=== PATIENT | male | born 1965 | race Hispanic/Latino ===

== ENCOUNTER 2021-02-16 20:38 | Emergency (ER) | payer OTHER ==
--- NOTE | 2021-02-17 01:30 | ER ---
Nurse's Notes [facility] Name: Liu Almonte Age: 55 yrs Sex: Male : 1965 Arrival Date: 02/16/2021 Time: 20:44 Bed Treatment Private MD: Diagnosis: SARS-associated coronavirus as the cause of diseases classified elsewhere Presentation: 02/16 22:07 Chief complaint: Patient states: tingling head, back and chest slight pain under his kg ribs. Pt stated "It feels like panic attack". Pt went to [facility] 02/08 and was tested for COVID it was negative. Had chest x-ray and was told he had Pneumonia went back to [facility] on 02/10 and retested for COVID because he still didn't feel well and it was negative. Pt stated he still doesn't feel good and very fatigued. Coronavirus screen: Client denies travel out of the [place] in the last 14 days. At this time, unable to obtain information related to travel outside the [place] Client presents with at least one sign or symptom that may indicate coronavirus-19. Standard/surgical mask placed on the client. Provider contacted for isolation considerations. At this time, the client does not indicate any symptoms associated with coronavirus-19. The client reports previous COVID testing was negative. Date of collection: February 10, 2021. Ebola Screen: Patient negative for fever greater than or equal to 101.5 degrees Fahrenheit, and additional compatible Ebola Virus Disease symptoms Patient denies exposure to infectious person. Patient denies travel to an Ebola-affected area in the 21 days before illness onset. Initial Sepsis Screen: Does the patient meet any 2 criteria? No. Patient's initial sepsis screen is negative. Does the patient have a suspected source of infection? No. Patient's initial sepsis screen is negative. Risk Assessment: Do you want to hurt yourself or someone else? Patient reports no desire to harm self or others. Onset of symptoms was February 06, 2021. 22:07 Method Of Arrival: Ambulatory kg 22:07 Acuity: [place] 4 kg Triage Assessment: 02/17 01:33 Headache History: Denies prior headaches. General: Appears in no apparent distress. sh9 Behavior is calm, cooperative. Pain: Complains of pain in generalized Pain currently is 4 out of 10 on a pain scale. Pain began one week ago Also complains of no other associated symptoms. Neuro: No deficits noted. Historical: - Allergies: 02/16 22:12 Iodine; kg - Home Meds: 22:12 amlodipine 2.5 mg tab 1 tab once daily [Active]; benzonatate 200 mg oral cap 1 cap kg [Active]; Januvia 100 mg oral tab 1 tab once daily [Active]; hydroxyzine HCl 100 mg Oral tab 100 mg daily [Active]; glimepiride 4 mg Oral tab 1 tab once daily [Active]; carvedilol 3.125 mg oral tab 1 tab 2 times per day [Active]; Cefuroxime Oral 500 mg daily [Active]; losartan 100 mg oral tab 1 tab once daily [Active]; fluoxetine 20 mg Oral cap 1 cap once daily [Active]; metformin 500 mg Oral tr24 1 tab [Active]; atorvastatin 40 mg oral tab 1 tab once daily [Active]; Lantus U-100 Insulin 100 unit/mL Sub-Q crtg [Active]; - PMHx: 22:12 Hypercholesterolemia; Hypertensive disorder; Anxiety; DM; Tib/Fib SX Left; Left Ankle; kg - Immunization history:: Adult Immunizations not immunized, Client reports having NOT received the Covid vaccine. - Social history:: Smoking status: Patient reports the use of cigarette tobacco products, Patient/guardian denies using tobacco, Stopped _ months ago 1. Screenin/26 01:35 Abuse screen: Denies threats or abuse. Denies injuries from another. Nutritional sh9 screening: No deficits noted. Tuberculosis screening: No symptoms or risk factors identified. Fall Risk None identified. Assessment: 01:34 General: Appears in no apparent distress. Behavior is calm, cooperative. Pain: sh9 Complains of pain in generalized. Neuro: No deficits noted. Cardiovascular: No deficits noted. Respiratory: No deficits noted. GI: No deficits noted. : No deficits noted. EENT: No deficits noted. Derm: No deficits noted. No signs and/or symptoms reported regarding the dermatologic system. Musculoskeletal: No deficits noted. Vital Signs: 02/16 22:07 BP 153 / 90; Pulse 94; Resp 20; Temp 98.2(O); Pulse Ox 100% on R/A; Weight 99.79 kg kg (M); Height 5 ft. 4 in. (162.56 cm) (R); Pain 5/10; 02/17 01:34 BP 155 / 88; Pulse 93; Resp 18; Pulse Ox 100% ; sh9 02/16 22:07 Body Mass Index 37.76 (99.79 kg, 162.56 cm) kg ED Course: 02/16 20:44 Patient arrived in ED. bp1 22:12 Triage completed. kg 22:12 Arm band placed on right wrist. kg 22:43 XRAY Chest Pa And Lat (2 Views) In Process Unspecified. EDMS 02/17 00:53 Shira Ramos, RN is Primary Nurse. sh9 01:03 Juan Jose Jones PA is PHCP. cp 01:03 Misbah Garcia MD is Attending Physician. cp 01:35 Patient has correct armband on for positive identification. Bed in low position. Call 9 light in reach. 01:45 No provider procedures requiring assistance completed. Patient did not have IV access sh9 during this emergency room visit. Administered Medications: No medications were administered Outcome: 01:29 Discharge ordered by MD. cp 01:45 Discharged to home ambulatory. sh9 01:45 Condition: stable 01:45 Discharge instructions given to patient. 01:46 Patient left the ED. sh9 Signatures: Dispatcher [employer] EDNV Juan Jose Jones PA PA cp Paniauga, Brittany bp1 Katherine Messer, PAULINA RN kg Shira Ramos, PAULINA RN sh9
--- NOTE | 2021-02-17 01:30 | EDPHYS ---
Physician Documentation [facility] Name: Liu Almonte Age: 55 yrs Sex: Male : 1965 Arrival Date: 02/16/2021 Time: 20:44 Bed Treatment Private MD: ED Physician Misbah Garcia HPI: 02/17 01:17 This 55 yrs old Male presents to ER via Ambulatory with complaints of cp Headache, Chest Tightness, Joint Pain, -Diagnosed with bacteria pneumonia 02/08/21. 01:17 The patient complains of pain to the top of head. The patient describes the headache as cp aching. 01:17 Associated signs and symptoms: Pertinent positives: malaise, joint pain. Severity of cp symptoms: in the emergency department the pain has improved, mildly. Historical: - Allergies: 02/16 22:12 Iodine; kg - Home Meds: 22:12 amlodipine 2.5 mg tab 1 tab once daily [Active]; benzonatate 200 mg oral cap 1 cap kg [Active]; Januvia 100 mg oral tab 1 tab once daily [Active]; hydroxyzine HCl 100 mg Oral tab 100 mg daily [Active]; glimepiride 4 mg Oral tab 1 tab once daily [Active]; carvedilol 3.125 mg oral tab 1 tab 2 times per day [Active]; Cefuroxime Oral 500 mg daily [Active]; losartan 100 mg oral tab 1 tab once daily [Active]; fluoxetine 20 mg Oral cap 1 cap once daily [Active]; metformin 500 mg Oral tr24 1 tab [Active]; atorvastatin 40 mg oral tab 1 tab once daily [Active]; Lantus U-100 Insulin 100 unit/mL Sub-Q crtg [Active]; - PMHx: 22:12 Hypercholesterolemia; Hypertensive disorder; Anxiety; DM; Tib/Fib SX Left; Left Ankle; kg - Immunization history:: Adult Immunizations not immunized, Client reports having NOT received the Covid vaccine. - Social history:: Smoking status: Patient reports the use of cigarette tobacco products, Patient/guardian denies using tobacco, Stopped _ months ago 1. ROS: 02/17 01:18 Constitutional: Positive for body aches, Negative for chills, fever, poor PO intake. cp 01:18 Cardiovascular: Negative for chest pain, edema, palpitations. cp 01:18 Respiratory: Positive for shortness of breath, Negative for wheezing. 01:18 Neck: Negative for pain with movement, pain at rest, stiffness. cp 01:18 Abdomen/GI: Negative for abdominal pain, nausea, vomiting, and diarrhea. 01:18 Skin: Negative for rash. 01:18 Neuro: Positive for headache, Negative for altered mental status, weakness. 01:18 All other systems are negative. Exam: 01:24 Head/Face: Normocephalic, atraumatic. cp 01:24 Constitutional: The patient appears in no acute distress, alert, awake, non-diaphoretic, non-toxic, well developed, well nourished, obese. 01:24 Eyes: Periorbital structures: appear normal, Conjunctiva: normal, no exudate, no injection, Sclera: no appreciated abnormality, Lids and lashes: appear normal, bilaterally. 01:24 ENT: External ear(s): are unremarkable, Nose: is normal, Mouth: Lips: moist, Oral mucosa: pink and intact, moist, Posterior pharynx: Airway: no evidence of obstruction, patent. 01:24 Neck: ROM/movement: is normal, is supple, without pain, no range of motions limitations, no meningismus. 01:24 Chest/axilla: Inspection: normal, Palpation: is normal, no crepitus, no tenderness. 01:24 Cardiovascular: Rate: normal, Rhythm: regular. 01:24 Respiratory: the patient does not display signs of respiratory distress, Respirations: normal, no use of accessory muscles, no retractions, labored breathing, is not present, Breath sounds: are clear throughout, no decreased breath sounds, no stridor, no wheezing. 01:24 Abdomen/GI: Inspection: abdomen appears normal, Palpation: abdomen is soft and non-tender, in all quadrants. 01:24 Neuro: Orientation: to person, place \T\ time. Mentation: is normal, Motor: moves all fours, strength is normal. Vital Signs: 02/16 22:07 BP 153 / 90; Pulse 94; Resp 20; Temp 98.2(O); Pulse Ox 100% on R/A; Weight 99.79 kg kg (M); Height 5 ft. 4 in. (162.56 cm) (R); Pain 5/10; 02/17 01:34 BP 155 / 88; Pulse 93; Resp 18; Pulse Ox 100% ; sh9 02/16 22:07 Body Mass Index 37.76 (99.79 kg, 162.56 cm) kg MDM: 01:00 Differential diagnosis: migraine, sinusitis, tension headache, influenza, COVID-19. cp 01:15 Patient medically screened. cp 01:27 Data reviewed: vital signs, nurses notes, lab test result(s), and as a result, I will cp discharge patient. Test interpretation: by ED physician or midlevel provider: chest xray negative for focal pneumonia. Counseling: I had a detailed discussion with the patient and/or guardian regarding: the historical points, exam findings, and any diagnostic results supporting the discharge/admit diagnosis, lab results, radiology results. 02/16 23:55 Order name: SARS-COV-2 RT PCR; Complete Time: 01:03 EDMS 02/16 22:23 Order name: XRAY Chest Pa And Lat (2 Views) kg Administered Medications: No medications were administered Disposition: 01:40 Chart complete. cp 03:28 Co-signature as Attending Physician, Misbah Garcia MD. pkl Disposition Summary: 02/17/21 01:29 Discharge Ordered Location: Home cp Problem: new cp Symptoms: are unchanged cp Condition: Stable cp Diagnosis - SARS-associated coronavirus as the cause of diseases classified elsewhere cp Followup: cp - With: Private Physician - When: 2 - 3 days - Reason: Worsening of condition Discharge Instructions: - Discharge Summary Sheet cp - COVID-19 cp - Things to Know about the COVID-19 Pandemic - [facility] cp - 10 Things You Can Do to Manage Your COVID-19 Symptoms at Home - [facility] cp - COVID-19: Quarantine vs. Isolation - [facility] cp - Prevent the Spread of COVID-19 if You Are Sick - [facility] cp Forms: - Medication Reconciliation Form cp - Thank You Letter cp - Antibiotic Education cp - Prescription Opioid Use cp Prescriptions: - ivermectin 3 mg Oral tablet - take 6 tablet by ORAL route every other day; 12 tablet; Refills: 0, Product cp Selection Permitted - Zithromax Z-Donis 250 mg Oral Tablet - take 1 tablet by ORAL route as directed for 5 days Day 1 - take two (2) tablets cp one time. Day 2, 3, 4 , 5 take one (1) tablet once daily.; 6 tablet; Refills: 0, Product Selection Permitted Signatures: Dispatcher [employer] EDMS Misbah Garcia MD MD pkl Juan Jose Jones PA PA cp Graham, Kristen, RN RN kg Corrections: (The following items were deleted from the chart) 02/16 22:57 22:23 CORONAVIRUS+ ordered. EDMS EDMS
[2021-02-17 01:52] VITALS: TEMP 98.2; O2SAT 100
[2021-02-17 01:53] VITALS: BP 155/88
--- NOTE | 2021-02-17 08:48 | RAD REPORT ---
EXAM DESCRIPTION: RAD - Chest Pa And Lat (2 Views) - 02/16/2021 10:43 pm CLINICAL HISTORY: PAIN Chest pain. COMPARISON: No comparisons FINDINGS: The lungs are grossly clear. The heart is normal in size. No displaced fractures. Small hi atal hernia.
== END 2021-02-17 01:46 | disposition home or self-care (01) ==
LOC: ER 20:38
DX: U07.1 COVID-19 (principal); I10 Essential (primary) hypertension; E11.9 Type 2 diabetes mellitus without complications; E78.00 Pure hypercholesterolemia, unspecified; Z79.4 Long term (current) use of insulin
CPT/HCPCS: 71046; 99283; U0003

== ENCOUNTER 2021-07-01 10:05 | Emergency (ER) | payer OTHER ==
[2021-07-01] MEDS ORDERED: KETOROLAC 30 MG/ML INJ ONE (11:34)
--- NOTE | 2021-07-01 11:38 | RAD REPORT ---
EXAM DESCRIPTION: CT - Head Brain Wo Cont - 07/01/2021 11:21 am CLINICAL HISTORY: HEADACHE, nausea, dizziness, recent COVID exposure COMPARISON: No comparisons TECHNIQUE: Axial 5 mm thick images of the head were obtained without IV contrast. All CT scans are performed using dose optimization technique as appropriate and may include automated exposure control or mA/KV adjustment according to patient size. FINDINGS: No intracranial hemorrhage, mass, edema or shift of mid-line structures. No acute cortical based infarction, cortical edema or sulcal effacement. No abnormal extra-axial fluid collections. Ve ntricles are normal. No measurable atrophy. There are few punctate areas of diminished attenuation sc attered in the cerebral white matter. Patient is relatively on; however, this is typical for mild chr onic ischemic change. Vasculitis, migraine headache or demyelinization etiologies are possible but wo uld need supporting clinical findings. Mastoid air cells and visualized portions of the paranasal sinuses are clear. No acute bony findings. IMPRESSION: No hemorrhage, mass or acute intracranial finding. Scattered small attenuation abnormalities of the cerebral white matter are typically chronic ischemic change though the patient is relatively young. Vasculitis, demyelinization and migraine headache et iologies are considerations if there are supporting clinical findings. No emergent CT finding noted. Follow-up outpatient MRI imaging may be helpful for better characteriza tion of the cerebral white matter findings.
[2021-07-01 12:06] LABS: Absolute Lymphocytes (CBC) 1.6 K/uL (0.7-4.9); Hematocrit 46.7 % (39.6-49.0); Lymphocytes % 17.1 % (15.3-44.8); MPV 8.3 fL (7.6-11.3)
[2021-07-01 12:24] LABS: ALT/SGPT 48 U/L (12-78); AST/SGOT 20 U/L (15-37); Albumin 3.4 g/dL (3.4-5.0); Alkaline Phosphatase 82 U/L (45-117); BUN Blood Urea Nitrogen 16 mg/dL (7-18); Bicarbonate 22 mmol/L (21-32); Bilirubin Direct < 0.1 mg/dL (0-0.2); Bilirubin Total 0.4 mg/dL (0.2-1.0); Creatine Phosphokinase 141 U/L (39-308); Potassium 4.4 mmol/L (3.5-5.1); Protein, Total 7.3 g/dL (6.4-8.2); Sodium Level 135 mmol/L (136-145)
[2021-07-01 12:27] LABS: Glucose Level 447 mg/dL (74-106)
[2021-07-01 13:03] LABS: SARS-COV-2 RT PCR POSITIVE (NEGATIVE)
--- NOTE | 2021-07-01 13:09 | ER ---
Nurse's Notes [facility] Name: Liu Almonte Age: 56 yrs Sex: Male : 1965 Arrival Date: 07/01/2021 Time: 10:07 Bed 19 Private MD: Diagnosis: SARS-associated coronavirus as the cause of diseases classified elsewhere;Hyperglycemia, unspecified Presentation: 07/01 10:37 Chief complaint: Patient states: i have had a headache for 4 or 5 days. it goes away tw2 when i take ibuprofen. i also have had neck and LEFT shoulder pain that started a week ago. i went to see my mom over [place] and she was COVID positive. i do have some congestion. i do want to be tested. 10:43 Coronavirus screen: cough unrelated to allergies, headache. Ebola Screen: Patient tw2 denies travel to an Ebola-affected area in the 21 days before illness onset. Initial Sepsis Screen: Does the patient meet any 2 criteria? HR > 90 bpm. No. Patient's initial sepsis screen is negative. Does the patient have a suspected source of infection? No. Patient's initial sepsis screen is negative. Risk Assessment: Do you want to hurt yourself or someone else? Patient reports no desire to harm self or others. Onset of symptoms was July 01, 2021. 10:43 Method Of Arrival: Ambulatory tw2 10:43 Acuity: [place] 3 tw2 Triage Assessment: 10:42 Headache History: The patient has had previous headaches and this one is different than tw2 previous episodes, and this one is more severe than previous episodes. General: Appears in no apparent distress. obese, well groomed, Behavior is calm, cooperative, appropriate for age. Pain: Pain radiates to neck Pain currently is 6 out of 10 on a pain scale. Pain began 4-5 days Also complains of no other associated symptoms. Historical: - Allergies: 10:40 Iodine; tw2 - Home Meds: 10:40 carvedilol 3.125 mg Oral tab 1 tab 2 times per day [Active]; amlodipine 2.5 mg tab 1 tw2 tab once daily [Active]; atorvastatin 40 mg Oral tab 1 tab once daily [Active]; benzonatate 200 mg Oral cap 1 cap [Active]; Cefuroxime Oral 500 mg daily [Active]; fluoxetine 20 mg Oral cap 1 cap once daily [Active]; glimepiride 4 mg Oral tab 1 tab once daily [Active]; hydroxyzine HCl 100 mg Oral tab 100 mg daily [Active]; Januvia 100 mg Oral tab 1 tab once daily [Active]; Lantus U-100 Insulin 100 unit/mL Sub-Q crtg [Active]; losartan 100 mg Oral tab 1 tab once daily [Active]; metformin 500 mg Oral tr24 1 tab [Active]; - PMHx: 10:40 Anxiety; DM; Hypertensive disorder; Hypercholesterolemia; Left Ankle; Tib/Fib SX Left; tw2 - Immunization history:: Client reports having NOT received the Covid vaccine. Flu vaccine is not up to date. - Social history:: Smoking status: Patient reports the use of cigarette tobacco products, denies chronic smoking, but will smoke occasionally, Patient uses street drugs, marijuana, daily, usually about every day. Screenin:48 Abuse screen: Denies threats or abuse. Denies injuries from another. Nutritional bp screening: No deficits noted. Tuberculosis screening: No symptoms or risk factors identified. Fall Risk None identified. Assessment: 10:41 Reassessment: pt swabbed in triage by Justine Hatfield. Pain: Complains of pain in face - tw2 all over. Neuro: Reports headache. 10:48 Reassessment: PT AMBULATORY FROM TRIAGE. bp 13:14 Reassessment: PT D/C HOME AMBULATORY, DX WITH SARS-COVID. bp Vital Signs: 10:41 BP 162 / 94; Pulse 125; Resp 18; Temp 97.8(TE); Pulse Ox 96% on R/A; Weight 108.86 kg tw2 (R); Height 5 ft. 4 in. (162.56 cm); Pain 6/10; 13:13 BP 127 / 80; Pulse 95; Resp 17; Pulse Ox 99% ; bp 10:41 Body Mass Index 41.20 (108.86 kg, 162.56 cm) tw2 ED Course: 10:07 Patient arrived in ED. as 10:41 Arm band placed on. tw2 10:43 Triage completed. tw2 10:47 González Galdamez, PAULINA is Primary Nurse. bp 10:48 Patient has correct armband on for positive identification. Bed in low position. Call bp light in reach. Side rails up X2. 10:50 Navarro Bocanegra MD is Attending Physician. sp3 11:20 CT Head Brain wo Cont In Process Unspecified. EDMS 11:43 Inserted saline lock: 20 gauge in left forearm, using aseptic technique. Blood bp collected. 13:14 No provider procedures requiring assistance completed. IV discontinued, intact, bp bleeding controlled, No redness/swelling at site. Pressure dressing applied. Administered Medications: 11:40 Drug: Ketorolac 30 mg Route: IVP; Site: left forearm; bp 13:15 Follow up: Response: Pain is decreased bp Outcome: 13:09 Discharge ordered by . sp3 13:14 Discharged to home ambulatory. bp 13:14 Condition: stable 13:14 Discharge instructions given to patient, Instructed on discharge instructions, follow up and referral plans. Demonstrated understanding of instructions, follow-up care. 13:20 Patient left the ED. bp Signatures: Dispatcher [employer] EDMS Naty Muñoz Tara, RN RN tw2 González Galdamez, RN RN bp Navarro Bocanegra MD MD sp3
--- NOTE | 2021-07-01 13:09 | EDPHYS ---
Physician Documentation [facility] Name: Liu Almonte Age: 56 yrs Sex: Male : 1965 Arrival Date: 07/01/2021 Time: 10:07 Bed 19 Private MD: ED Physician Navarro Bocanegra HPI: 07/01 11:09 This 56 yrs old Male presents to ER via Ambulatory with complaints of sp3 Headache, Shoulder Pain, Neck Pain, >24Hrs Old. 11:11 This 56 yrs old Male presents to ER via Ambulatory with complaints of sp3 Headache, Shoulder Pain, Neck Pain, >24Hrs Old. 11:11 56-year-old male with history of hypertension, diabetes, hyperlipidemia, and "kidney sp3 problems" (patient has an appointment with a environmental services project manager in a few weeks as all of his physicians including PCP PAULINA Nieto) presents to the ED today for chief complaint headache, bilateral upper back and neck pain for 4 to 5 days. Patient states that the muscle pain is worse than the headache and started when he was visiting his mother who was diagnosed with COVID. He also states that the bed he was sleeping on "had a hole in it and was very uncomfortable" but now that he is back in his bed the cramping and pain is still going on. He comes in today for evaluation of the symptoms as well as a COVID 19 test. Patient states that his pain usually subsides with ibuprofen he has been taking it off and on for the last several days which has helped. On review of systems, he denies chest pain, shortness of breath, cough, fever, loss of taste or smell, abdominal pain, nausea, vomiting, diarrhea, rash, neuro symptoms, any other symptoms at this time.. Historical: - Allergies: 10:40 Iodine; tw2 - Home Meds: 10:40 carvedilol 3.125 mg Oral tab 1 tab 2 times per day [Active]; amlodipine 2.5 mg tab 1 tw2 tab once daily [Active]; atorvastatin 40 mg Oral tab 1 tab once daily [Active]; benzonatate 200 mg Oral cap 1 cap [Active]; Cefuroxime Oral 500 mg daily [Active]; fluoxetine 20 mg Oral cap 1 cap once daily [Active]; glimepiride 4 mg Oral tab 1 tab once daily [Active]; hydroxyzine HCl 100 mg Oral tab 100 mg daily [Active]; Januvia 100 mg Oral tab 1 tab once daily [Active]; Lantus U-100 Insulin 100 unit/mL Sub-Q crtg [Active]; losartan 100 mg Oral tab 1 tab once daily [Active]; metformin 500 mg Oral tr24 1 tab [Active]; - PMHx: 10:40 Anxiety; DM; Hypertensive disorder; Hypercholesterolemia; Left Ankle; Tib/Fib SX Left; tw2 - Immunization history:: Client reports having NOT received the Covid vaccine. Flu vaccine is not up to date. - Social history:: Smoking status: Patient reports the use of cigarette tobacco products, denies chronic smoking, but will smoke occasionally, Patient uses street drugs, marijuana, daily, usually about every day. ROS: 11:14 Constitutional: Negative for fever, chills, and weight loss, Eyes: Negative for injury, sp3 pain, redness, and discharge, ENT: Negative for injury, pain, and discharge, Neck: Negative for injury, pain, and swelling, Cardiovascular: Negative for chest pain, palpitations, and edema, Respiratory: Negative for shortness of breath, cough, wheezing, and pleuritic chest pain, Abdomen/GI: Negative for abdominal pain, nausea, vomiting, diarrhea, and constipation, Back: Negative for injury and pain, MS/Extremity: Negative for injury and deformity, Skin: Negative for injury, rash, and discoloration, Psych: Negative for depression, anxiety, suicide ideation, homicidal ideation, and hallucinations, Allergy/Immunology: Negative for hives, rash, and allergies, Endocrine: Negative for neck swelling, polydipsia, polyuria, polyphagia, and marked weight changes, Hematologic/Lymphatic: Negative for swollen nodes, abnormal bleeding, and unusual bruising. 11:14 All other systems are negative. Exam: 11:14 Constitutional: This is a well developed, well nourished patient who is awake, alert, sp3 and in no acute distress. Head/Face: Normocephalic, atraumatic. Eyes: Pupils equal round and reactive to light, extra-ocular motions intact. Lids and lashes normal. Conjunctiva and sclera are non-icteric and not injected. Cornea within normal limits. Periorbital areas with no swelling, redness, or edema. ENT: Nares patent. No nasal discharge, no septal abnormalities noted. External auditory canals are clear. Oropharynx with no redness, swelling, or masses, exudates, or evidence of obstruction, uvula midline. Mucous membranes moist. Chest/axilla: Normal chest wall appearance and motion. Nontender with no deformity. No lesions are appreciated. Cardiovascular: Regular rate and rhythm with a normal S1 and S2. No gallops, murmurs, or rubs. Normal PMI, no JVD. No pulse deficits. Respiratory: Lungs have equal breath sounds bilaterally, clear to auscultation and percussion. No rales, rhonchi or wheezes noted. No increased work of breathing, no retractions or nasal flaring. Abdomen/GI: Soft, non-tender, with normal bowel sounds. No distension or tympany. No guarding or rebound. No evidence of tenderness throughout. Back: No spinal tenderness. No costovertebral tenderness. Full range of motion. Skin: Warm, dry with normal turgor. Normal color with no rashes, no lesions, and no evidence of cellulitis. MS/ Extremity: Pulses equal, no cyanosis. Neurovascular intact. Full, normal range of motion. Neuro: Awake and alert, GCS 15, oriented to person, place, time, and situation. Cranial nerves II-XII grossly intact. Motor strength 5/5 in all extremities. Sensory grossly intact. Cerebellar exam normal. Normal gait. Psych: Awake, alert, with orientation to person, place and time. Behavior, mood, and affect are within normal limits. 11:14 Neck: 56-year-old male with chief complaint muscle aches and mild headache. Will obtain COVID-19 test, head CT, routine labs including CK level. Event highly suspicious for ICH, meningitis, cord compression, or any other neurological emergency at this time. If work-up is negative will discharge patient to PCP follow-up and continued outpatient management.. Vital Signs: 10:41 BP 162 / 94; Pulse 125; Resp 18; Temp 97.8(TE); Pulse Ox 96% on R/A; Weight 108.86 kg tw2 (R); Height 5 ft. 4 in. (162.56 cm); Pain 6/10; 13:13 BP 127 / 80; Pulse 95; Resp 17; Pulse Ox 99% ; bp 10:41 Body Mass Index 41.20 (108.86 kg, 162.56 cm) tw2 MDM: 11:01 Patient medically screened. sp3 13:07 Data reviewed: vital signs, nurses notes. sp3 13:08 ED course: As COVID-19 as suspected given his high risk contact. CT head is negative sp3 labs are normal other than glucose. Will discharge patient home at this time with supportive care directions.. 07/01 10:40 Order name: COVID-19/FLU A+B (Document "Date of Onset" if Symptomatic); Complete Time: tw2 13:07 07/01 11:05 Order name: Basic Metabolic Panel; Complete Time: 13:07 sp3 07/01 11:05 Order name: CBC with Diff; Complete Time: 13: sp3 07/01 11:05 Order name: Hepatic Function; Complete Time: 13: sp3 07/01 11:05 Order name: CK; Complete Time: 13:07 sp3 07/01 11:05 Order name: CT Head Brain wo Cont; Complete Time: 13:07 sp3 07/01 11:05 Order name: IV Saline Lock; Complete Time: 11:43 sp3 07/01 11:05 Order name: Labs collected and sent; Complete Time: 11:43 sp3 Administered Medications: 11:40 Drug: Ketorolac 30 mg Route: IVP; Site: left forearm; bp 13:15 Follow up: Response: Pain is decreased bp Disposition Summary: 07/01/21 13:09 Discharge Ordered Location: Home sp3 Condition: Stable sp3 Diagnosis - SARS-associated coronavirus as the cause of diseases classified elsewhere sp3 - Hyperglycemia, unspecified sp3 Followup: sp3 - With: Private Physician - When: As needed - Reason: Continuance of care Discharge Instructions: - Discharge Summary Sheet sp3 - Hyperglycemia sp3 - COVID-19 sp3 - 10 Things You Can Do to Manage Your COVID-19 Symptoms at Home - [facility] sp3 Forms: - Medication Reconciliation Form sp3 - Thank You Letter sp3 - Antibiotic Education sp3 - Prescription Opioid Use sp3 Signatures: Dispatcher [employer] Hillary Hernandez RN RN tw2 González Galdamez RN RN bp Navarro Bocanegra MD MD sp3
[2021-07-01 13:31] VITALS: TEMP 97.8
[2021-07-01 13:32] VITALS: BP 127/80; O2SAT 99
== END 2021-07-01 13:20 | disposition home or self-care (01) ==
LOC: ER 10:05
DX: U07.1 COVID-19 (principal); E11.65 Type 2 diabetes mellitus with hyperglycemia; F41.9 Anxiety disorder, unspecified
CPT/HCPCS: 85025; 80048; 36415; 82550; 80076; 0240U; 70450; 96374; 99284

== ENCOUNTER 2022-11-10 13:13 | Emergency (ER) | payer OTHER ==
[2022-11-10 13:40] LABS: Absolute Lymphocytes (CBC) 3.2 K/uL (0.7-4.9); Hematocrit 43.1 % (39.6-49.0); Lymphocytes % 29.8 % (15.3-44.8); MCV 88.1 fL (80-100); MPV 8.5 fL (7.6-11.3); RBC Red Blood Cell Count 4.89 M/uL (4.33-5.43)
--- NOTE | 2022-11-10 13:44 | RAD REPORT ---
EXAM DESCRIPTION: CT - Ct Stroke Brain Wo Cont - 11/10/2022 1:33 pm CLINICAL HISTORY: STROKE ALERT COMPARISON: Head Brain Wo Cont dated 07/01/2021 TECHNIQUE: Noncontrast head CT images ad were obtained without IV contrast. Multiplanar reformats we re generated and reviewed. All CT scans are performed using dose optimization technique as appropriate and may include automated exposure control or mA/KV adjustment according to patient size. FINDINGS: No intracranial hemorrhage, mass, or edema. Midline structures are unremarkable. Normal ventricular caliber for age. Right subinsular and basal ganglia foci of hypoattenuation are stable, could reflect sequelae of blade balancer vicki small vessel ischemic changes. Chen-white matter differentiation is preserved, without evidence o f acute infarct. No abnormal extra-axial fluid collections. Mastoid air cells and visualized portions of the paranasal sinuses are clear. No acute bony findings. IMPRESSION: No evidence of an acute intracranial process. Stable right-sided white matter foci of hypoattenuation, nonspecific, but could reflect sequelae of chronic small vessel ischemic changes. The findings were communicated to Juan Jose Aburto on 11/10/2022 at 13:39 hours.
[2022-11-10] MEDS ORDERED: NA CHLORIDE 0.9% 1,000 ML ONE (13:48)
[2022-11-10] MEDS ORDERED: FAMOTIDINE 20 MG/2 ML VIAL IV ONE (13:48)
[2022-11-10] MEDS ORDERED: FOLIC ACID 5 MG/ML VIAL ONE (13:49)
[2022-11-10 13:51] LABS: Protime INR 1.04
--- NOTE | 2022-11-10 13:53 | EDPHYS ---
Physician Documentation [facility] Name: Liu Almonte Age: 57 yrs Sex: Male : 1965 Arrival Date: 11/10/2022 Time: 13:13 Bed 5 Private MD: ED Physician Juan Jose Aburto HPI: 11/10 13:29 This 57 yrs old Male presents to ER via EMS with complaints of S/S of Possible espinoza Stroke. 13:29 The patient's problem is reported as weakness, in the left upper extremity, in the left espinoza lower extremity. Onset: The symptoms/episode began/occurred 45 hour(s) ago. Duration: The episode is continuous. Context: the episode(s) was witnessed, by family. The symptoms are alleviated by nothing. The symptoms are aggravated by nothing. Associated signs and symptoms: Pertinent positives: weakness. Severity of symptoms: At their worst the symptoms were moderate in the emergency department the symptoms are unchanged. Patient's baseline: Neuro: alert and fully oriented. The patient has not experienced similar symptoms in the past. Historical: - Allergies: 13:26 Iodine; mb9 - Home Meds: 14:02 dexcom [Active]; Fluconazole Oral [Active]; Insulin Glargine Sub-Q [Active]; mb9 - PMHx: 13:26 Anxiety; Tib/Fib SX Left; Hypertensive disorder; Left Ankle; Hypercholesterolemia; DM; mb9 - PSHx: 13:26 None; mb9 - Immunization history:: Adult Immunizations up to date. - Social history:: Smoking status: Patient reports the use of cigarette tobacco products, denies chronic smoking, but will smoke occasionally. ROS: 13:30 Constitutional: Negative for fever, chills, and weight loss, Eyes: Negative for injury, espinoza pain, redness, and discharge, ENT: Negative for injury, pain, and discharge, Neck: Negative for injury, pain, and swelling, Cardiovascular: Negative for chest pain, palpitations, and edema, Respiratory: Negative for shortness of breath, cough, wheezing, and pleuritic chest pain, Abdomen/GI: Negative for abdominal pain, nausea, vomiting, diarrhea, and constipation, Back: Negative for injury and pain, : Negative for injury, bleeding, discharge, and swelling, MS/Extremity: Negative for injury and deformity, Skin: Negative for injury, rash, and discoloration, Psych: Negative for depression, anxiety, suicide ideation, homicidal ideation, and hallucinations, Allergy/Immunology: Negative for hives, rash, and allergies, Endocrine: Negative for neck swelling, polydipsia, polyuria, polyphagia, and marked weight changes, Hematologic/Lymphatic: Negative for swollen nodes, abnormal bleeding, and unusual bruising. 13:30 Neuro: Positive for dizziness, weakness, of the left arm and left leg. 13:30 Psych: Negative for anxiety, depression. Exam: 13:43 Radiologist reports: neg espinoza 13:43 Constitutional: This is a well developed, well nourished patient who is awake, alert, and in no acute distress. Head/Face: Normocephalic, atraumatic. Eyes: Pupils equal round and reactive to light, extra-ocular motions intact. Lids and lashes normal. Conjunctiva and sclera are non-icteric and not injected. Cornea within normal limits. Periorbital areas with no swelling, redness, or edema. ENT: Nares patent. No nasal discharge, no septal abnormalities noted. Tympanic membranes are normal and external auditory canals are clear. Oropharynx with no redness, swelling, or masses, exudates, or evidence of obstruction, uvula midline. Mucous membranes moist. Neck: Trachea midline, no thyromegaly or masses palpated, and no cervical lymphadenopathy. Supple, full range of motion without nuchal rigidity, or vertebral point tenderness. No Meningismus. Chest/axilla: Normal chest wall appearance and motion. Nontender with no deformity. No lesions are appreciated. Cardiovascular: Regular rate and rhythm with a normal S1 and S2. No gallops, murmurs, or rubs. Normal PMI, no JVD. No pulse deficits. Respiratory: Lungs have equal breath sounds bilaterally, clear to auscultation and percussion. No rales, rhonchi or wheezes noted. No increased work of breathing, no retractions or nasal flaring. Abdomen/GI: Soft, non-tender, with normal bowel sounds. No distension or tympany. No guarding or rebound. No evidence of tenderness throughout. Back: No spinal tenderness. No costovertebral tenderness. Full range of motion. Male : Normal genitalia with no discharge or lesions. Skin: Warm, dry with normal turgor. Normal color with no rashes, no lesions, and no evidence of cellulitis. MS/ Extremity: Pulses equal, no cyanosis. Neurovascular intact. Full, normal range of motion. Psych: Awake, alert, with orientation to person, place and time. Behavior, mood, and affect are within normal limits. 13:43 ECG was reviewed by the Attending Physician. Vital Signs: 13:24 BP 200 / 90; Pulse 120; Resp 18; Temp 98.1(O); Pulse Ox 100% on R/A; Weight 104 kg; mb9 Height 5 ft. 4 in. ; Pain 0/10; 13:53 BP 140 / 82; Pulse 115; Resp 20; Pulse Ox 99% on R/A; mb9 14:08 BP 147 / 84; Pulse 112; Resp 18; Pulse Ox 99% on R/A; mb9 13:24 Body Mass Index 39.36 (104.00 kg, 162.56 cm) mb9 13:24 Pain Scale: Adult mb9 NIH Stroke Scale Scores: 13:20 NIHSS Score: 3 mb9 13:24 NIHSS Score: 3 mb9 13:52 NIHSS Score: 4 espinoza 14:08 NIHSS Score: 3 mb9 14:23 NIHSS Score: 2 mb9 Kenney Coma Score: 13:52 Eye Response: spontaneous(4). Motor Response: obeys commands(6). Verbal Response: espinoza oriented(5). Total: 15. MDM: 13:25 Patient medically screened. espinoza 13:45 Differential diagnosis: CVA, TIA. Data reviewed: vital signs, nurses notes, lab test espinoza result(s), EKG, radiologic studies, CT scan, MRI, plain films. Consideration of Admission/Observation Patient was admitted/placed on observation. Escalation of care including admission/observation considered. Management of patient was discussed with the following: Safety Advisor: neurologist. Independent interpretation of the following test(s) in the Emergency Department EKG: See my EKG interpretation above. Test considered but Not performed: CT: no ct angio head or neck. Care significantly affected by the following chronic conditions: Diabetes, Hypertension, Obesity, hypoerchlesterol. Counseling: I had a detailed discussion with the patient and/or guardian regarding: the historical points, exam findings, and any diagnostic results supporting the discharge/admit diagnosis, the presence of at least one elevated blood pressure reading (>120/80) during this emergency department visit, lab results, the need to transfer to another facility, for higher level of care, [facility] does not immediately have the required specialist. 11/10 13:19 Order name: Basic Metabolic Panel 11/10 13:19 Order name: CBC with Diff; Complete Time: 13:59 11/10 13:19 Order name: High Sensitivity Troponin 11/10 13:19 Order name: Protime (+inr); Complete Time: 13:59 11/10 13:19 Order name: Ptt, Activated; Complete Time: 13:59 11/10 13:27 Order name: CRP; Complete Time: 13:59 [facility] 11/10 13:47 Order name: CREATININE WHOLE BLOOD; Complete Time: 13:59 EDMD 11/10 13:53 Order name: Glucose, Ancillary Testing; Complete Time: 13:59 [facility] 11/10 13:19 Order name: CT Stroke Brain w/o Contrast; Complete Time: 13:59 11/10 13:19 Order name: Stroke CXR 1 View 11/10 13:27 Order name: MRI Stroke Protocol [facility] 11/10 13:19 Order name: EKG; Complete Time: 13:20 11/10 13:19 Order name: Accucheck; Complete Time: 13:29 11/10 13:19 Order name: Cardiac monitoring; Complete Time: 13:29 11/10 13:19 Order name: EKG - Nurse/Tech; Complete Time: 13:43 11/10 13:19 Order name: IV Saline Lock; Complete Time: 14:07 11/10 13:19 Order name: Labs collected and sent; Complete Time: 14: 11/10 13:19 Order name: NPO; Complete Time: 13:29 11/10 13:19 Order name: O2 Per Protocol; Complete Time: 13:29 11/10 13:19 Order name: O2 Sat Monitoring; Complete Time: 13:29 11/10 13:19 Order name: Stroke Swallow Screen; Complete Time: 14:07 11/10 13:49 Order name: Blood Pressure Recheck; Complete Time: 14:06 [facility] EC:43 Rate is 120 beats/min. Rhythm is regular. QRS [place] is Normal. AL interval is normal. [facility] QRS interval is normal. QT interval is normal. No Q waves. T waves are Normal. No ST changes noted. Clinical impression: Sinus tachycardia and No evidence of ischemia. Reviewed by me. Administered Medications: 13:53 Drug: TNK FOR STROKE - Tenecteplase IV 0.25 mg/kg {Co-Signature: vladimir Osuna, mb9 Lily GALLARDO).} Route: IV; Rate: per protocol; Site: left hand; 14:14 Follow up: Response: No adverse reaction; IV Status: Completed infusion mb9 13:55 Drug: Famotidine IVP 20 mg Route: IVP; Site: left hand; mb9 14:14 Follow up: Response: No adverse reaction mb9 13:58 Drug: foLIC Acid IVPB 1 mg Route: IVPB; Site: left hand; mb9 14:15 Follow up: Response: No adverse reaction; IV Status: Completed infusion mb9 14:00 Drug: NS 0.9% IV 1000 ml Route: IV; Rate: 1 bolus; Site: left hand; mb9 14:40 Drug: MethylPrednisoLONE IVP 125 mg Route: IVP; Site: left hand; mb9 Disposition Summary: 11/10/22 13:52 Transfer Ordered Transfer Location: [facility] espinoza Reason: Higher level of care espinoza Condition: Fair espinoza Problem: new espinoza Symptoms: have improved espinoza Accepting Physician: to nicu(11/10/22 15:05) eb Diagnosis - Cerebral infarction, unspecified - acute, left arm and leg weakness espinoza Forms: - Medication Reconciliation Form espinoza - SBAR form espinoza NIH Stroke Scale - NIH Stroke Score Date: 11/10/2022 Time: 13:20 Total Score = 3 10. Dysarthria (speech clarity - read or repeat words) - 0(Normal) 11. Extinction and Inattention (visual/tactile/auditory/spatial/personal) - 0(No abnormality) 1a. Level of Consciousness (LOC) - 0(Alert) 1b. Level of Consciousness (LOC) (Month \T\ Age) - 0(Both) 1c. LOC Commands (Open \T\ Closes Eyes/Care Director Rn) - 0(Both) 2. Best Gaze (Lateral Gaze Paresis) - 0(Normal) 3. Visual Field Loss - 0(No visual loss) 4. Facial Palsy - 0(Normal) 5a. Left Arm: Motor (10-second hold) - 1(Drift) 5b. Right Arm: Motor (10-second hold) - 0(No drift) 6a. Left Leg: Motor (5-second hold - always test supine) - 1(Drift) 6b. Right Leg: Motor (5-second hold - always test supine) - 0(No drift) 7. Limb Ataxia (finger/nose \T\ heel/flores - test with eyes open) - 0(Absent) 8. Sensory Loss (pinprick arms/legs/face) - 1(Mild to moderate loss) 9. Best Language: Aphasia (description/naming/reading) - 0(No aphasia) Initials: mb9 NIH Stroke Scale - NIH Stroke Score Date: 11/10/2022 Time: 13:24 Total Score = 3 10. Dysarthria (speech clarity - read or repeat words) - 0(Normal) 11. Extinction and Inattention (visual/tactile/auditory/spatial/personal) - 0(No abnormality) 1a. Level of Consciousness (LOC) - 0(Alert) 1b. Level of Consciousness (LOC) (Month \T\ Age) - 0(Both) 1c. LOC Commands (Open \T\ Closes Eyes/Care Director Rn) - 0(Both) 2. Best Gaze (Lateral Gaze Paresis) - 0(Normal) 3. Visual Field Loss - 0(No visual loss) 4. Facial Palsy - 0(Normal) 5a. Left Arm: Motor (10-second hold) - 1(Drift) 5b. Right Arm: Motor (10-second hold) - 0(No drift) 6a. Left Leg: Motor (5-second hold - always test supine) - 1(Drift) 6b. Right Leg: Motor (5-second hold - always test supine) - 0(No drift) 7. Limb Ataxia (finger/nose \T\ heel/flores - test with eyes open) - 0(Absent) 8. Sensory Loss (pinprick arms/legs/face) - 1(Mild to moderate loss) 9. Best Language: Aphasia (description/naming/reading) - 0(No aphasia) Initials: mb9 NIH Stroke Scale - NIH Stroke Score Date: 11/10/2022 Time: 13:52 Total Score = 4 10. Dysarthria (speech clarity - read or repeat words) - 0(Normal) 11. Extinction and Inattention (visual/tactile/auditory/spatial/personal) - 0(No abnormality) 1a. Level of Consciousness (LOC) - 0(Alert) 1b. Level of Consciousness (LOC) (Month \T\ Age) - 0(Both) 1c. LOC Commands (Open \T\ Closes Eyes/Care Director Rn) - 0(Both) 2. Best Gaze (Lateral Gaze Paresis) - 0(Normal) 3. Visual Field Loss - 0(No visual loss) 4. Facial Palsy - 0(Normal) 5a. Left Arm: Motor (10-second hold) - 1(Drift) 5b. Right Arm: Motor (10-second hold) - 0(No drift) 6a. Left Leg: Motor (5-second hold - always test supine) - 1(Drift) 6b. Right Leg: Motor (5-second hold - always test supine) - 0(No drift) 7. Limb Ataxia (finger/nose \T\ heel/flores - test with eyes open) - 2(Present in two limbs) 8. Sensory Loss (pinprick arms/legs/face) - 0(Normal) 9. Best Language: Aphasia (description/naming/reading) - 0(No aphasia) Initials: [facility] NIH Stroke Scale - NIH Stroke Score Date: 11/10/2022 Time: 14:08 Total Score = 3 10. Dysarthria (speech clarity - read or repeat words) - 0(Normal) 11. Extinction and Inattention (visual/tactile/auditory/spatial/personal) - 0(No abnormality) 1a. Level of Consciousness (LOC) - 0(Alert) 1b. Level of Consciousness (LOC) (Month \T\ Age) - 0(Both) 1c. LOC Commands (Open \T\ Closes Eyes/Care Director Rn) - 0(Both) 2. Best Gaze (Lateral Gaze Paresis) - 0(Normal) 3. Visual Field Loss - 0(No visual loss) 4. Facial Palsy - 0(Normal) 5a. Left Arm: Motor (10-second hold) - 1(Drift) 5b. Right Arm: Motor (10-second hold) - 0(No drift) 6a. Left Leg: Motor (5-second hold - always test supine) - 1(Drift) 6b. Right Leg: Motor (5-second hold - always test supine) - 0(No drift) 7. Limb Ataxia (finger/nose \T\ heel/flores - test with eyes open) - 0(Absent) 8. Sensory Loss (pinprick arms/legs/face) - 1(Mild to moderate loss) 9. Best Language: Aphasia (description/naming/reading) - 0(No aphasia) Initials: mb9 NIH Stroke Scale - NIH Stroke Score Date: 11/10/2022 Time: 14:23 Total Score = 2 10. Dysarthria (speech clarity - read or repeat words) - 0(Normal) 11. Extinction and Inattention (visual/tactile/auditory/spatial/personal) - 0(No abnormality) 1a. Level of Consciousness (LOC) - 0(Alert) 1b. Level of Consciousness (LOC) (Month \T\ Age) - 0(Both) 1c. LOC Commands (Open \T\ Closes Eyes/Care Director Rn) - 0(Both) 2. Best Gaze (Lateral Gaze Paresis) - 0(Normal) 3. Visual Field Loss - 0(No visual loss) 4. Facial Palsy - 0(Normal) 5a. Left Arm: Motor (10-second hold) - 1(Drift) 5b. Right Arm: Motor (10-second hold) - 0(No drift) 6a. Left Leg: Motor (5-second hold - always test supine) - 1(Drift) 6b. Right Leg: Motor (5-second hold - always test supine) - 0(No drift) 7. Limb Ataxia (finger/nose \T\ heel/flores - test with eyes open) - 0(Absent) 8. Sensory Loss (pinprick arms/legs/face) - 0(Normal) 9. Best Language: Aphasia (description/naming/reading) - 0(No aphasia) Initials: mb9 Signatures: Dispatcher [employer] EDMS Juan Jose Aburto MD MD cha Botello, Elizabeth eb Breneman, Mary Beth, RN RN mb9 Lily Jimenez RN ph Corrections: (The following items were deleted from the chart) 13:47 13:27 Head Angio+CT.RAD.BRZ ordered. EDMS EDMS 13:47 13:27 Neck Angio+CT.RAD.BRZ ordered. EDMS EDMS 15:05 13:52 to [facility] espinoza [place]
--- NOTE | 2022-11-10 13:53 | ER ---
Nurse's Notes [facility] Name: Liu Almonte Age: 57 yrs Sex: Male : 1965 Arrival Date: 11/10/2022 Time: 13:13 Bed 5 Private MD: Diagnosis: Cerebral infarction, unspecified-acute, left arm and leg weakness Presentation: 11/10 13:24 Chief complaint: EMS states: "pt started becoming dizzy and having left sided weakness mb9 and tingling 40 minutes ago. BGL 354. NIH scale on site was 0". Coronavirus screen: Vaccine status: Patient reports being unvaccinated. Ebola Screen: No symptoms or risks identified at this time. The patients blood glucose was checked before arriving to the hospital and was found to be normal. Initial Sepsis Screen: Does the patient meet any 2 criteria? No. Patient's initial sepsis screen is negative. Does the patient have a suspected source of infection? No. Patient's initial sepsis screen is negative. Risk Assessment: Do you want to hurt yourself or someone else? Patient reports no desire to harm self or others. Onset of symptoms was November 10, 2022. 13:24 Method Of Arrival: EMS: [facility] mb9 13:24 Acuity: [place] 2 mb9 Historical: - Allergies: 13:26 Iodine; mb9 - Home Meds: 14:02 dexcom [Active]; Fluconazole Oral [Active]; Insulin Glargine Sub-Q [Active]; mb9 - PMHx: 13:26 Anxiety; Tib/Fib SX Left; Hypertensive disorder; Left Ankle; Hypercholesterolemia; DM; mb9 - PSHx: 13:26 None; mb9 - Immunization history:: Adult Immunizations up to date. - Social history:: Smoking status: Patient reports the use of cigarette tobacco products, denies chronic smoking, but will smoke occasionally. Screenin:20 [facility] ED Fall Risk Assessment (Adult) History of falling in the last 3 months, mb9 including since admission No falls in past 3 months (0 pts) Confusion or Disorientation No (0 pts) Intoxicated or Sedated No (0 pts) Impaired Gait No (0 pts) Mobility Assist Device Used No (0 pt) Altered Elimination No (0 pt) Score/Fall Risk Level 0 - 2 = Low Risk. [facility] ED Fall Risk Assessment (Adult) Score/Fall Risk Level 0 - 2 = Low Risk Oriented to surroundings, Maintained a safe environment, Educated pt \\T\\ family on fall prevention, incl call for assistance when getting out of bed. Abuse screen: Denies threats or abuse. Nutritional screening: No deficits noted. Tuberculosis screening: No symptoms or risk factors identified. 13:20 VAN Screening: Arm Drift: Minor drift. Visual Disturbance: No visual disturbance noted. mb9 Aphasia: No aphasia noted. Neglect: No neglect noted. 13:40 [place] [facility] Protocol Brief Cognitive Screen What is your name? Normal, Where are you mb9 right now? Normal, What year is it? Normal. Oral Mechanism Examination Facial Symmetry: Normal, Motion: Normal, Lip Closure: Normal, Oral Mechanism Result: Normal. 3 oz Water Swallow Challenge: Pt able to drink all water without stopping, coughing, choking or throat clearing: Yes Result: PASS. Assessment: 13:20 Reassessment: Code stroke called ahead. 9 13:24 General: Appears uncomfortable, Behavior is calm, cooperative, appropriate for age. mb9 Pain: Denies pain. 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 Cardiovascular: Heart tones S1 S2 present Rhythm is regular. Respiratory: Airway is patent Respiratory effort is even, unlabored, Respiratory pattern is regular, symmetrical, Breath sounds are clear bilaterally. GI: Abdomen is round non-distended, Bowel sounds present X 4 quads. Derm: Skin is pink, warm \\T\\ dry. Musculoskeletal: Range of motion: intact in all extremities. 13:28 VAN Scoring: Arm Drift: Minor drift mb9 14:24 Reassessment: Gave report to transferring nurse PAULINA Vazquez. 9 14:24 Reassessment: See stroke packet for more information. mb9 Vital Signs: 13:24 BP 200 / 90; Pulse 120; Resp 18; Temp 98.1(O); Pulse Ox 100% on R/A; Weight 104 kg; mb9 Height 5 ft. 4 in. ; Pain 0/10; 13:53 BP 140 / 82; Pulse 115; Resp 20; Pulse Ox 99% on R/A; mb9 14:08 BP 147 / 84; Pulse 112; Resp 18; Pulse Ox 99% on R/A; mb9 13:24 Body Mass Index 39.36 (104.00 kg, 162.56 cm) mb9 13:24 Pain Scale: Adult mb9 Kenney Coma Score: 13:52 Eye Response: spontaneous(4). Motor Response: obeys commands(6). Verbal Response: espinoza oriented(5). Total: 15. NIH Stroke Scale Scores: 13:20 NIHSS Score: 3 mb9 13:24 NIHSS Score: 3 mb9 13:52 NIHSS Score: 4 espinoza 14:08 NIHSS Score: 3 mb9 14:23 NIHSS Score: 2 mb9 ED Course: 13:16 Patient arrived in ED. eb 13:19 Juan Jose Aburto MD is Attending Physician. eb 13:24 Arm band placed on. mb9 13:26 Triage completed. mb9 13:29 Carol Vivar RN is Primary Nurse. mb9 13:29 Placed in gown. Bed in low position. Call light in reach. Side rails up X 1. Client mb9 placed on continuous cardiac and pulse oximetry monitoring. NIBP monitoring applied. ore tester on. 13:32 initiated a transfer with OPAL De from the [facility]. eb 13:35 CT Stroke Brain w/o Contrast In Process Unspecified. EDMS 13:35 connected the neuro [employer] line for [facility] with Dr. Aburto for patient transfer eb consultation. 13:[address] Thompson the child care leader fellow to Dr. King with Dr. Aburto for eb patient transfer consultation. 13:50 administrative approval given by OPAL De/ patient has been accepted to [facility] eb [address] [place] [address] bed 7511/ Dr. Sim King has accepted the patient in transfer/ report to be called to [phone]. 13:56 Stroke CXR 1 View In Process Unspecified. EDMS 14:15 No provider procedures requiring assistance completed. mb9 14:24 Patient transferred, IV remains in place. mb9 Administered Medications: 13:53 Drug: TNK FOR STROKE - Tenecteplase IV 0.25 mg/kg {Co-Signature: ph (Tony, mb9 Lily GALLARDO).} Route: IV; Rate: per protocol; Site: left hand; 14:14 Follow up: Response: No adverse reaction; IV Status: Completed infusion mb9 13:55 Drug: Famotidine IVP 20 mg Route: IVP; Site: left hand; mb9 14:14 Follow up: Response: No adverse reaction mb9 13:58 Drug: foLIC Acid IVPB 1 mg Route: IVPB; Site: left hand; mb9 14:15 Follow up: Response: No adverse reaction; IV Status: Completed infusion mb9 14:00 Drug: NS 0.9% IV 1000 ml Route: IV; Rate: 1 bolus; Site: left hand; mb9 14:40 Drug: MethylPrednisoLONE IVP 125 mg Route: IVP; Site: left hand; mb9 Medication: 14:07 VIS not applicable for this client. mb9 Outcome: 13:52 ER care complete, transfer ordered by MD. doran 14:23 Transferred to [facility], Transfer form completed. X-rays sent w/ mb9 patient. 14:23 Condition: stable 14:23 Instructed on the need for transfer. 15:05 Patient left the ED. NIH Stroke Scale - NIH Stroke Score Date: 11/10/2022 Time: 13:20 Total Score = 3 10. Dysarthria (speech clarity - read or repeat words) - 0(Normal) 11. Extinction and Inattention (visual/tactile/auditory/spatial/personal) - 0(No abnormality) 1a. Level of Consciousness (LOC) - 0(Alert) 1b. Level of Consciousness (LOC) (Month \\T\\ Age) - 0(Both) 1c. LOC Commands (Open \\T\\ Closes Eyes/Coke Drawer Hand) - 0(Both) 2. Best Gaze (Lateral Gaze Paresis) - 0(Normal) 3. Visual Field Loss - 0(No visual loss) 4. Facial Palsy - 0(Normal) 5a. Left Arm: Motor (10-second hold) - 1(Drift) 5b. Right Arm: Motor (10-second hold) - 0(No drift) 6a. Left Leg: Motor (5-second hold - always test supine) - 1(Drift) 6b. Right Leg: Motor (5-second hold - always test supine) - 0(No drift) 7. Limb Ataxia (finger/nose \\T\\ heel/flores - test with eyes open) - 0(Absent) 8. Sensory Loss (pinprick arms/legs/face) - 1(Mild to moderate loss) 9. Best Language: Aphasia (description/naming/reading) - 0(No aphasia) Initials: [facility] NIH Stroke Scale - NIH Stroke Score Date: 11/10/2022 Time: 13:24 Total Score = 3 10. Dysarthria (speech clarity - read or repeat words) - 0(Normal) 11. Extinction and Inattention (visual/tactile/auditory/spatial/personal) - 0(No abnormality) 1a. Level of Consciousness (LOC) - 0(Alert) 1b. Level of Consciousness (LOC) (Month \\T\\ Age) - 0(Both) 1c. LOC Commands (Open \\T\\ Closes Eyes/Coke Drawer Hand) - 0(Both) 2. Best Gaze (Lateral Gaze Paresis) - 0(Normal) 3. Visual Field Loss - 0(No visual loss) 4. Facial Palsy - 0(Normal) 5a. Left Arm: Motor (10-second hold) - 1(Drift) 5b. Right Arm: Motor (10-second hold) - 0(No drift) 6a. Left Leg: Motor (5-second hold - always test supine) - 1(Drift) 6b. Right Leg: Motor (5-second hold - always test supine) - 0(No drift) 7. Limb Ataxia (finger/nose \\T\\ heel/flores - test with eyes open) - 0(Absent) 8. Sensory Loss (pinprick arms/legs/face) - 1(Mild to moderate loss) 9. Best Language: Aphasia (description/naming/reading) - 0(No aphasia) Initials: 9 NIH Stroke Scale - NIH Stroke Score Date: 11/10/2022 Time: 13:52 Total Score = 4 10. Dysarthria (speech clarity - read or repeat words) - 0(Normal) 11. Extinction and Inattention (visual/tactile/auditory/spatial/personal) - 0(No abnormality) 1a. Level of Consciousness (LOC) - 0(Alert) 1b. Level of Consciousness (LOC) (Month \\T\\ Age) - 0(Both) 1c. LOC Commands (Open \\T\\ Closes Eyes/Coke Drawer Hand) - 0(Both) 2. Best Gaze (Lateral Gaze Paresis) - 0(Normal) 3. Visual Field Loss - 0(No visual loss) 4. Facial Palsy - 0(Normal) 5a. Left Arm: Motor (10-second hold) - 1(Drift) 5b. Right Arm: Motor (10-second hold) - 0(No drift) 6a. Left Leg: Motor (5-second hold - always test supine) - 1(Drift) 6b. Right Leg: Motor (5-second hold - always test supine) - 0(No drift) 7. Limb Ataxia (finger/nose \\T\\ heel/flores - test with eyes open) - 2(Present in two limbs) 8. Sensory Loss (pinprick arms/legs/face) - 0(Normal) 9. Best Language: Aphasia (description/naming/reading) - 0(No aphasia) Initials: [facility] NIH Stroke Scale - NIH Stroke Score Date: 11/10/2022 Time: 14:08 Total Score = 3 10. Dysarthria (speech clarity - read or repeat words) - 0(Normal) 11. Extinction and Inattention (visual/tactile/auditory/spatial/personal) - 0(No abnormality) 1a. Level of Consciousness (LOC) - 0(Alert) 1b. Level of Consciousness (LOC) (Month \\T\\ Age) - 0(Both) 1c. LOC Commands (Open \\T\\ Closes Eyes/Coke Drawer Hand) - 0(Both) 2. Best Gaze (Lateral Gaze Paresis) - 0(Normal) 3. Visual Field Loss - 0(No visual loss) 4. Facial Palsy - 0(Normal) 5a. Left Arm: Motor (10-second hold) - 1(Drift) 5b. Right Arm: Motor (10-second hold) - 0(No drift) 6a. Left Leg: Motor (5-second hold - always test supine) - 1(Drift) 6b. Right Leg: Motor (5-second hold - always test supine) - 0(No drift) 7. Limb Ataxia (finger/nose \\T\\ heel/flores - test with eyes open) - 0(Absent) 8. Sensory Loss (pinprick arms/legs/face) - 1(Mild to moderate loss) 9. Best Language: Aphasia (description/naming/reading) - 0(No aphasia) Initials: mb9 NIH Stroke Scale - NIH Stroke Score Date: 11/10/2022 Time: 14:23 Total Score = 2 10. Dysarthria (speech clarity - read or repeat words) - 0(Normal) 11. Extinction and Inattention (visual/tactile/auditory/spatial/personal) - 0(No abnormality) 1a. Level of Consciousness (LOC) - 0(Alert) 1b. Level of Consciousness (LOC) (Month \\T\\ Age) - 0(Both) 1c. LOC Commands (Open \\T\\ Closes Eyes/Coke Drawer Hand) - 0(Both) 2. Best Gaze (Lateral Gaze Paresis) - 0(Normal) 3. Visual Field Loss - 0(No visual loss) 4. Facial Palsy - 0(Normal) 5a. Left Arm: Motor (10-second hold) - 1(Drift) 5b. Right Arm: Motor (10-second hold) - 0(No drift) 6a. Left Leg: Motor (5-second hold - always test supine) - 1(Drift) 6b. Right Leg: Motor (5-second hold - always test supine) - 0(No drift) 7. Limb Ataxia (finger/nose \\T\\ heel/flores - test with eyes open) - 0(Absent) 8. Sensory Loss (pinprick arms/legs/face) - 0(Normal) 9. Best Language: Aphasia (description/naming/reading) - 0(No aphasia) Initials: mb9 Signatures: Dispatcher [employer] EDJuan Jose Hansen MD MD cha Botello, Elizabeth eb Breneman, Mary Beth, RN RN mb9 Lily Jimenez RN ph Corrections: (The following items were deleted from the chart) 13:37 13:24 BP 200 / 90; Resp 18bpm; Pulse Ox 100% RA; Temp 98.1F Oral; 148.78 kg; mb9 Height 5 ft. 4 in.; BMI: 56.3; Pain 0/10, Adult; mb9 13:49 13:24 BP 200 / 90; Pulse 120bpm; Resp 18bpm; Pulse Ox 100% RA; Temp 98.1F Oral; mb9 148.78 kg; Height 5 ft. 4 in.; BMI: 56.3; Pain 0/10, Adult; mb9 14:32 14:05 BP 140 / 82; Pulse 115bpm; Resp 20bpm; Pulse Ox 99% RA; mb9 mb9
[2022-11-10] MEDS ORDERED: TENECTEPLASE 50 MG/10 ML VIAL IV ONE (13:54)
[2022-11-10 14:06] LABS: Potassium 3.5 mEq/L (3.5-5.1); Troponin High Sensitivity 3.5 pg/mL (<58.9)
--- NOTE | 2022-11-10 14:06 | RAD REPORT ---
EXAM DESCRIPTION: RAD - Chest Single View - 11/10/2022 1:55 pm CLINICAL HISTORY: weakness Chest pain. COMPARISON: Chest Pa And Lat (2 Views) dated 02/16/2021 FINDINGS: Portable technique limits examination quality. The lungs are grossly clear. The heart is normal in size. No displaced fractures. IMPRESSION: No acute intrathoracic process suspected.
[2022-11-10] MEDS ORDERED: METHYLPREDNISOLONE 125 MG INJ ONE (14:46)
[2022-11-10 15:14] VITALS: TEMP 98.1
[2022-11-10 15:16] VITALS: O2SAT 99
[2022-11-10 15:18] VITALS: BP 147/84
--- NOTE | 2022-11-13 15:27 | EKG ---
Test Date: 2022-11-10 Test Time: 13:36:27 Beam Builder: DAGOBERTO MEASUREMENT RESULTS: Intervals: Rate: 120 DC: 140 QRSD: 94 QT: 340 QTc: 480 [place]: P: 29 DC: 140 QRS: -16 T: -1 INTERPRETIVE STATEMENTS: Sinus tachycardia Voltage criteria for left ventricular hypertrophy Abnormal ECG No previous ECG available for comparison Electronically Signed On 11-13-22 15:22:22 CDT by Diego Triplett
== END 2022-11-10 15:05 | disposition short-term general hospital (02) ==
LOC: ER 13:13
DX: I63.9 Cerebral infarction, unspecified (principal); I10 Essential (primary) hypertension; R29.703 NIHSS score 3; E11.9 Type 2 diabetes mellitus without complications; Z79.4 Long term (current) use of insulin; F17.210 Nicotine dependence, cigarettes, uncomplicated; Z91.048 Other nonmedicinal substance allergy status
CPT/HCPCS: 96374; 85025; 80048; 36415; 85610; 82565; 82947; 85730; 84484; 86140; 70450; 71045; J3101; J2930; J7030; 93005

== ENCOUNTER 2022-11-21 09:31 | Inpatient (IN) | payer OTHER ==
[2022-11-22 10:10] VITALS: BMI 38.1
[2022-11-22] MEDS ORDERED: BISACODYL E.C. 5 MG TAB PO PRN (10:44)
[2022-11-22] MEDS ORDERED: GLUCAGON 1 MG/VIAL IM PRN (10:45)
[2022-11-22] MEDS ORDERED: D10W 250 ML BAG IV PRN (10:45)
[2022-11-22] MEDS ORDERED: ONDANSETRON 4 MG (ODT) TAB PO PRN (10:50)
[2022-11-22] MEDS ORDERED: POLYETHYL GLY 3350 17 GM/DOSE PO PRN (10:51)
[2022-11-22] MEDS ORDERED: SIMETHICONE 80 MG TAB PO PRN (10:51)
[2022-11-22] MEDS: INSULIN -REGULAR HUMAN 50 UNIT/0.5 ML ML SQ SCH ×3 (12:08→20:28)
[2022-11-22] MEDS: GABAPENTIN 300 MG CAP PO SCH ×2 (14:38→20:28)
[2022-11-22] MEDS: ACETAMINOPHEN 500 MG TAB PO PRN (16:18)
[2022-11-22] MEDS ORDERED: AMLODIPINE 5 MG TAB ONE (19:58)
[2022-11-22] MEDS: DOCUSATE NA/SENNA CONC 1 TAB PO SCH (20:28)
[2022-11-22] MEDS: ATORVASTATIN 80 MG TAB PO SCH (20:28)
[2022-11-22] MEDS: INSULIN GLARGINE 100 UNIT/ML SQ SCH (20:28)
[2022-11-22] MEDS: APIXABAN 2.5 MG TABLET PO SCH (20:28)
[2022-11-22] MEDS: AMLODIPINE 5 MG TAB PO SCH (20:29)
--- NOTE | 2022-11-22 23:01 | HP ---
Date of Admission: 11/22/2022 Time Of Service: 1:00 p.m. Chief Complaint: Stroke. History Of Present Illness: Mr. Almonte is a 57-year-old, right-handed, patient with multip le medical problems including type 2 diabetes mellitus, diabetic neuropathy, chronic kidney disease, obesity, erectile dysfunction, dyslipidemia, hypertension, obstructive sleep apnea, history of alcoho l and cocaine abuse along with tobacco use who came to [facility] on 11/10/2022 with onset o f left upper and lower extremities weakness and numbness. He arrived 45 minutes after onset of sympt oms and after negative head CT scan and all contraindications to TNKs were ruled out, he did receive TNKs and was subsequently transferred to [facility] in [place] for higher level of care. He was admitted there in ICU and evaluated and managed further. MRI showed a right thalam ic stroke and chronic lacunar infarcts. He was treated with dual antiplatelet therapy, high-dose sta tin, and folic acid. His risk factors were modified and were treated actually with medications inclu ding his diabetes mellitus, hypertension, treated for tobacco sensation. He was evaluated by Physica l, Occupational, Speech Therapy and determined that he required inpatient rehabilitation. He has sig nificant weakness in the left upper and lower extremities, some dysarthria, dysphagia, and facial asy mmetry. He did have significant risk of falling and difficulty maintaining and performing his activi ties of daily living. As a result of his comorbid conditions and his need for aggressive inpatient r ehabilitation, he was admitted to the inpatient rehabilitation unit at [facility] for physic al, occupational, and speech therapy. Past Medical History: Diabetes mellitus, rectal dysfunction, dyslipidemia, hypertension, diabetic ne uropathy, obstructive sleep apnea, and multiple strokes in the past. Allergies: CODEINE. Family History: Noncontributory. Social History: Smokes and occasionally alcohol, tobacco, cigarettes, and uses cocaine. Past Surgical History: None. Home Medications: Fluconazole, insulin subcutaneously. Current Medications: While hospitalized, Tylenol 500 mg every 6 hours as needed, Norvasc 5 mg twice daily, Eliquis 2.5 mg twice daily, aspirin 81 mg daily, Lipitor 80 mg at bedtime, Plavix 75 mg daily, Flexeril 10 mg 3 times daily, Prozac 20 mg daily, gabapentin 300 mg 3 times daily, Atarax 25 mg 3 ti mes daily as needed for anxiety, Semglee insulin 15 units subcutaneously twice daily, Cozaar 100 mg d aily, lidocaine patch apply topically daily, Toprol-XL 25 mg daily, Zofran 4 mg every 6 hours as need ed, Protonix 40 mg daily, Senokot S 1 at bedtime, simethicone 80 mg every 6 hours as needed, thiamine 100 mg daily. X-ray/imaging: Brain MRI on 11/12/2022 showed acute infarct in the right thalamus. Old lacunar infa rct in the right striatocapsular region. MRA of the neck showed no significant high-grade stenosis. Laboratory Studies: Complete blood count with differential is completely normal. Coagulation panel, INR 1.04. Chemistry: Sodium 134, potassium 3.5, chloride 107, carbon dioxide 22, BUN 15, creatinin e 0.75, glucose ranged from 211-228. C-reactive protein on the is 3.64. Review of Systems: Mr. Almonte is resting comfortably in bed, waiting for therapy. He has no significant complaints. He denies any fevers or chills. No significant nausea or vomiting. No myalgias, arthralgias. No sign ificant rash, headache, weight change. No active psychiatric issues. No gastrointestinal or genitou rinary issues. He has very poor dentition. Neurological Examination: He is alert, oriented to situation, place, and person. He follows command s appropriately. His cranial nerve examination shows slight decrease of the left nasolabial fold wit h good excursions. Sensation appeared intact, but slightly decreased in the left compared to right f wanda. His strength is slightly weaker on the left compared to right. He has 4/5 proximally and dista lly in the left lower extremity as well, around 4/5 compared to the right 5/5 decreased sensation in the left compared to right upper and lower extremities. Current Level Of Functioning: Today, he ambulated 50 feet, 75 feet twice, 100 feet, 140 feet, and 12 5 feet with minimal assistance using a rolling walker. He ascended and descended 10 steps with minim um assistance using bilateral handrails. He did bathing with standby assistance. Patient was somewh at impulsive with his transfers. He is being evaluated by Speech Therapy. Mr. Almonte is admitted to the inpatient rehabilitation unit with a rehabilitation impairment category is 01 stroke. His rehab ilitation impairment group code is 01.1, left body involvement, right brain. His etiologic diagnosis is acute infarct in the right thalamus. His active comorbidities are alcohol abuse, anxiety, depres eliza, diabetic neuropathy, dyslipidemia, hypertension, obstructive sleep apnea, diabetes mellitus typ e 2. Plan: 1.He will have physical and occupational therapy 3.5 hours 5 of 7 days. Also, speech therapy 0.5 ho urs a day, 5 of 7 days a week. 2.He will continue aggressive management of his hypertension, currently with Norvasc 5 mg twice gabe y. Dyslipidemia will be treated with Lipitor. Stroke risk reduction with aspirin 81 mg. Plavix 75 mg daily for DVT risk reduction with Eliquis 2.5 mg daily; Flexeril for muscle spasms; Prozac for his psychiatric issues of behavioral disturbances, which are very well controlled and not an issue; Atar ax for anxiety; Semglee insulin 15 units twice daily for diabetes. In addition to his Norvasc, the c alcium channel francisco, he is going to continue Toprol 25 mg, beta francisco, and losartan 100 mg twice daily. We will continue thiamine for alcohol withdrawal and Senokot S for constipation. Impact Of Comorbidities: Given the patient's risk of withdrawal, he is on thiamine and will be watch ed for that in terms of heart rate, blood pressure, and any agitation. His risk of bleeding is prese nt since he is on dual platelet antiplatelet therapy and Eliquis, so he will be carefully watched. H emoglobin will be followed. Muscle relaxants also on board. The risk of falling due to weakness. H janiya will be carefully ambulated with gait belt at all times and using a rolling walker. Rehab Specific Plan: 1.Mr. Almonte will have physical and occupational therapy 3 hours a day, 5 of 7 days to improve his u pper and lower body dressing, toileting, transferring, and performing his activities of daily living. He will be evaluated by Speech Therapy and if need be, we will have 0.5 hours of speech therapy сергей ly 5 of 7 days. 2.He will have his comorbid conditions managed by residential and daily physician evaluation and management. 3.The patient has a good understanding of his admission and discharge to the inpatient rehabilitatio n unit and the multidisciplinary approach to his recovery. If need be, he will have additional servi soham from cardiology service, renal service, nutritional service, and diabetic teaching nurse as appro priate. Given his complex medical condition and risk of further complications, rehabilitation cannot be safely or effectively performed at the lower level of care such as residential. Barriers To Discharge: Given his risk of using drugs in the past and alcohol, he will be watched for any withdrawal symptoms. Estimated Length Of Stay: Around 10 days. Disposition: Home with family. Prognosis: Good. Rehabilitation Goals: 1.Become independent with upper and lower body dressing. 2.Independent with transferring and toileting and showering. 3.Being able to ambulate 500 feet with modified independence. 4.Up and down 10 steps with modified independence. 5.Manage all medical conditions appropriately with daily nursing evaluation and, management and phys ician valuation and management. I acknowledge I have personally performed a full physical examination on Mr. Almonte no later than 24 hours after his admission to the inpatient rehabilitation facility and determined that he is able to tolerate the above course of treatment at an intensive level for a reasonable period of time. A deta iled individualized plan of care for him will be completed by hospital day 4 based on the preadmissio n screen, history and physical, and therapy evaluations. LOAN/DRE Voice ID: [id number]
[2022-11-23] MEDS: ACETAMINOPHEN 500 MG TAB PO PRN ×2 (01:04→07:58)
[2022-11-23 02:14] LABS: Specific Gravity 1.006 (1.005-1.030); Urine Bacteria None Seen /HPF (<20); Urine Bilirubin NEGATIVE (Negative); Urine Blood Negative (Negative); Urine Clarity Clear (Clear); Urine Color Colorless (Yellow); Urine Glucose NEGATIVE (Negative); Urine Protein NEGATIVE (Negative); Urine RBC None Seen /HPF (None Seen); Urine Urobilinogen Normal (Normal)
[2022-11-23] MEDS: PANTOPRAZOLE 40MG TABLET PO SCH (05:23)
[2022-11-23] MEDS: METOPROLOL XL 25 MG TAB PO SCH (05:23)
[2022-11-23 05:56] LABS: Hematocrit 41.3 % (39.6-49.0); MCV 86.7 fL (80-100); MPV 8.7 fL (7.6-11.3); RBC Red Blood Cell Count 4.76 M/uL (4.33-5.43)
[2022-11-23 06:15] LABS: Albumin 3.1 g/dL (3.4-5.0); Magnesium 1.7 mg/dL (1.6-2.4); Potassium 3.7 mEq/L (3.5-5.1); Prealbumin 15.9 mg/dL (20-40)
[2022-11-23] MEDS: LIDOCAINE 4% PATCH TOP SCH (06:59)
[2022-11-23] MEDS: INSULIN GLARGINE 100 UNIT/ML SQ SCH ×2 (07:56→20:37)
[2022-11-23] MEDS: INSULIN -REGULAR HUMAN 50 UNIT/0.5 ML ML SQ SCH ×4 (07:56→20:37)
[2022-11-23] MEDS: GABAPENTIN 300 MG CAP PO SCH ×3 (07:57→20:37)
[2022-11-23] MEDS: ASPIRIN 81 MG CHEWABLE TABLET PO SCH (07:58)
[2022-11-23] MEDS: THIAMINE HCL 100 MG TABLET PO SCH (07:58)
[2022-11-23] MEDS: AMLODIPINE 5 MG TAB PO SCH ×2 (07:58→20:38)
[2022-11-23] MEDS: CLOPIDOGREL 75 MG TABLET PO SCH (07:58)
[2022-11-23] MEDS: APIXABAN 2.5 MG TABLET PO SCH ×2 (07:58→20:37)
[2022-11-23] MEDS ORDERED: LOSARTAN POTASSIUM 50 MG TABLET PO SCH (08:00)
[2022-11-23] MEDS ORDERED: AMLODIPINE 10 MG TAB PO SCH (08:00)
[2022-11-23] MEDS: FLUOXETINE 20 MG CAP PO SCH (09:13)
[2022-11-23] MEDS: METFORMIN HCL 500 MG TAB PO SCH (16:56)
[2022-11-23] MEDS: ATORVASTATIN 80 MG TAB PO SCH (20:37)
[2022-11-23] MEDS: MAGNESIUM OXIDE 400 MG TAB PO SCH (20:37)
[2022-11-23] MEDS: DOCUSATE NA/SENNA CONC 1 TAB PO SCH (20:37)
[2022-11-23] MEDS ORDERED: BACLOFEN 10 MG TAB PO SCH (21:00)
--- NOTE | 2022-11-23 21:55 | PN ---
Date of Progress Note: 11/23/2022 Time Of Service: 1:00 p.m. Subjective: Mr. Almonte is doing well. He is happy with his therapy so far. Reports improving signi ficantly in terms of his stroke deficits, which affected the left side. He has no new complaints. Review of Systems: No fevers, chills, nausea, vomiting. No significant myalgias, arthralgias, rash, headache, weight ch teofilo. Physical Examination: Vital Signs: Blood pressure 128/76, pulse 83, respiratory rate 16, temperature 97.1, oxygen saturati on 96%. Weight 222 pounds, height 5 feet 4 inches, BMI 38.1. General: Mr. Almonte is in his chair, waiting for the next therapy session to begin. HEENT: As noted, he has poor dentition. He is otherwise normocephalic, atraumatic. Sclerae anicter ic. Oropharynx moist. Neck: Supple. Chest: Clear. Heart: Regular. Extremities: Show no significant edema, cyanosis. His strength is actually improving very well in t erms of dexterity as well. On the left side, he is able to touch the thumb to each finger very effec tively without any loss of control and is regaining strength in the lower extremity very well. Laboratory Studies: White blood cell count 11, hemoglobin 14.2, platelets 221. Sodium 135, potassiu m 3.7, chloride 108, carbon dioxide 26, BUN 4.7, glucose ranged from 192 to 256. It should be noted that the patient has just restarted on his metformin 500 mg twice daily along with his insulin regime n. X-ray/imaging: None. Medications: Tylenol 500 mg every 6 hours as needed, Norvasc 5 mg twice daily, Eliquis 2.5 mg twice daily, aspirin 81 mg daily, Lipitor 80 mg at bedtime, baclofen 5 mg at bedtime. He did complain of s ome muscle spasms and atropine was added for that. In addition, Plavix 75 mg daily and he has had al so magnesium added to his regimen, which is for some muscle spasms, gabapentin 300 mg 3 times daily, Prozac 20 mg daily, Atarax 25 mg daily, Semglee insulin 15 units twice daily, Cozaar 100 mg daily, me tformin 500 mg twice daily, Toprol-XL 25 mg daily, Zofran 4 mg every 4 hours as needed, Senokot 1 at bedtime, simethicone 80 mg every 6 hours as needed, thiamine 100 mg daily. Current Functional Status: Currently, he performed sit to stand, stand and pivot transfers with cont act guard assistance using a rolling walker. He self propelled a wheelchair with bilateral lower ext remities 40 feet and while the physical therapist was in tow another 250 feet. He ambulated 200 feet , 150 feet, 175 feet with contact guard assistance using a rolling walker. He is not receiving speec h therapy as he has graduated out of bed very early. Progress Towards Rehabilitation Goals: Mr. Almonte is making excellent progress towards his goals of becoming independent with upper and lower body dressing, toileting, transferring, ambulating, and per forming activities of daily living as well as dressing upper and lower body. Assessment: Mr. Almonte is a 57-year-old patient in the rehabilitation unit with a right hemispheric stroke and left-sided weakness from which he is recovering very well. He has a history of alcohol ab use, but has not had any withdrawal symptoms. Also, tobacco use and has not had tobacco withdrawal. He has diabetes mellitus with uncontrolled blood sugars and metformin is restarted, Semglee insulin may be adjusted as appropriate. He has obstructive sleep apnea, hypertension, dyslipidemia, diabetic neuropathy. Plan: 1.Continue with physical and occupational therapy 3 hours a day, 5 of 7 days. 2.Continue with management of his hypertension, diabetes, dyslipidemia. His stroke risk reduction w ith aspirin, Plavix, DVT risk reduction with Eliquis 2.5 mg twice daily. He is on Flexeril for muscl e spasms, baclofen to be added as needed and all of the medications will be continued such as for con stipation and thiamine for alcohol withdrawal. Comorbids That Continue To Impact Rehabilitation Process: At this point, his comorbidities are stabl y managed and do not negatively impact his rehabilitation process. LB/MODL Voice ID: [id number] Report ID: [id number]
[2022-11-24] MEDS: PANTOPRAZOLE 40MG TABLET PO SCH (05:31)
[2022-11-24] MEDS: METOPROLOL XL 25 MG TAB PO SCH (05:31)
[2022-11-24] MEDS: ACETAMINOPHEN 500 MG TAB PO PRN ×2 (06:04→19:09)
[2022-11-24] MEDS: LOSARTAN POTASSIUM 50 MG TABLET PO SCH ×2 (08:14→19:06)
[2022-11-24] MEDS: FLUOXETINE 20 MG CAP PO SCH (08:15)
[2022-11-24] MEDS: AMLODIPINE 5 MG TAB PO SCH ×2 (08:15→19:08)
[2022-11-24] MEDS: MAGNESIUM OXIDE 400 MG TAB PO SCH ×2 (08:15→19:07)
[2022-11-24] MEDS: METFORMIN HCL 500 MG TAB PO SCH ×2 (08:15→16:40)
[2022-11-24] MEDS: THIAMINE HCL 100 MG TABLET PO SCH (08:16)
[2022-11-24] MEDS: ASPIRIN 81 MG CHEWABLE TABLET PO SCH (08:16)
[2022-11-24] MEDS: GABAPENTIN 300 MG CAP PO SCH ×2 (08:16→19:07)
[2022-11-24] MEDS: CLOPIDOGREL 75 MG TABLET PO SCH (08:16)
[2022-11-24] MEDS: INSULIN -REGULAR HUMAN 50 UNIT/0.5 ML ML SQ SCH ×4 (08:16→20:11)
[2022-11-24] MEDS: APIXABAN 2.5 MG TABLET PO SCH ×2 (08:16→19:06)
[2022-11-24] MEDS: INSULIN GLARGINE 100 UNIT/ML SQ SCH ×2 (08:17→20:12)
[2022-11-24] MEDS: LIDOCAINE 4% PATCH TOP SCH (08:20)
--- NOTE | 2022-11-24 09:00 | P.RH.PN ---
Estimated Length of Stay: 11 Expected Discharge Date: 11/30/22 Discharge Disposition Plan: Home Family Support: Yes Residential Goal: Mobility, Transfers, Self Care Vital Signs: Last Vital Signs Temp 97.0 F 11/24/22 07:13 Pulse 83 11/24/22 08:15 Resp 18 11/24/22 07:13 BP 131/75 11/24/22 08:15 Pulse Ox 97 11/24/22 07:13 Laboratory: Laboratory Last Values WBC 11.00 thou/uL (4.3-10.9) H 11/23/22 05:11 RBC 4.76 M/uL (4.33-5.43) 11/23/22 05:11 Hgb 14.2 g/dL (13.6-17.9) 11/23/22 05:11 Hct 41.3 % (39.6-49.0) 11/23/22 05:11 MCV 86.7 fL (80-100) 11/23/22 05:11 MCH 29.9 pg (27.0-35.0) 11/23/22 05:11 MCHC 34.5 g/dL (32.0-36.0) 11/23/22 05:11 RDW 13.3 % (12.1-15.2) 11/23/22 05:11 Plt Count 221 thou/uL (152-406) 11/23/22 05:11 MPV 8.7 fL (7.6-11.3) 11/23/22 05:11 Neutrophils % 63.5 % (41.7-73.7) 11/23/22 05:11 Lymphocytes % 27.0 % (15.3-44.8) 11/23/22 05:11 Monocytes % 7.2 % (3.3-12.3) 11/23/22 05:11 Eosinophils % 1.6 % (0-4.4) 11/23/22 05:11 Basophils % 0.7 % (0-1.3) 11/23/22 05:11 Absolute Neutrophils 7.0 K/uL (1.8-8.0) 11/23/22 05:11 Absolute Lymphocytes 3.0 K/uL (0.7-4.9) 11/23/22 05:11 Absolute Monocytes 0.8 K/uL (0.1-1.3) 11/23/22 05:11 Absolute Eosinophils 0.2 K/uL (0-0.5) 11/23/22 05:11 Absolute Basophils 0.1 K/uL (0-0.5) 11/23/22 05:11 Sodium 135 mEq/L (136-145) L 11/23/22 05:11 Potassium 3.7 mEq/L (3.5-5.1) 11/23/22 05:11 Chloride 108 mEq/L (98-107) H 11/23/22 05:11 Carbon Dioxide 26 mEq/L (21-32) 11/23/22 05:11 Anion Gap 4.7 mEq/L (5.0-15.0) L 11/23/22 05:11 BUN 13 mg/dL (7-18) 11/23/22 05:11 Creatinine 0.51 mg/dL (0.70-1.30) L 11/23/22 05:11 Est GFR (CKD-EPI) 118 ml/min (=/>90) 11/23/22 05:11 Glucose 192 mg/dL (74-106) H 11/23/22 05:11 POC Glucose 221 mg/dL (65-120) H 11/24/22 06:58 Calcium 8.7 mg/dL (8.5-10.1) 11/23/22 05:11 Magnesium 1.7 mg/dL (1.6-2.4) 11/23/22 05:11 Albumin 3.1 g/dL (3.4-5.0) L 11/23/22 05:11 Prealbumin 15.9 mg/dL (20-40) L 11/23/22 05:11 Urine Color Cancelled 11/23/22 01:18 Urine Clarity Cancelled 11/23/22 01:18 Urine pH Cancelled 11/23/22 01:18 Ur Specific Omega Cancelled 11/23/22 01:18 Glucose (UA)(Auto) Cancelled 11/23/22 01:18 Urine Ketones Cancelled 11/23/22 01:18 Urine Blood Cancelled 11/23/22 01:18 Urine Nitrite Cancelled 11/23/22 01:18 Urine Bilirubin Cancelled 11/23/22 01:18 Urine Urobilinogen Cancelled 11/23/22 01:18 Ur Leukocyte Esterase Cancelled 11/23/22 01:18 Urine RBC Cancelled 11/23/22 01:18 Urine Red Cell Clumps Cancelled 11/23/22 01:18 Urine WBC Cancelled 11/23/22 01:18 Urine WBC Clumps Cancelled 11/23/22 01:18 Ur Squamous Epith Cells Cancelled 11/23/22 01:18 U Non-Squamous Epi Cells Cancelled 11/23/22 01:18 Ur Transition Epith Cell Cancelled 11/23/22 01:18 Ur Renal Epithelial Cell Cancelled 11/23/22 01:18 Calcium Carbonate Cryst Cancelled 11/23/22 01:18 Calcium Oxalate Crystal Cancelled 11/23/22 01:18 Leucine Crystals Cancelled 11/23/22 01:18 Cystine Crystals Cancelled 11/23/22 01:18 Uric Acid Crystals Cancelled 11/23/22 01:18 Triple Phos Crystals Cancelled 11/23/22 01:18 Tyrosine Crystals Cancelled 11/23/22 01:18 Unidentified Crystals Cancelled 11/23/22 01:18 Amorphous Crystals Cancelled 11/23/22 01:18 Urine Bacteria Cancelled 11/23/22 01:18 Hyaline Casts Cancelled 11/23/22 01:18 Granular Casts Cancelled 11/23/22 01:18 Waxy Casts Cancelled 11/23/22 01:18 RBC Casts Cancelled 11/23/22 01:18 WBC Casts Cancelled 11/23/22 01:18 Urine Mucus Cancelled 11/23/22 01:18 Urine Trichomonas Cancelled 11/23/22 01:18 Ur Yeast w Hyphae Cancelled 11/23/22 01:18 Urine Yeast (Budding) Cancelled 11/23/22 01:18 Urine Sperm Cancelled 11/23/22 01:18 Ur Oval Fat Bodies Cancelled 11/23/22 01:18 Urine Culture Reflexed Cancelled 11/23/22 01:18 Urine Total Protein Cancelled 11/23/22 01:18 Urine Ascorbic Acid Cancelled 11/23/22 01:18 Urine Fat Cancelled 11/23/22 01:18 Weight: 222 lb 1.6 oz Wound Present: No Closed Surgical Incision Present: No Negative Pressure Wound Therapy Present: No Physician Update: He is making good progress with all therapy. He had cramping in his upper and lower extremity addressed with magnesium and baclofen 5 mg daily. Labs reviewed and are stable. Mildly low prealbumin with add glucerna. Walking 250' with SBA, transfering SBA, up and down 15 steps. His left hand in mildly incoordinated. He will work on playing his musical instruments. Summary: Patient's care plan and terminal make up operator goals have been reviewed and revised as necessary. Please see the Rehabilitation Signature page for all necessary signatures.
[2022-11-24] MEDS: GLUCERNA SHAKE 237 ML CAN PO SCH (19:07)
[2022-11-24] MEDS: ATORVASTATIN 80 MG TAB PO SCH (19:09)
[2022-11-24] MEDS: BACLOFEN 10 MG TAB PO SCH (19:09)
[2022-11-24] MEDS: DOCUSATE NA/SENNA CONC 1 TAB PO SCH (19:09)
[2022-11-25] MEDS: PANTOPRAZOLE 40MG TABLET PO SCH (05:23)
[2022-11-25] MEDS: METOPROLOL XL 25 MG TAB PO SCH (05:24)
[2022-11-25] MEDS: GLUCERNA SHAKE 237 ML CAN PO SCH ×2 (08:00→20:00)
[2022-11-25] MEDS: FLUOXETINE 20 MG CAP PO SCH (08:18)
[2022-11-25] MEDS: CLOPIDOGREL 75 MG TABLET PO SCH (08:18)
[2022-11-25] MEDS: APIXABAN 2.5 MG TABLET PO SCH ×2 (08:18→20:15)
[2022-11-25] MEDS: METFORMIN HCL 500 MG TAB PO SCH ×2 (08:18→17:10)
[2022-11-25] MEDS: ASPIRIN 81 MG CHEWABLE TABLET PO SCH (08:18)
[2022-11-25] MEDS: GABAPENTIN 300 MG CAP PO SCH ×2 (08:18→20:18)
[2022-11-25] MEDS: THIAMINE HCL 100 MG TABLET PO SCH (08:19)
[2022-11-25] MEDS: AMLODIPINE 5 MG TAB PO SCH ×2 (08:19→20:15)
[2022-11-25] MEDS: INSULIN GLARGINE 100 UNIT/ML SQ SCH ×2 (08:21→20:16)
[2022-11-25] MEDS: INSULIN -REGULAR HUMAN 50 UNIT/0.5 ML ML SQ SCH ×4 (08:21→20:17)
[2022-11-25] MEDS: LOSARTAN POTASSIUM 50 MG TABLET PO SCH ×2 (08:25→20:15)
[2022-11-25] MEDS: MAGNESIUM OXIDE 400 MG TAB PO SCH ×2 (08:31→20:14)
[2022-11-25] MEDS: ACETAMINOPHEN 500 MG TAB PO PRN ×2 (08:31→17:13)
[2022-11-25] MEDS ORDERED: LOPERAMIDE HCL 2 MG CAPSULE PO PRN (11:10)
[2022-11-25 14:43] LABS: Absolute Lymphocytes (CBC) 2.9 K/uL (0.7-4.9); Hematocrit 42.2 % (39.6-49.0); Lymphocytes % 24.4 % (15.3-44.8); MCV 87.1 fL (80-100); MPV 8.4 fL (7.6-11.3); RBC Red Blood Cell Count 4.84 M/uL (4.33-5.43)
[2022-11-25] MEDS: ATORVASTATIN 80 MG TAB PO SCH (20:15)
[2022-11-25] MEDS: BACLOFEN 10 MG TAB PO SCH (20:16)
[2022-11-25] MEDS: DOCUSATE NA/SENNA CONC 1 TAB PO SCH (20:17)
[2022-11-26] MEDS: METOPROLOL XL 25 MG TAB PO SCH (05:08)
[2022-11-26] MEDS: PANTOPRAZOLE 40MG TABLET PO SCH (05:20)
[2022-11-26] MEDS: ACETAMINOPHEN 500 MG TAB PO PRN ×2 (07:01→11:56)
[2022-11-26] MEDS: INSULIN -REGULAR HUMAN 50 UNIT/0.5 ML ML SQ SCH ×4 (07:30→19:38)
[2022-11-26] MEDS: MAGNESIUM OXIDE 400 MG TAB PO SCH ×2 (07:38→19:38)
[2022-11-26] MEDS: GLUCERNA SHAKE 237 ML CAN PO SCH ×2 (07:38→19:40)
[2022-11-26] MEDS: LOSARTAN POTASSIUM 50 MG TABLET PO SCH ×2 (07:39→19:39)
[2022-11-26] MEDS: INSULIN GLARGINE 100 UNIT/ML SQ SCH ×2 (07:40→19:37)
[2022-11-26] MEDS: GABAPENTIN 300 MG CAP PO SCH ×3 (07:40→19:42)
[2022-11-26] MEDS: FLUOXETINE 20 MG CAP PO SCH ×2 (07:40→19:42)
[2022-11-26] MEDS: APIXABAN 2.5 MG TABLET PO SCH ×2 (07:40→19:40)
[2022-11-26] MEDS: THIAMINE HCL 100 MG TABLET PO SCH (07:41)
[2022-11-26] MEDS: ASPIRIN 81 MG CHEWABLE TABLET PO SCH (07:41)
[2022-11-26] MEDS: CLOPIDOGREL 75 MG TABLET PO SCH (07:41)
[2022-11-26] MEDS: METFORMIN HCL 500 MG TAB PO SCH ×2 (07:41→16:40)
[2022-11-26] MEDS: AMLODIPINE 5 MG TAB PO SCH ×2 (09:48→19:38)
[2022-11-26] MEDS: hydrOXYzine HCL 25 MG TAB PO PRN ×2 (11:56→19:39)
--- NOTE | 2022-11-26 12:07 | RAD REPORT ---
EXAM DESCRIPTION: CT - Head Brain Wo Cont - 11/26/2022 11:37 am CLINICAL HISTORY: Sudden onset numbness to left face, arm, and leg. To r/o stroke COMPARISON: Ct Stroke Brain Wo Cont dated 11/10/2022; Head Brain Wo Cont dated 07/01/2021 TECHNIQUE: Noncontrast head CT images ad were obtained without IV contrast. Multiplanar reformats we re generated and reviewed. All CT scans are performed using dose optimization technique as appropriate and may include automated exposure control or mA/KV adjustment according to patient size. FINDINGS: No intracranial hemorrhage, mass, or edema. Midline structures are unremarkable. Normal ventricular caliber for age. Areas of hypoattenuation in the right centrum semiovale and right dorsal lateral thalamus again seen, although the right thalamic abnormalities more conspicuous than on prior exam. Chen-white matter dif ferentiation is otherwise preserved, without evidence of acute infarct. No abnormal extra-axial fluid collections. Mastoid air cells and visualized portions of the paranasal sinuses are clear. No acute bony findings. IMPRESSION: Progressively more conspicuous right thalamic hypodensity, raising concern for new, wors ened, or evolving acute to subacute ischemia. The findings were communicated to Reggie Ryder on 11/26/2022 at 12:03 hours.
[2022-11-26] MEDS ORDERED: ONDANSETRON 4 MG (ODT) TAB PO PRN (12:27)
[2022-11-26] MEDS: BACLOFEN 10 MG TAB PO SCH (19:39)
[2022-11-26] MEDS: ATORVASTATIN 80 MG TAB PO SCH (19:40)
[2022-11-26] MEDS: DOCUSATE NA/SENNA CONC 1 TAB PO SCH (19:43)
[2022-11-27] MEDS: ACETAMINOPHEN 500 MG TAB PO PRN ×3 (02:46→19:38)
[2022-11-27] MEDS: METOPROLOL XL 25 MG TAB PO SCH (05:10)
[2022-11-27] MEDS: PANTOPRAZOLE 40MG TABLET PO SCH (05:30)
--- NOTE | 2022-11-27 07:23 | RAD REPORT ---
EXAM DESCRIPTION: RAD - Shoulder Left 2 View - 11/27/2022 6:31 am CLINICAL HISTORY: Left shoulder pain FINDINGS: No fracture or dislocation is seen. Mild osteoarthritis AC joint.
[2022-11-27] MEDS: INSULIN -REGULAR HUMAN 50 UNIT/0.5 ML ML SQ SCH ×4 (07:30→19:45)
[2022-11-27] MEDS: hydrOXYzine HCL 25 MG TAB PO PRN ×3 (07:37→19:37)
[2022-11-27] MEDS: LOSARTAN POTASSIUM 50 MG TABLET PO SCH ×2 (07:38→19:38)
[2022-11-27] MEDS: INSULIN GLARGINE 100 UNIT/ML SQ SCH ×2 (07:38→19:46)
[2022-11-27] MEDS: FLUOXETINE 20 MG CAP PO SCH ×2 (07:39→19:37)
[2022-11-27] MEDS: GABAPENTIN 300 MG CAP PO SCH ×3 (07:39→19:38)
[2022-11-27] MEDS: METFORMIN HCL 500 MG TAB PO SCH ×2 (07:39→17:02)
[2022-11-27] MEDS: MAGNESIUM OXIDE 400 MG TAB PO SCH ×2 (07:39→19:38)
[2022-11-27] MEDS: ASPIRIN 81 MG CHEWABLE TABLET PO SCH (07:40)
[2022-11-27] MEDS: GLUCERNA SHAKE 237 ML CAN PO SCH ×2 (07:40→19:39)
[2022-11-27] MEDS: THIAMINE HCL 100 MG TABLET PO SCH (07:40)
[2022-11-27] MEDS: CLOPIDOGREL 75 MG TABLET PO SCH (07:40)
[2022-11-27] MEDS: APIXABAN 2.5 MG TABLET PO SCH ×2 (07:40→19:38)
[2022-11-27] MEDS: AMLODIPINE 5 MG TAB PO SCH ×2 (09:56→19:38)
[2022-11-27] MEDS: CYCLOBENZAPRINE 10 MG TAB PO PRN ×2 (11:56→17:02)
[2022-11-27] MEDS: ATORVASTATIN 80 MG TAB PO SCH (19:37)
[2022-11-27] MEDS: DOCUSATE NA/SENNA CONC 1 TAB PO SCH (19:38)
[2022-11-27] MEDS: BACLOFEN 10 MG TAB PO SCH (19:40)
--- NOTE | 2022-11-28 00:52 | PN ---
Date of Progress Note: 11/27/2022 Time Of Service: 1:30 p.m. Subjective: Mr. Almonte is doing well. He is actually improving the worsening left-sided face, arm, and leg numbness and weakness, which did worsen over the weekend and the repeat CT scan showed some e xtension of the original stroke in the thalamus on the right. Other than that, he denies any new com plaints. Review of Systems: Again some pain, tingling and numbness in the left upper and lower extremities related to his stroke. Otherwise, no fevers, chills, nausea, vomiting, myalgias, or arthralgias. Physical Examination: Vital Signs: Blood pressure 132/83, pulse 78, temperature 97.0, and oxygen saturation 95%. General: Mr. Almonte is sitting in a chair besides bed waiting for the next therapy session to begin. Neurologic: In terms of his neurological deficits, significant sensory deficits are noted in the lef t upper and lower extremities compared to the right upper and lower extremities. Otherwise, good str ength in upper and lower extremities and no new or additional findings on exam. Laboratory Studies: Blood sugars are better controlled and ranged from 113 to 157, although there is a max of 251 earlier in the day. X-ray/imaging: The head CT scan on 11/26/2022 showed progressive more conspicuous right thalamic hyp odensity, raising concern for new worsening or evolving acute to subacute ischemia, and that was disc ussed with the patient and the radiologists. He had a shoulder x-ray done today on the left shoulder , 2 views that showed no dislocation or fracture. There was mild osteoarthritis. Current Functional Status: Today Mr. Almonte ambulated 150 feet, another 250 feet twice, and 400 feet independently using a rolling walker. He ascended and descended 15 steps with bilateral handrails i ndependently. With his occupational therapy, he performed independent bathing of the upper and lower body and dressing was independent to the upper and lower body without the use of an assistive device . He is not receiving speech therapy. He is doing well from that standpoint. Progress Towards Rehabilitation Goals: Mr. Almonte is making excellent progress and has reached his r ehabilitation goals and is ready for his discharge. Assessment: Mr. Almonte is a 57-year-old patient in the rehabilitation unit with a right thalamic str rocío producing left-sided weakness and numbness. The recent CT scan suggests that the patient's sympt oms have evolved and may be extending, but his clinical symptoms are much better. The change perhaps may be related to his blood sugars being poorly controlled. He does have a history of tobacco use a nd alcohol use. He has hypertension along with dyslipidemia and diabetic neuropathy. Plan: 1.For now, continue with physical and occupational therapy for 3 hours, 5 of 7 days. 2.His multiple comorbid condition medications are continued. 3.He will be discharged home tomorrow and continue with outpatient physical therapy and occupational therapy. Comorbids That Continue To Impact Rehabilitation Process: At this point, his comorbids do not negati vely impact his rehabilitation. He is ready for discharge. MICAELA Voice ID: [id number] Report ID: [id number]
[2022-11-28] MEDS: METOPROLOL XL 25 MG TAB PO SCH (05:01)
[2022-11-28] MEDS: PANTOPRAZOLE 40MG TABLET PO SCH (06:59)
[2022-11-28] MEDS: INSULIN -REGULAR HUMAN 50 UNIT/0.5 ML ML SQ SCH ×2 (07:30→11:30)
[2022-11-28] MEDS: CYCLOBENZAPRINE 10 MG TAB PO PRN ×2 (07:32→13:30)
[2022-11-28] MEDS: hydrOXYzine HCL 25 MG TAB PO PRN ×2 (07:32→13:30)
[2022-11-28] MEDS: FLUOXETINE 20 MG CAP PO SCH (07:34)
[2022-11-28] MEDS: INSULIN GLARGINE 100 UNIT/ML SQ SCH (07:34)
[2022-11-28] MEDS: LOSARTAN POTASSIUM 50 MG TABLET PO SCH (07:34)
[2022-11-28] MEDS: GABAPENTIN 300 MG CAP PO SCH ×2 (07:35→13:30)
[2022-11-28] MEDS: MAGNESIUM OXIDE 400 MG TAB PO SCH (07:35)
[2022-11-28] MEDS: GLUCERNA SHAKE 237 ML CAN PO SCH (07:35)
[2022-11-28] MEDS: APIXABAN 2.5 MG TABLET PO SCH (07:35)
[2022-11-28] MEDS: METFORMIN HCL 500 MG TAB PO SCH (07:36)
[2022-11-28] MEDS: ASPIRIN 81 MG CHEWABLE TABLET PO SCH (07:36)
[2022-11-28] MEDS: THIAMINE HCL 100 MG TABLET PO SCH (07:36)
[2022-11-28] MEDS: CLOPIDOGREL 75 MG TABLET PO SCH (07:36)
[2022-11-28 08:26] VITALS: TEMP 97
[2022-11-28] MEDS: AMLODIPINE 5 MG TAB PO SCH (09:58)
[2022-11-28 09:59] VITALS: BP 140/86
== END 2022-11-28 16:15 | disposition home or self-care (01) | DRG 57 ==
LOC: 5TH 11-22 09:35
PROVIDERS: ADMIT Psychiatry & Neurology Neurology with Special Qualifications in Child Neurology; ATTEND Psychiatry & Neurology Neurology with Special Qualifications in Child Neurology
DX: I69.354 Hemiplegia and hemiparesis following cerebral infarction affecting left non-dominant side (principal); I69.322 Dysarthria following cerebral infarction; I69.391 Dysphagia following cerebral infarction; R13.10 Dysphagia, unspecified; M62.838 Other muscle spasm; I10 Essential (primary) hypertension; E78.5 Hyperlipidemia, unspecified; E11.40 Type 2 diabetes mellitus with diabetic neuropathy, unspecified; G47.33 Obstructive sleep apnea (adult) (pediatric); F17.210 Nicotine dependence, cigarettes, uncomplicated; F10.10 Alcohol abuse, uncomplicated; F41.9 Anxiety disorder, unspecified; F32.A Depression, unspecified; M19.90 Unspecified osteoarthritis, unspecified site
CPT/HCPCS: 36415; 70450; 80048; 81001; 82040; 82947; 83735; 84134; 85025; 87086; 87088; 94010; 97110; 97112; 97116; 97161; 97165; 97530; 97533; J1815; J2001; Q0162

== ENCOUNTER 2023-01-31 06:30 | Day surgery (SDC) | payer OTHER ==
[2023-01-31] MEDS ORDERED: NA CHLORIDE 0.9% 1,000 ML ONE (07:03)
[2023-01-31] MEDS ORDERED: propofoL 200 MG/20 ML VIAL IV ONE ×2 (07:40→08:08)
[2023-01-31] MEDS ORDERED: LIDOCAINE 1% MPF 5 ML VIAL ONE (07:41)
[2023-01-31 10:01] VITALS: BP 104/70; TEMP 97.8; O2SAT 98
== END 2023-01-31 08:48 | disposition home or self-care (01) ==
LOC: OR 06:30
PROVIDERS: ATTEND Surgery
PROC: 0DJD8ZZ Inspection of Lower Intestinal Tract, Via Natural or Artificial Opening Endoscopic (ICD-10-PCS; principal; 2023-01-31 07:30)
DX: Z12.11 Encounter for screening for malignant neoplasm of colon (principal); R10.9 Unspecified abdominal pain; K64.4 Residual hemorrhoidal skin tags; K64.8 Other hemorrhoids; K57.30 Diverticulosis of large intestine without perforation or abscess without bleeding; K63.89 Other specified diseases of intestine
CPT/HCPCS: 82947 ×2; 45378; J2704 ×2; J2001; J7030

== ENCOUNTER 2023-03-27 10:09 | Inpatient (IN) | payer OTHER ==
[2023-03-27 10:48] LABS: Absolute Lymphocytes (CBC) 2.2 K/uL (0.7-4.9); Hematocrit 40.5 % (39.6-49.0); Lymphocytes % 20.5 % (15.3-44.8); MCV 88.2 fL (80-100); MPV 7.4 fL (7.6-11.3); Platelets 290 thou/uL (152-406)
[2023-03-27 11:01] LABS: Albumin 3.5 g/dL (3.4-5.0); Bilirubin Total 0.5 mg/dL (0.2-1.0); Magnesium 1.6 mg/dL (1.6-2.4); Potassium 4.3 mEq/L (3.5-5.1); Protein, Total 7.5 g/dL (6.4-8.2); Troponin High Sensitivity 4.9 pg/mL (<58.9)
--- NOTE | 2023-03-27 11:40 | RAD REPORT ---
EXAM DESCRIPTION: CT - Spine Lumbar Wo Con - 03/27/2023 10:54 am CLINICAL HISTORY: trauma COMPARISON: No comparisons TECHNIQUE: Axial noncontrast CT imaging of the lumbar spine was performed with coronal and sagittal re-formatted images. All CT scans are performed using dose optimization technique as appropriate and may include automated exposure control or mA/KV adjustment according to patient size. FINDINGS: No acute lumbar spine fracture seen. No aggressive marrow pattern or malalignment. Paraspinal tissues are normal in thickness. No paraspinal abscess or hematoma seen. Intervertebral disc disease assessment is inherently limited by CT. Within these limitations, multipl e disc bulges are seen spanning L2-3 through L5-S1. Asymmetric disc height loss on the right at L5-S1 with endplate remodeling and disc vacuum phenomenon. Findings contribute to left more than right lat eral recess narrowing at L5-S1, with overall mild canal stenosis. An extruded, cranially migrated dis c fragment containing locules of gas is present on the right, may contribute to lateral recess narrow ing above the level of the L5-S1 disc. Facet arthropathy and ligamentum flavum buckling contribute to [id number] central canal stenosis at L4-5. Variable degrees of neural foraminal narrowing, up to moderate to severe bilaterally at L5-S1. Incidentally noted nonobstructing right renal pelvis calculi, measuring up to 2 millimeter. IMPRESSION: No acute osseous abnormality or traumatic subluxation noted. Multilevel degenerative changes as above, contributing to degrees of canal stenosis and neural forami nal narrowing as detailed above. Please consider MRI follow-up for assessment of disc disease and impingement upon neural structures, if clinically indicated. Incidentally noted tiny right renal pelvis nonobstructing calculi.
--- NOTE | 2023-03-27 11:46 | RAD REPORT ---
EXAM DESCRIPTION: CT - CTHCSPWOC - 03/27/2023 10:54 am CLINICAL HISTORY: trauma, weakness COMPARISON: Ct Stroke Brain Wo Cont dated 03/20/2023 TECHNIQUE: Axial thin cut noncontrast CT images of the head were obtained. Axial thin cut noncontrast CT images of the cervical spine were obtained. Multiplanar reformatted images were generated and reviewed. All CT scans are performed using dose optimization technique as appropriate and may include automated exposure control or mA/KV adjustment according to patient size. FINDINGS: CT HEAD WITHOUT CONTRAST: No acute hemorrhage, hydrocephalus or extra-axial collection is identified.Bilateral basal ganglia fo ci of hypoattenuation are stable and nonspecific, may relate to chronic small vessel ischemic changes or sequelae of remote ischemia.No areas of brain edema or midline shift. The paranasal sinuses and mastoids are clear.The calvarium is intact. CT CERVICAL SPINE WITHOUT CONTRAST: No fracture or subluxation. Multilevel degenerative changes which straightening of the normal lordosi s which may be positional or secondary to muscle spasm. No prevertebral soft tissues swelling is iden tified. IMPRESSION: No acute traumatic intracranial or cervical spine findings. Chronic findings as above.
--- NOTE | 2023-03-27 12:48 | EKG ---
Test Date: 2023-03-27 Test Time: 10:36:50 Lubricating Machine Tender: ALISSA MEASUREMENT RESULTS: Intervals: Rate: 85 OK: 156 QRSD: 100 QT: 376 QTc: 447 Osgood: P: 38 OK: 156 QRS: -21 T: -10 INTERPRETIVE STATEMENTS: Normal sinus rhythm Voltage criteria for left ventricular hypertrophy Nonspecific T wave abnormality Abnormal ECG Compared to ECG 03/20/2023 08:27:57 Left ventricular hypertrophy now present T-wave abnormality now present Sinus tachycardia no longer present Left-axis deviation no longer present Myocardial infarct finding no longer present Electronically Signed On 03-27-23 12:47:49 CDT by Miles Lee
[2023-03-27] MEDS ORDERED: HYDROCODONE/APAP 5/325 MG TAB ONE (12:55)
[2023-03-27] MEDS ORDERED: ACETAMINOPHEN 500 MG TAB PO PRN (13:04)
--- NOTE | 2023-03-27 13:11 | P.HP ---
Certification for Inpatient Patient admitted to: Observation With expected LOS: <2 Midnights Patient will require the following post-hospital care: None Practitioner: I am a practitioner with admitting privileges, knowledge of patient current condition, hospital course, and medical plan of care. Services: Services provided to patient in accordance with Admission requirements found in Title 42 Section 412.3 of the Code of Federal Regulations Patient History Date of Service: 03/27/23 Reason for admission: Left sided weakness/paresthesias History of Present Illness: Patient is a 57-year-old gentleman came to the hospital with paresthesias and weakness on the left side. Patient has been feeling poorly for the last few days. He said the symptom started about a week ago when he came into the ER after he had fallen. He thought he had had a stroke and he had work-up done in the ER but he was told that he did not have a stroke. He went home and has been really ataxic and falling down. He has been having a hard time keeping his balance. He fell once again and he came back into the emergency room. He is having paresthesias and weakness. His work-up in the ER did not show an acute infarct. Patient was admitted to the hospital. I did an MRI of the brain which showed a left basal ganglia acute infarct. Patient has a history of CVA over the last few months. He has had 2 different strokes and that he is at a high risk of recurrence. We may need to give him some stronger antiplatelet or anticoagulation going forward. He may need a loop recorder to be monitored for recurrent atrial fibrillation. At this time, patient will be admitted for work- up for his stroke and physical therapy and speech therapy. Allergies iodine Allergy (Verified 01/26/23 14:56) Hives/Rash Home Medications: Acetaminophen [Tylenol Extra Strength] 500 mg PO Q6H PRN 11/22/22 Amlodipine Besylate [Norvasc] 5 mg PO BID 11/22/22 Aspirin [Aspirin EC 81 MG] 81 mg PO DAILY 11/22/22 Atorvastatin Calcium [Lipitor] 80 mg PO BEDTIME 11/22/22 Bisacodyl [Dulcolax*] 10 mg RC DAILY PRN 11/22/22 Clopidogrel Bisulfate [Plavix*] 75 mg PO DAILY 11/22/22 Cyclobenzaprine [Flexeril*] 10 mg PO TID PRN 11/22/22 Gabapentin 300 mg PO TID 11/22/22 Lidocaine 4% Patch [Lidoderm 5% Patch*] 1 patch TD DAILY 11/22/22 Losartan Potassium [Cozaar] 100 mg PO DAILY 11/22/22 Metoprolol Succinate [Toprol Xl*] 25 mg PO DAILY 11/22/22 Ondansetron [Zofran (Odt)*] 4 mg PO Q12H PRN 11/22/22 Pantoprazole Sodium [Protonix] 40 mg PO 0730 11/22/22 Polyethyl Gly 3350 [Glycolax*] 17 gm PO DAILY PRN 11/22/22 Sennosides/Docusate Sodium [Senna-S 8.6-50 mg Tablet] 1 each PO BEDTIME 11/22/22 Simethicone [Mylicon*] 80 mg PO Q6H PRN 11/22/22 Thiamine Mononitrate (Vit B1) [Vitamin B-1] 100 mg PO DAILY 11/22/22 bisacodyL [Dulcolax*] 10 mg PO DAILYPRN PRN 11/22/22 hydrOXYzine HCL [Atarax*] 25 mg PO TID PRN 11/22/22 Fluoxetine HCl [Prozac] 20 mg PO BID 30 Days 11/27/22 Insulin Glargine,Hum.rec.anlog [Semglee] 23 unit SQ BID 30 Days ml 11/27/22 - Past Medical/Surgical History Diabetic: Yes -: DM -: HTN -: NUEROPATHY -: ANXIETY -: BILATERAL KNEE SURGERY - Family History Father Family History: Reviewed- Non-Contributory - Social History Smoking Status: Former smoker Alcohol use: No CD- Drugs: No Caffeine use: Yes Review of Systems 10-point ROS is otherwise unremarkable Physical Examination - Vital Signs Temperature: 98 F (reviewed) - Physical Exam General: Alert, In no apparent distress, Oriented x3 HEENT: Atraumatic, PERRLA, Mucous membr. moist/pink, EOMI, Sclerae nonicteric Neck: Supple, 2+ carotid pulse no bruit, No LAD, Without JVD or thyroid abnormality Respiratory: Clear to auscultation bilaterally, Normal air movement Cardiovascular: Regular rate/rhythm, Normal S1 S2, No murmurs Gastrointestinal: Normal bowel sounds, Soft and benign, Non-distended, No tenderness Musculoskeletal: No clubbing, No swelling, No tenderness Integumentary: No rashes Neurological: Normal tone, Sensation intact, Cranial nerves 3-12 intact, Normal affect, Abnormal gait, Abnormal speech (dysarthria), Abnormal strength Lymphatics: No axilla or inguinal lymphadenopathy - Studies Laboratory Data (last 24 hrs) 03/27/23 03/27/23 10:34 10:34 WBC 10.50 Hgb 13.6 Hct 40.5 Plt Count 290 Sodium 138 Potassium 4.3 BUN 20 H Creatinine 0.72 Glucose 133 H Magnesium 1.6 Total Bilirubin 0.5 AST 14 L ALT 31 Alkaline Phosphatase 88 Assessment & Plan - Problems (Diagnosis) (1) Acute CVA (cerebrovascular accident) Current Visit: Yes Status: Acute (2) Basal ganglia stroke Current Visit: Yes Status: Acute (3) Diabetes mellitus type 2 in obese Current Visit: Yes Status: Acute (4) HTN (hypertension) Current Visit: Yes Status: Acute - Plan 1. MRI of the brain reviewed 2. Antiplatelet and statin therapy 3. Lipid profile pending 4. Physical therapy and speech therapy consultation 5. DVT prophylaxis 6. Neurochecks every 4 hours 7. Reassess stroke scale 8. GI and DVT prophylaxis Discharge Plan: Home - Advance Directives Does patient have a Living Will: No Does patient have a Durable POA for Healthcare: No - Code Status/Comfort Care Code Status Assessed: Yes Code Status: Full Code Critical Care: No Time Spent Managing PTS Care (In Minutes): 45
--- NOTE | 2023-03-27 13:22 | ER ---
Nurse's Notes [facility] Name: Liu Almonte Age: 57 yrs Sex: Male : 1965 Arrival Date: 03/27/2023 Time: 10:09 Bed 6 Private MD: Diagnosis: Left left-sided weakness;Fall, inability to ambulate;Low back pain Presentation: 03/27 10:12 Chief complaint: Patient states: CVA with left sided deficits on November 10, 2022. Was aa5 seen here on Sunday after a fall, pt reports pain to left shoulder, left hand, and lower back that has not improved, pt describes pain as "numbness, tingling, needles", unable to complete physical therapy this morning. 10:12 Acuity: [place] 3 aa5 10:12 Method Of Arrival: Wheelchair aa5 10:12 Coronavirus screen: At this time, the client does not indicate any symptoms associated aa5 with coronavirus-19. Ebola Screen: Patient denies travel to an Ebola-affected area in the 21 days before illness onset. Initial Sepsis Screen: Does the patient meet any 2 criteria? No. Patient's initial sepsis screen is negative. Does the patient have a suspected source of infection? No. Patient's initial sepsis screen is negative. Risk Assessment: Do you want to hurt yourself or someone else? Patient reports no desire to harm self or others. Onset of symptoms was March 20, 2023. Historical: - Allergies: 10:18 Iodine; aa5 - PMHx: 10:18 Anxiety; DM; Hypercholesterolemia; Hypertensive disorder; Left Ankle; stroke; Tib/Fib aa5 SX Left; CVA-11/10/2022 with left sided deficit (Tib/Fib SX Left); - Immunization history:: Adult Immunizations unknown. - Social history:: Smoking status: Patient denies any tobacco usage or history of. - Family history:: not pertinent. Screenin:10 [facility] ED Fall Risk Assessment (Adult) History of falling in the last 3 months, ld1 including since admission Yes- single mechanical fall (1 pt). Abuse screen: Denies threats or abuse. Denies injuries from another. Nutritional screening: No deficits noted. Tuberculosis screening: No symptoms or risk factors identified. Assessment: 10:34 Reassessment: Patient is alert, oriented x 3, equal unlabored respirations, skin aa5 warm/dry/pink. 10:40 Reassessment: Pt to CT . aa5 11:10 General: Appears in no apparent distress. comfortable, Behavior is calm, cooperative, ld1 appropriate for age. Pain: Complains of pain in left hand, left arm and left leg Pain does not radiate. Pain currently is 8 out of 10 on a pain scale. Quality of pain is described as throbbing. Neuro: Level of Consciousness is awake, alert, obeys commands, Oriented to person, place, time, situation. Cardiovascular: Capillary refill < 3 seconds Patient's skin is warm and dry. Respiratory: Airway is patent Respiratory effort is even, unlabored. GI: Abdomen is flat, non-distended. : No signs and/or symptoms were reported regarding the genitourinary system. EENT: No signs and/or symptoms were reported regarding the EENT system. Derm: No signs and/or symptoms reported regarding the dermatologic system. Musculoskeletal: No signs and/or symptoms reported regarding the musculoskeletal system. 11:57 Reassessment: Patient appears in no apparent distress at this time. No changes from kc6 previously documented assessment. Patient and/or family updated on plan of care and expected duration. Pain level reassessed. Patient is alert, oriented x 3, equal unlabored respirations, skin warm/dry/pink. 12:57 Reassessment: Patient appears in no apparent distress at this time. No changes from kc6 previously documented assessment. Patient and/or family updated on plan of care and expected duration. Pain level reassessed. Patient is alert, oriented x 3, equal unlabored respirations, skin warm/dry/pink. 13:48 Reassessment: Patient appears in no apparent distress at this time. No changes from kc6 previously documented assessment. Patient and/or family updated on plan of care and expected duration. Pain level reassessed. Patient is alert, oriented x 3, equal unlabored respirations, skin warm/dry/pink. Vital Signs: 10:12 BP 121 / 83; Pulse 89; Resp 18 S; Temp 97.9(TE); Pulse Ox 100% on R/A; Weight 103.87 kg aa5 (R); Height 5 ft. 4 in. (R); 11:17 BP 109 / 80; Pulse 80; Resp 17 S; Pulse Ox 100% on R/A; kc6 11:57 BP 131 / 80; Pulse 80; Resp 16 S; Pulse Ox 94% on R/A; kc6 10:12 Body Mass Index 39.31 (103.87 kg, 162.56 cm) aa5 ED Course: 10:11 Patient arrived in ED. mr 10:12 Dominik Cooper MD is Attending Physician. rt 10:12 Dominik Cooper MD is Attending Physician. rt 10:12 Arm band placed on. aa5 10:17 Triage completed. aa5 10:30 Missed attempt(s): 20 gauge in left forearm. Bleeding controlled, band aid applied, aa5 catheter tip intact. 10:34 Initial lab(s) drawn, by me, sent to lab. Inserted saline lock: 20 gauge in left aa5 antecubital area, using aseptic technique. 10:56 CT Lumbar Spine Wo Con In Process Unspecified. EDMS 10:56 CT Head C Spine In Process Unspecified. EDMS 11:07 Patient placed in an exam room, on a stretcher. ll1 11:10 Patient has correct armband on for positive identification. Placed in gown. Bed in low ld1 position. Call light in reach. Side rails up X2. nuclear monitoring technician on. Pulse ox on. NIBP on. Door closed. Noise minimized. Warm blanket given. 11:10 No provider procedures requiring assistance completed. ld1 11:14 Codie Ridley, PAULINA is Primary Nurse. kc6 13:20 Portillo Ramirez MD is Hospitalizing Provider. rt 13:48 Patient admitted, IV remains in place. kc6 Administered Medications: 12:45 Drug: HYDROcodone-acetaminophen PO 5 mg-325 mg 1 tabs PO once Route: PO; ko1 13:49 Follow up: Response: No adverse reaction; Pain is decreased; RASS: Alert and Calm (0) kc6 Medication: 11:10 VIS not applicable for this client. ld1 Outcome: 13:21 Decision to Hospitalize by Provider. rt 13:48 Condition: stable kc6 13:48 Admitted to ER Hold. Please see [facility] for further documentation. kc6 13:48 Instructed on the need for admit, 16:44 Patient left the ED. kc6 Signatures: Dispatcher [employer] EDMA Carol Jones, Reg Reg Pippa Lane RN RN aa5 Lucrecia Sharma, RN RN ll1 Tatiana Samuel RN RN ld1 Codie Ridley RN RN kc6 Anahy Ramírez RN RN ko1 Dominik Cooper MD MD rt Corrections: (The following items were deleted from the chart) 10:21 10:12 Pulse 89bpm; Resp 18bpm; Spontaneous; Pulse Ox 100% RA; Temp 97.9F Temporal; aa5 103.87 kg Reported; Height 5 ft. 4 in. Reported; BMI: 39.3; aa5
--- NOTE | 2023-03-27 13:22 | EDPHYS ---
Physician Documentation [facility] Name: Liu Almonte Age: 57 yrs Sex: Male : 1965 Arrival Date: 03/27/2023 Time: 10:09 Bed 6 Private MD: ED Physician Dominik Cooper HPI: 03/27 10:38 This 57 yrs old Male presents to ER via Wheelchair with complaints of Back rt Pain. 10:38 Patient presents to the ED with a fall about 1 week ago. Patient was seen in the ED rt that day, on discharge, he stated that he was not able to walk, had weakness on his left side causing a fall straight on his back. He reports pain since then. Patient states he still cannot walk. Denies other acute complaints at this time, symptoms are moderate severity, aching nature, nonradiating, no other aggravating relieving factors. Historical: - Allergies: 10:18 Iodine; aa5 - PMHx: 10:18 Anxiety; DM; Hypercholesterolemia; Hypertensive disorder; Left Ankle; stroke; Tib/Fib aa5 SX Left; CVA-11/10/2022 with left sided deficit (Tib/Fib SX Left); - Immunization history:: Adult Immunizations unknown. - Social history:: Smoking status: Patient denies any tobacco usage or history of. - Family history:: not pertinent. ROS: 10:38 Constitutional: Negative for fever, chills, and weight loss, Neck: Negative for injury, rt pain, and swelling, Cardiovascular: Negative for chest pain, palpitations, and edema, Respiratory: Negative for shortness of breath, cough, wheezing, and pleuritic chest pain, Abdomen/GI: Negative for abdominal pain, nausea, vomiting, diarrhea, and constipation, MS/Extremity: Negative for injury and deformity, Skin: Negative for injury, rash, and discoloration, 10:38 Back: Positive for pain at rest, pain with movement, 10:38 Neuro: Positive for numbness, weakness, Exam: 10:38 Constitutional: This is a well developed, well nourished patient who is awake, alert, rt and in no acute distress. Head/Face: Normocephalic, atraumatic. Chest/axilla: Normal chest wall appearance and motion. Nontender with no deformity. No lesions are appreciated. Cardiovascular: Regular rate and rhythm with a normal S1 and S2. No gallops, murmurs, or rubs. Normal PMI, no JVD. No pulse deficits. Respiratory: Lungs have equal breath sounds bilaterally, clear to auscultation and percussion. No rales, rhonchi or wheezes noted. No increased work of breathing, no retractions or nasal flaring. Abdomen/GI: Soft, non-tender, with normal bowel sounds. No distension or tympany. No guarding or rebound. No evidence of tenderness throughout. MS/ Extremity: Pulses equal, no cyanosis. Neurovascular intact. Full, normal range of motion. Neuro: Awake and alert, GCS 15, oriented to person, place, time, and situation. Cranial nerves II-XII grossly intact. Motor strength 5/5 in all extremities. Sensory grossly intact. Cerebellar exam normal. Normal gait. Psych: Awake, alert, with orientation to person, place and time. Behavior, mood, and affect are within normal limits. 10:38 ECG was reviewed by the Attending Physician. 10:38 Back: Tenderness to the lower lumbar region, no other midline tenderness, Vital Signs: 10:12 BP 121 / 83; Pulse 89; Resp 18 S; Temp 97.9(TE); Pulse Ox 100% on R/A; Weight 103.87 kg aa5 (R); Height 5 ft. 4 in. (R); 11:17 BP 109 / 80; Pulse 80; Resp 17 S; Pulse Ox 100% on R/A; kc6 11:57 BP 131 / 80; Pulse 80; Resp 16 S; Pulse Ox 94% on R/A; kc6 10:12 Body Mass Index 39.31 (103.87 kg, 162.56 cm) aa5 MDM: 10:15 Patient medically screened. rt 13:28 Differential diagnosis: CVA, paresthesia, back pain, fracture, compression fracture. rt Data reviewed: vital signs, nurses notes, lab test result(s), EKG, radiologic studies. Consideration of Admission/Observation Patient was admitted/placed on observation. Management of patient was discussed with the following: Hospitalist: Agrees to admit. I considered the following discharge prescriptions or medication management in the emergency department Medications were administered in the Emergency Department. See MAR. Independent interpretation of the following test(s) in the Emergency Department CT Scan: My interpretation is No hemorrhage seen on interpretation of the CT scan images. Care significantly affected by the following chronic conditions: Diabetes. Counseling: I had a detailed discussion with the patient and/or guardian regarding the historical points, exam findings, and any diagnostic results supporting the discharge/admit diagnosis, the presence of at least one elevated blood pressure reading (>120/80) during this emergency department visit, lab results, radiology results, the need for further work-up and treatment in the hospital. ED course: Greater than 24 hours since the onset of symptoms, patient is not a candidate for thrombolytics or endovascular retrieval therapy.. 03/27 10:21 Order name: CBC with Diff; Complete Time: 11:02 rt 03/27 10:21 Order name: CMP; Complete Time: 11:02 rt 03/27 10:21 Order name: Troponin High Sensitivity; Complete Time: 11:02 rt 03/27 10:21 Order name: Magnesium; Complete Time: 11:02 rt 03/27 13:11 Order name: CBC with Automated Diff EDMS 03/27 13:11 Order name: CBC with Automated Diff EDMS 03/27 13:11 Order name: Comprehensive Metabolic Panel EDMS 03/27 13:11 Order name: Comprehensive Metabolic Panel EDMS 03/27 13:12 Order name: Lipid Profile EDMS 03/27 13:12 Order name: Lipid Profile EDMS 03/27 13:12 Order name: Magnesium EDMS 03/27 13:12 Order name: Magnesium EDMS 03/27 13:12 Order name: Phosphorus EDMS 03/27 13:12 Order name: Phosphorus EDMS 03/27 10:21 Order name: CT Lumbar Spine Wo Con; Complete Time: 11:50 rt 03/27 10:21 Order name: CT Head C Spine; Complete Time: 11:50 rt 03/27 13:11 Order name: Echo with Doppler EDMS 03/27 13:12 Order name: Brain Wo Cont EDMS 03/27 13:12 Order name: Carotid Artery Bilateral EDMS 03/27 10:21 Order name: EKG; Complete Time: 10:21 rt 03/27 13:11 Order name: IRF Screen EDMS 03/27 13:11 Order name: Physical Therapy Consult EDMS 03/27 13:11 Order name: Speech Therapy Consult EDMS 03/27 10:21 Order name: EKG - Nurse/Tech; Complete Time: 10:34 rt EC:38 Rate is 85 beats/min. Rhythm is regular, Normal Sinus Rhythm with No ectopy, LVH rt present. Left axis deviation noted. [place] interval is normal. QRS interval is normal. QT interval is normal. No Q waves. Administered Medications: 12:45 Drug: HYDROcodone-acetaminophen PO 5 mg-325 mg 1 tabs PO once Route: PO; ko1 13:49 Follow up: Response: No adverse reaction; Pain is decreased; RASS: Alert and Calm (0) kc6 Disposition Summary: 03/27/23 13:21 Hospitalization Ordered Notes: Hospitalization Status: Observation rt Provider: Portillo Ramirez rt Location: Telemetry/MedSurg (observation) rt Condition: Stable rt Problem: new rt Symptoms: are unchanged rt Bed/Room Type: Standard rt Room Assignment: 429(03/27/23 15:53) bd Diagnosis - Left left-sided weakness rt - Fall, inability to ambulate rt - Low back pain rt Forms: - Medication Reconciliation Form rt - SBAR form rt - Leadership Thank You Letter rt Signatures: Dispatcher [employer] EDCristy Burns bd Pippa Lane, RN RN aa5 Anahy Ramírez RN RN ko1 Dominik Cooper MD MD rt Codie Ridley RN kc6 Corrections: (The following items were deleted from the chart) 15:53 13:21 rt bd
[2023-03-27] MEDS: NA CHLORIDE 0.9% 1,000 ML IV SCH (14:00)
--- NOTE | 2023-03-27 14:08 | RAD REPORT ---
EXAM DESCRIPTION: US - CP - 03/27/2023 1:52 pm CLINICAL HISTORY: cva Headache, drowsiness, CVA symptomology COMPARISON: Head C Spine Mpr Wo Con dated 03/27/2023 TECHNIQUE: Real-time sonographic evaluation of both carotid systems was performed. Doppler interroga tion was performed with waveform tracing bilaterally. FINDINGS: Normal high resistance waveforms are noted in both external carotid arteries. The common c arotid arteries and internal carotid arteries show normal low resistance waveforms. Focal moderate hard plaque is seen right carotid bulb. No additional significant plaquing seen. Peak systolic and end diastolic velocity values and the ICA/CCA ratios are in the non-hemodynamically sign ificant range. Antegrade flow seen in both vertebral arteries. IMPRESSION: Focal hard plaque is seen right carotid bulb. No evidence of a hemodynamically significant stenosis.
[2023-03-27 14:17] VITALS: BMI 35.3
--- NOTE | 2023-03-27 14:36 | RAD REPORT ---
EXAM DESCRIPTION: MRI - Brain Wo Cont - 03/27/2023 2:21 pm CLINICAL HISTORY: cva Headache, drowsiness, CVA symptomology COMPARISON: Ct Stroke Brain Wo Cont dated 03/20/2023 TECHNIQUE: Multi-sequence, multiplanar MR imaging of the brain was performed without contrast. FINDINGS: No intracranial hemorrhage, hydrocephalus or extra-axial fluid collections.Mild T2 and FLA IR hyperintensity in the periventricular and deep white matter compatible with chronic microvascular ischemia. No edema or shift of midline structures. No findings to suspect brain mass. There is 15 x 1 3 mm acute CVA seen posterior left basal ganglia. Midline structures are normally formed. Mastoid air cells and paranasal sinuses are clear. IMPRESSION: 15 x 13 mm acute CVA posterior left basal ganglia. No acute hemorrhage.
[2023-03-27] MEDS: GABAPENTIN 300 MG CAP PO SCH (20:49)
[2023-03-27] MEDS: ATORVASTATIN 80 MG TAB PO SCH (20:49)
[2023-03-27] MEDS: INSULIN GLARGINE 100 UNIT/ML SQ SCH (21:13)
[2023-03-28 03:09] LABS: Absolute Lymphocytes (CBC) 3.1 K/uL (0.7-4.9); Hematocrit 37.2 % (39.6-49.0); Lymphocytes % 31.1 % (15.3-44.8); MCV 88.2 fL (80-100); MPV 8.2 fL (7.6-11.3); Platelets 248 thou/uL (152-406); RBC Red Blood Cell Count 4.22 M/uL (4.33-5.43)
[2023-03-28] MEDS: NA CHLORIDE 0.9% 1,000 ML IV SCH ×2 (03:20→16:40)
[2023-03-28 03:51] LABS: Albumin 3.1 g/dL (3.4-5.0); Bilirubin Total 0.4 mg/dL (0.2-1.0); Magnesium 1.6 mg/dL (1.6-2.4); Phosphorus 3.5 mg/dL (2.5-4.9); Potassium 3.7 mEq/L (3.5-5.1); Protein, Total 6.8 g/dL (6.4-8.2)
[2023-03-28] MEDS ORDERED: MAGNESIUM SULFATE 1 gm IVPB 1 GM/100 ML BAG IV ONE (07:43)
[2023-03-28] MEDS ORDERED: KCL 20 MEQ/100 mL IVPB 20 MEQ/100 ML BAG IV SCH (08:00)
[2023-03-28] MEDS ORDERED: LORAZEPAM 0.5 MG TABLET PO ONE (09:12)
[2023-03-28] MEDS: ASPIRIN EC 81 MG TAB PO SCH (09:13)
[2023-03-28] MEDS: GABAPENTIN 300 MG CAP PO SCH ×3 (09:13→20:40)
[2023-03-28] MEDS: ENOXAPARIN 40 MG/0.4 ML SQ SCH (09:13)
[2023-03-28] MEDS: HYDROCODONE/APAP 5/325 MG TAB PO PRN ×3 (09:18→20:44)
[2023-03-28] MEDS ORDERED: POTASSIUM CL SA 10 MEQ TAB PO ONE (09:20)
[2023-03-28] MEDS: FLUOXETINE 20 MG CAP PO SCH (09:28)
[2023-03-28] MEDS: hydrOXYzine HCL 25 MG TAB PO PRN ×3 (09:28→20:44)
--- NOTE | 2023-03-28 15:27 | CON ---
Reason For Consultation: Consultation was called because of stroke. History Of Present Illness: Mr. Almonte is a 57-year-old, right-handed, patient who was rece ntly in hospital recovering from a stroke affecting his left body. He was actually doing physical . Earlier this week, Sunday, he said he woke up and had problems walking. His balance was off. His right arm and leg appeared somewhat weaker than usual. He came to [facility], well ou tside of a window for thrombolytics as he was around a day late coming into the hospital. He arrived at 10:09 a.m. on 03/27/2023 when the symptoms began the previous day. He was found to have some lef t-sided weakness and difficulty with ambulation and was falling when trying to walk because of the ri ght-sided weakness. He also had numbness and tingling in the right upper extremity. His head CT and cervical spine CT scan done at 10:21 showed no acute ischemic or hemorrhagic changes. There were bi lateral basal ganglia foci of hypoattenuation, which were noted to be stable from previous scans and a small vessel ischemic disease and the sequelae of remote infarction also identified. The patient s aid he was taking aspirin and Plavix regularly, but he attributes this new stroke to "eating too much ." His subsequent brain MRI identified a 15 x 30 mm in the left basal ganglia. It is consistent wit h the patient's right-sided symptoms in terms of upper and lower extremities and his incoordination. Past Medical History: Hypertension, peripheral neuropathy, dyslipidemia, gastroesophageal reflux, an xiety, depression, and diabetes mellitus. Allergies: IODINE. Home Medications: Tylenol 500 mg every 6 hours as needed, Norvasc 5 mg twice daily, aspirin 81 mg da johny, atorvastatin 80 mg, Dulcolax 10 mg per rectum as needed, Plavix 75 mg daily, Flexeril 10 mg gabe y, gabapentin 300 mg 3 times daily, lidocaine patch apply topically as needed, Cozaar 100 mg daily, T oprol 25 mg daily, Zofran 4 mg every 12 hours as needed, Protonix 40 mg daily, thiamine 100 mg daily, duloxetine 20 mg twice daily and he takes insulin glargine 23 units subcutaneously twice daily. Social History: The patient denies alcohol, tobacco, or IV drug use. Lives in a single-family home. Family History: Noncontributory. Review of Systems: Patient does have diffuse weakness prior to the recent stroke, mild myalgias, arthralgias. Denies an y rash, headache, mild depression in terms of mood and denies significant genitourinary or gastrointe stinal issues. Physical Examination: Vital Signs: Blood pressure 128/86 up to 153/85, pulse ranged from 75 to 86, temperature 97.6, oxyge n saturation 95% to 100%. The patient does have class 2 obesity, BMI of 35.4 with a weight of 206 po unds, height 5 feet 4 inches. General: Mr. Almonte sitting in a chair beside his bed. He just ate lunch. He does have poor dentit ion. HEENT: Otherwise, he is normocephalic and atraumatic. His sclerae are anicteric. Oropharynx is [address] st. Neck: Supple. Chest: Clear. Heart: Regular. Neuro: Cranial nerve examination, no obvious focal deficits in terms of 2 through 12. His motor exa mination despite the stroke is actually fairly good. He has about 4/5 strength in both right and lef t upper extremity. He has some difficulty with coordination and fine finger movements in the right u pper extremity and in terms of the lower extremities bilaterally at least 4/5. Mild incoordination o n the right side. In terms of gait, he did require assistance with a rolling walker and gait belt an d will be likely a great candidate for aggressive rehabilitation when recovers his ability to ambulat e as he tends to fall especially over to the right side. Laboratory Studies: Complete blood count with differential is unremarkable. Basic metabolic panel: Sodium, potassium are all normal. Chloride slightly elevated 109. His creatinine 0.69, glucose ran ged from 99 to 211, calcium 8.8. Liver function studies are unremarkable. LDL cholesterol 49, HDL 3 1, total cholesterol 104, triglycerides 120. His electrocardiogram shows normal sinus rhythm, voltag e criteria for left ventricular hypertrophy, nonspecific T-wave abnormality. Ultrasound of the carot id arteries shows focal hard plaque seen in the right carotid bulb. No evidence of hemodynamically s ignificant stenosis. Assessment: Mr. Almonte is a 57-year-old patient with multiple stroke risk factors including prior st roke, which affected his left body, hypertension, diabetes mellitus, class 2 obesity, gastroesophagea l reflux, depression, who now has an acute stroke affecting the left basal ganglia producing some rig ht-sided symptoms. He also has incoordination and gait difficulties. Plan: 1.Continue aspirin, Plavix, and add folic acid 1 mg daily and patient will continue his atorvastatin 80 mg at bedtime. 2.Continue gabapentin for diabetic peripheral neuropathy. 3.Continue his Semglee insulin, now on 20 units subcutaneously. 4.He may be evaluated for inpatient rehabilitation to have his best chance of recovering as fully as possible. LOAN/DRE Voice ID: [id number] Report ID: [id number]
[2023-03-28] MEDS: ATORVASTATIN 80 MG TAB PO SCH (20:40)
[2023-03-28] MEDS: INSULIN GLARGINE 100 UNIT/ML SQ SCH (20:42)
[2023-03-29 04:22] LABS: Magnesium 1.7 mg/dL (1.6-2.4); Potassium 4.2 mEq/L (3.5-5.1)
[2023-03-29] MEDS: NA CHLORIDE 0.9% 1,000 ML IV SCH ×2 (06:00→10:41)
--- NOTE | 2023-03-29 07:28 | ECHO ---
HEIGHT: 5 ft 4 in WEIGHT: 206 lb 0 oz DATE OF STUDY: 03/28/[address]: Portillo aRmirez MD 2-DIMENSIONAL: YES M.MODE: YES DOPPLER: YES COLOR FLOW: YES TDS: PORTABLE: YES DEFINITY: BUBBLE STUDY: DIAGNOSIS: STROKE CARDIAC HISTORY: CATHERIZATION: SURGERY: PROSTHETIC VALVE: PACEMAKER: MEASUREMENTS (cm) DIASTOLIC (NORMALS) SYSTOLIC (NORMALS) IVSd 1.0 (0.6-1.2) LA Diam 3.2 (1.9-4.0) LVEF 53% LVIDd 3.9 (3.5-5.7) LVIDs 2.8 (2.0-3.5) %FS 27% LVPWd 1.3 (0.6-1.2) Ao Diam 2.9 (2.0-3.7) 2 DIMENSIONAL ASSESSMENT: RIGHT ATRIUM: NORMAL LEFT ATRIUM: NORMAL RIGHT VENTRICLE: NORMAL LEFT VENTRICLE: NORMAL TRICUSPID VALVE: NORMAL MITRAL VALVE: NORMAL PULMONIC VALVE: NORMAL AORTIC VALVE: NORMAL PERICARDIAL EFFUSION: NONE AORTIC ROOT: NORAML LEFT VENTRICULAR WALL MOTION: NORMAL DOPPLER/COLOR FLOW: NORMAL COMMENTS: 1. NORMAL LEFT VENTRICULAR EJECTION FRACTION 55-60% 2. NORMAL WALL MOTION 3. NORMAL DIASTOLIC FUNCTION TECHNOLOGIST: MARBIN VOEGL
[2023-03-29] MEDS: hydrOXYzine HCL 25 MG TAB PO PRN ×3 (07:41→21:28)
[2023-03-29] MEDS: HYDROCODONE/APAP 5/325 MG TAB PO PRN ×3 (07:41→21:28)
[2023-03-29] MEDS: ASPIRIN EC 81 MG TAB PO SCH (07:41)
[2023-03-29] MEDS: GABAPENTIN 300 MG CAP PO SCH ×3 (07:41→21:28)
[2023-03-29] MEDS: ENOXAPARIN 40 MG/0.4 ML SQ SCH (07:42)
[2023-03-29] MEDS: FLUOXETINE 20 MG CAP PO SCH (07:42)
[2023-03-29] MEDS ORDERED: METFORMIN HCL 500 MG TAB PO ONE (12:30)
[2023-03-29] MEDS: METFORMIN HCL 500 MG TAB PO SCH (16:29)
[2023-03-29] MEDS: METOPROLOL TAR 25 MG TAB PO SCH (18:32)
[2023-03-29] MEDS: ATORVASTATIN 80 MG TAB PO SCH (21:28)
[2023-03-29] MEDS: INSULIN GLARGINE 100 UNIT/ML SQ SCH (21:29)
[2023-03-30] MEDS: METOPROLOL TAR 25 MG TAB PO SCH ×2 (05:28→16:53)
[2023-03-30 06:30] LABS: Absolute Lymphocytes (CBC) 2.2 K/uL (0.7-4.9); Hematocrit 36.8 % (39.6-49.0); Lymphocytes % 29.7 % (15.3-44.8); MCV 87.5 fL (80-100); MPV 7.7 fL (7.6-11.3); Platelets 239 thou/uL (152-406); RBC Red Blood Cell Count 4.21 M/uL (4.33-5.43)
[2023-03-30 06:49] LABS: Albumin 3.2 g/dL (3.4-5.0); Bilirubin Total 0.3 mg/dL (0.2-1.0); Magnesium 1.6 mg/dL (1.6-2.4); Phosphorus 3.5 mg/dL (2.5-4.9); Potassium 4.1 mEq/L (3.5-5.1); Protein, Total 6.7 g/dL (6.4-8.2)
[2023-03-30] MEDS: METFORMIN HCL 500 MG TAB PO SCH ×2 (08:40→16:53)
[2023-03-30] MEDS: ASPIRIN EC 81 MG TAB PO SCH (08:40)
[2023-03-30] MEDS: hydrOXYzine HCL 25 MG TAB PO PRN ×2 (08:40→21:04)
[2023-03-30] MEDS: HYDROCODONE/APAP 5/325 MG TAB PO PRN ×3 (08:40→21:04)
[2023-03-30] MEDS: ENOXAPARIN 40 MG/0.4 ML SQ SCH (08:41)
[2023-03-30] MEDS: GABAPENTIN 300 MG CAP PO SCH ×3 (08:41→21:04)
[2023-03-30] MEDS: FLUOXETINE 20 MG CAP PO SCH (08:41)
[2023-03-30] MEDS ORDERED: MAGNESIUM SULFATE 1 gm IVPB 1 GM/100 ML BAG IV ONE (09:00)
[2023-03-30] MEDS: ONDANSETRON 4 MG/2 ML VIAL IV PRN ×2 (11:46→18:40)
[2023-03-30] MEDS ORDERED: PANTOPRAZOLE 40MG TABLET PO ONE (16:36)
[2023-03-30] MEDS ORDERED: BISACODYL 10 MG RECTAL SUPP PR ONE (16:38)
[2023-03-30] MEDS ORDERED: MAGNESIUM HYDROXIDE 8% 30 ML PO PRN (21:00)
[2023-03-30] MEDS: INSULIN GLARGINE 100 UNIT/ML SQ SCH (21:03)
[2023-03-30] MEDS: ATORVASTATIN 80 MG TAB PO SCH (21:04)
[2023-03-30] MEDS ORDERED: MAGNESIUM HYDROXIDE 8% 30 ML ONE (21:14)
[2023-03-31] MEDS: HYDROCODONE/APAP 5/325 MG TAB PO PRN ×3 (06:10→20:33)
[2023-03-31] MEDS: METOPROLOL TAR 25 MG TAB PO SCH ×2 (06:10→18:00)
[2023-03-31 06:55] LABS: Magnesium 1.9 mg/dL (1.6-2.4); Phosphorus 3.9 mg/dL (2.5-4.9); Potassium 3.9 mEq/L (3.5-5.1)
[2023-03-31] MEDS: ENOXAPARIN 40 MG/0.4 ML SQ SCH (08:01)
[2023-03-31] MEDS: ASPIRIN EC 81 MG TAB PO SCH (08:02)
[2023-03-31] MEDS: PANTOPRAZOLE 40MG TABLET PO SCH ×2 (08:02→17:59)
[2023-03-31] MEDS: GABAPENTIN 300 MG CAP PO SCH ×3 (08:02→20:35)
[2023-03-31] MEDS: hydrOXYzine HCL 25 MG TAB PO PRN (08:02)
[2023-03-31] MEDS: METFORMIN HCL 500 MG TAB PO SCH ×2 (08:02→17:59)
[2023-03-31] MEDS: FLUOXETINE 20 MG CAP PO SCH (08:02)
[2023-03-31 10:47] VITALS: O2SAT 95
[2023-03-31] MEDS: ATORVASTATIN 80 MG TAB PO SCH (20:34)
[2023-03-31] MEDS: INSULIN GLARGINE 100 UNIT/ML SQ SCH (20:35)
[2023-04-01] MEDS: HYDROCODONE/APAP 5/325 MG TAB PO PRN ×3 (03:46→21:06)
[2023-04-01] MEDS: METOPROLOL TAR 25 MG TAB PO SCH ×2 (06:09→16:51)
[2023-04-01] MEDS: ENOXAPARIN 40 MG/0.4 ML SQ SCH (08:28)
[2023-04-01] MEDS: METFORMIN HCL 500 MG TAB PO SCH ×2 (08:28→16:52)
[2023-04-01] MEDS: PANTOPRAZOLE 40MG TABLET PO SCH ×2 (08:29→16:52)
[2023-04-01] MEDS: hydrOXYzine HCL 25 MG TAB PO PRN ×3 (08:29→21:11)
[2023-04-01] MEDS: ASPIRIN EC 81 MG TAB PO SCH (08:29)
[2023-04-01] MEDS: FLUOXETINE 20 MG CAP PO SCH (08:29)
[2023-04-01] MEDS: GABAPENTIN 300 MG CAP PO SCH ×3 (08:29→21:06)
[2023-04-01] MEDS: INSULIN GLARGINE 100 UNIT/ML SQ SCH (21:00)
[2023-04-01] MEDS: ATORVASTATIN 80 MG TAB PO SCH (21:06)
[2023-04-01] MEDS ORDERED: CALCIUM CARBONATE CHEW 500MG TAB PO PRN (21:52)
--- NOTE | 2023-04-02 04:45 | P.PN ---
Subjective Date of Service: 03/28/23 Subjective: No new changes, No C/O voiced, Improving Review of Systems 10-point ROS is otherwise unremarkable Physical Examination - Vital Signs Temperature: 96.2 F Blood Pressure: 160/90 Pulse: 81 Respirations: 16 Pulse Ox (%): 97 - Physical Exam General: Alert, In no apparent distress, Oriented x3 HEENT: Atraumatic, PERRLA, EOMI Neck: Supple, JVD not distended Respiratory: Clear to auscultation bilaterally, Normal air movement Cardiovascular: Regular rate/rhythm, Normal S1 S2 Gastrointestinal: Normal bowel sounds, No tenderness Musculoskeletal: No tenderness Integumentary: No rashes Neurological: Normal speech, Normal tone, Normal affect Lymphatics: No axilla or inguinal lymphadenopathy - Studies Medications List Reviewed: Yes Assessment & Plan - Problems (Diagnosis) (1) Acute CVA (cerebrovascular accident) Current Visit: Yes Status: Acute (2) Basal ganglia stroke Current Visit: Yes Status: Acute (3) Diabetes mellitus type 2 in obese Current Visit: Yes Status: Acute (4) HTN (hypertension) Current Visit: Yes Status: Acute - Plan 1. MRI of the brain reviewed; patient with acute CVA. 2. Antiplatelet and statin therapy 3. Lipid profile reviewed 4. Physical therapy and speech therapy consultation appreciated 5. DVT prophylaxis 6. Neurochecks every 4 hours 7. Reassess stroke scale 8. Strict blood pressure control 9. IPR eval 10. GI and DVT prophylaxis Discharge Plan: Other Plan to discharge in: Greater than 2 days - Advance Directives Does patient have a Living Will: No Does patient have a Durable POA for Healthcare: No - Code Status/Comfort Care Code Status: Full Code Critical Care: No Time Spent Managing PTS Care (In Minutes): 35
--- NOTE | 2023-04-02 04:47 | P.PN ---
Date of Service: 03/29/23 Subjective Subjective: Patient is doing well. Patient still ataxic when he is working well with physical therapy. Patient dressed for the left whenever he is walking. His speech is stable and improved. Physical Examination - Vital Signs reviewed - Physical Exam General: Alert, In no apparent distress, Oriented x3 Respiratory: Clear to auscultation bilaterally, Normal air movement Cardiovascular: Regular rate/rhythm, Normal S1 S2 Gastrointestinal: Normal bowel sounds, No tenderness Musculoskeletal: No tenderness Neurological: No focal defiicits Assessment & Plan - Problems (Diagnosis) (1) Acute CVA (cerebrovascular accident) Current Visit: Yes Status: Acute (2) Basal ganglia stroke Current Visit: Yes Status: Acute (3) Diabetes mellitus type 2 in obese Current Visit: Yes Status: Acute (4) HTN (hypertension) Current Visit: Yes Status: Acute - Plan Continue with plan of care as mentioned below: 1. MRI of the brain reviewed; patient with acute CVA. 2. Antiplatelet and statin therapy 3. Lipid profile reviewed 4. Physical therapy and speech therapy consultation appreciated 5. DVT prophylaxis 6. Neurochecks every 4 hours 7. Reassess stroke scale 8. Strict blood pressure control 9. IPR eval 10. GI and DVT prophylaxis Discharge Plan: Other Plan to discharge in: Greater than 2 days - Advance Directives Does patient have a Living Will: No Does patient have a Durable POA for Healthcare: No - Code Status/Comfort Care Code Status: Full Code Critical Care: No Time Spent Managing PTS Care (In Minutes): 35
--- NOTE | 2023-04-02 04:48 | P.PN ---
Date of Service: 03/30/23 Subjective Subjective: Patient continues to do well with the med plan and patient's clinical symptoms since. He denies any new complaints. Physical Examination - Vital Signs reviewed - Physical Exam General: Alert, In no apparent distress, Oriented x3 Respiratory: Clear to auscultation bilaterally, Normal air movement Cardiovascular: Regular rate/rhythm, Normal S1 S2 Gastrointestinal: Normal bowel sounds, No tenderness Musculoskeletal: No tenderness Neurological: No focal deficits Assessment & Plan - Problems (Diagnosis) (1) Acute CVA (cerebrovascular accident) Current Visit: Yes Status: Acute (2) Basal ganglia stroke Current Visit: Yes Status: Acute (3) Diabetes mellitus type 2 in obese Current Visit: Yes Status: Acute (4) HTN (hypertension) Current Visit: Yes Status: Acute - Plan Continue with plan of care as mentioned below: 1. MRI of the brain reviewed; patient with acute CVA. 2. Continue with antiplatelet and statin therapy 3. Lipid profile reviewed 4. Physical therapy and speech therapy consultation appreciated 5. DVT prophylaxis 6. Neurochecks every 4 hours 7. Reassess stroke scale 8. Strict blood pressure control 9. IPR eval 10. GI and DVT prophylaxis Discharge Plan: Other Plan to discharge in: Greater than 2 days - Advance Directives Does patient have a Living Will: No Does patient have a Durable POA for Healthcare: No - Code Status/Comfort Care Code Status: Full Code Critical Care: No Time Spent Managing PTS Care (In Minutes): 25
--- NOTE | 2023-04-02 04:50 | P.PN ---
Date of Service: 04/01/23 Subjective Subjective: patient is doing well. Patient denies any new complaints. Awaiting for discharge. Patient will either go to inpatient rehab if the diet and he will gets approved for he will go home with home health and physical therapy. Physical Examination - Vital Signs reviewed - Physical Exam General: Alert, In no apparent distress, Oriented x3 Respiratory: Clear to auscultation bilaterally, Normal air movement Cardiovascular: Regular rate/rhythm, Normal S1 S2 Gastrointestinal: Normal bowel sounds, No tenderness Musculoskeletal: No tenderness Neurological: Slightly ataxic gait. Patient during this on ambulation. Assessment & Plan - Problems (Diagnosis) (1) Acute CVA (cerebrovascular accident) Current Visit: Yes Status: Acute (2) Basal ganglia stroke Current Visit: Yes Status: Acute (3) Diabetes mellitus type 2 in obese Current Visit: Yes Status: Acute (4) HTN (hypertension) Current Visit: Yes Status: Acute - Plan Continue with plan of care as mentioned below: 1. MRI of the brain reviewed; patient with acute CVA. 2. Continue with antiplatelet and statin therapy 3. Lipid profile reviewed 4. Physical therapy and speech therapy consultation appreciated 5. DVT prophylaxis 6. Neurochecks every 4 hours 7. Reassess stroke scale 8. Strict blood pressure control 9. IPR eval 10. GI and DVT prophylaxis - Code Status/Comfort Care Code Status: Full Code Critical Care: No Time Spent Managing PTS Care (In Minutes): 25
--- NOTE | 2023-04-02 04:50 | P.PN ---
Date of Service: 03/31/23 Subjective Subjective: Patient is stable. Patient was denied inpatient rehab. Patient is having expedited appeal. I believe patient could possibly go home. When he does not feel comfortable going home as he has no help there. He wants to see if he gets approved for inpatient rehab. If he does not then he will be discharged home with home health physical therapy. Physical Examination - Vital Signs reviewed - Physical Exam General: Alert, In no apparent distress, Oriented x3 Respiratory: Clear to auscultation bilaterally, Normal air movement Cardiovascular: Regular rate/rhythm, Normal S1 S2 Gastrointestinal: Normal bowel sounds, No tenderness Musculoskeletal: No tenderness Neurological: Slightly ataxic gait. Patient during this on ambulation. Assessment & Plan - Problems (Diagnosis) (1) Acute CVA (cerebrovascular accident) Current Visit: Yes Status: Acute (2) Basal ganglia stroke Current Visit: Yes Status: Acute (3) Diabetes mellitus type 2 in obese Current Visit: Yes Status: Acute (4) HTN (hypertension) Current Visit: Yes Status: Acute - Plan Continue with plan of care as mentioned below: 1. MRI of the brain reviewed; patient with acute CVA. 2. Continue with antiplatelet and statin therapy 3. Lipid profile reviewed 4. Physical therapy and speech therapy consultation appreciated 5. DVT prophylaxis 6. Neurochecks every 4 hours 7. Reassess stroke scale 8. Strict blood pressure control 9. IPR eval 10. GI and DVT prophylaxis Discharge Plan: Other Plan to discharge in: Greater than 2 days - Advance Directives Does patient have a Living Will: No Does patient have a Durable POA for Healthcare: No - Code Status/Comfort Care Code Status: Full Code Critical Care: No Time Spent Managing PTS Care (In Minutes): 25
[2023-04-02] MEDS: METOPROLOL TAR 25 MG TAB PO SCH ×2 (05:40→17:11)
[2023-04-02] MEDS: ENOXAPARIN 40 MG/0.4 ML SQ SCH (08:21)
[2023-04-02] MEDS: FLUOXETINE 20 MG CAP PO SCH (08:21)
[2023-04-02] MEDS: PANTOPRAZOLE 40MG TABLET PO SCH ×2 (08:21→17:11)
[2023-04-02] MEDS: METFORMIN HCL 500 MG TAB PO SCH ×2 (08:21→17:11)
[2023-04-02] MEDS: GABAPENTIN 300 MG CAP PO SCH ×2 (08:21→14:03)
[2023-04-02] MEDS: ASPIRIN EC 81 MG TAB PO SCH (08:21)
[2023-04-02] MEDS: HYDROCODONE/APAP 5/325 MG TAB PO PRN ×2 (08:25→14:03)
[2023-04-02] MEDS ORDERED: METHYL SALICYLATE/MENTHOL 3 OZ TUBE TOP PRN (08:25)
[2023-04-02] MEDS ORDERED: LOSARTAN POTASSIUM 50 MG TABLET PO SCH (09:00)
--- NOTE | 2023-04-02 16:11 | P.DS ---
Admission Date: 03/27/23 Discharge Date: 04/02/23 Disposition: TRANSFER TO INPATIENT REHAB Discharge Condition: GOOD Reason for Admission: Left sided weakness/paresthesias Consultations: 1. Neurology Hospital Course: DIAGNOSES: # Acute Basal Ganglia Cerebrovascular Accident # Type II Diabetes Mellitus # Hypertension # Obesity - BMI 35.4 kg/m2 HOSPITAL COURSE: Mr. Liu Almonte is a pleasant 57 year old male with a past medical history significant for prior cerebrovascular accident, type II diabetes mellitus, hypertension who was admitted to the [facility] on 03/27/2023 for left upper extremity numbness/weakness. He was admitted to the Medicine service. Upon further evaluation, his CT head/cervical spine revealed, "no acute traumatic intracranial or cervical spine findings." His carotid ultrasound revealed, "focal hard plaque is seen right carotid bulb. No evidence of a hemodynamically significant stenosis." His MRI brain revealed, "15 x 13 mm acute CVA posterior left basal ganglia. No acute hemorrhage." His CT lumbar spine revealed, "no acute osseous abnormality or traumatic subluxation noted. Multilevel degenerative changes as above, contributing to degrees of canal stenosis and neural foraminal narrowing as detailed above. Please consider MRI follow-up for assessment of disc disease and impingement upon neural structures, if clinically indicated. Incidentally noted tiny right renal pelvis nonobstructing calculi." Neurology was consulted and he was evaluated by Dr. Ryder. He recommended discharge with PT services and aspirin, folic acid, atorvastatin, clopidogrel. He was evaluated by PT and it was recommended that he be discharged to inpatient rehab. With the assistance of case management, he was accepted to [facility]. On 04/02/2023, he was seen on rounds and deemed medically stable for discharge. He was discharged with instructions to schedule follow-up appointments with his PCP (DAGO Matthews) and with Neurology (Dr. Ryder). He was given the opportunity to ask questions and reported no further questions. Furthermore, all questions were answered to the best of my ability. A copy of this discharge summary will be sent to the above providers to facilitate continuity of care. Today, I personally spent 25 minutes on his case, of which greater than 50% of the time was spent in patient education, counseling, and coordination of care as described above. NIH Stroke Scale 1a. Level of consciousness: 0 - Alert; keenly responsive 1b. LOC questions: 0 - Both questions right 1c. LOC commands: 0 - Performs both tasks 2. Best Gaze: 0 - Normal 3. Visual: 0 - No visual loss 4. Facial Palsy: 0 - Normal symmetry 5a. Motor left arm: 0 - No drift for 10 seconds 5b. Motor right arm: 0 - No drift for 10 seconds 6a. Motor left le - No drift for 5 seconds 6b. Motor right le - No drift for 5 seconds 7. Limb ataxia: 1- Ataxia in 1 limb (LUE) 8. Sensory: 0 - Normal; no sensory loss 9. Best Language: 0 - Normal; no aphasia 10. Dysarthria: 0 - Normal 11. Extinction and Inattention: 0 - No abnormality 12. Distal motor function: 0 - No abnormality Total Score: 1 Vital Signs/Physical Exam: Temp Pulse Resp BP Pulse Ox 97.1 F 74 16 158/89 H 96 04/02/23 08:00 04/02/23 08:00 04/02/23 08:00 04/02/23 08:00 04/02/23 08:00 General: Alert, In no apparent distress, Oriented x3 HEENT: Atraumatic, Mucous membr. moist/pink, Sclerae nonicteric Neck: JVD not distended Respiratory: Clear to auscultation bilaterally, Normal air movement Cardiovascular: No edema, Regular rate/rhythm, Normal S1 S2, No gallops, No rubs, No murmurs Gastrointestinal: Normal bowel sounds, Soft and benign, Non-distended, No tenderness, No rebound, No guarding Musculoskeletal: No clubbing Integumentary: No rashes Neurological: Normal speech, Normal strength at 5/5 x4 extr, Normal affect, Abnormal sensation (numbness/tingling and ataxia of left upper extremity) Laboratory Data at Discharge: WBC 7.30 thou/uL (4.3-10.9) 03/30/23 06:10 Hgb 12.7 g/dL (13.6-17.9) L 03/30/23 06:10 Hct 36.8 % (39.6-49.0) L 03/30/23 06:10 Plt Count 239 thou/uL (152-406) 03/30/23 06:10 Sodium 138 mEq/L (136-145) 03/31/23 05:30 Potassium 3.9 mEq/L (3.5-5.1) 03/31/23 05:30 BUN 13 mg/dL (7-18) 03/31/23 05:30 Creatinine 0.62 mg/dL (0.70-1.30) L 03/31/23 05:30 Glucose 97 mg/dL (74-106) 03/31/23 05:30 Phosphorus 3.9 mg/dL (2.5-4.9) 03/31/23 05:30 Magnesium 1.9 mg/dL (1.6-2.4) 03/31/23 05:30 Total Bilirubin 0.3 mg/dL (0.2-1.0) 03/30/23 06:10 AST 13 U/L (15-37) L 03/30/23 06:10 ALT 25 U/L (16-61) 03/30/23 06:10 Alkaline Phosphatase 77 U/L (45-117) 03/30/23 06:10 Triglycerides 120 mg/dL (<150) 03/28/23 02:04 Cholesterol 104 mg/dL (<200) 03/28/23 02:04 HDL Cholesterol 31 mg/dL (40-60) L 03/28/23 02:04 Cholesterol/HDL Ratio 3.35 03/28/23 02:04 Home Medications: Acetaminophen [Tylenol Extra Strength] 500 mg PO Q6H PRN 11/22/22 Amlodipine Besylate [Norvasc] 5 mg PO BID 11/22/22 Aspirin [Aspirin EC 81 MG] 81 mg PO DAILY 11/22/22 Atorvastatin Calcium [Lipitor] 80 mg PO BEDTIME 11/22/22 Bisacodyl [Dulcolax*] 10 mg RC DAILY PRN 11/22/22 Clopidogrel Bisulfate [Plavix*] 75 mg PO DAILY 11/22/22 Cyclobenzaprine [Flexeril*] 10 mg PO TID PRN 11/22/22 Gabapentin 300 mg PO TID 11/22/22 Lidocaine 4% Patch [Lidoderm 5% Patch*] 1 patch TD DAILY 11/22/22 Ondansetron [Zofran (Odt)*] 4 mg PO Q12H PRN 11/22/22 Pantoprazole Sodium [Protonix] 40 mg PO 0730 11/22/22 Polyethyl Gly 3350 [Glycolax*] 17 gm PO DAILY PRN 11/22/22 Sennosides/Docusate Sodium [Senna-S 8.6-50 mg Tablet] 1 each PO BEDTIME 11/22/22 Simethicone [Mylicon*] 80 mg PO Q6H PRN 11/22/22 Thiamine Mononitrate (Vit B1) [Vitamin B-1] 100 mg PO DAILY 11/22/22 bisacodyL [Dulcolax*] 10 mg PO DAILYPRN PRN 11/22/22 hydrOXYzine HCL [Atarax*] 25 mg PO TID PRN 11/22/22 Fluoxetine HCl [Prozac] 20 mg PO BID 30 Days 11/27/22 Insulin Glargine,Hum.rec.anlog [Semglee] 23 unit SQ BID 30 Days ml 11/27/22 Folic Acid 1 mg PO DAILY #1 04/02/23 Losartan Potassium [Cozaar*] 50 mg PO BID 04/02/23 Metoprolol Tartrate [Lopressor*] 50 mg PO BID 6AM 6PM tab 04/02/23 New Medications: Folic Acid 1 mg PO DAILY #1 Physician Discharge Instructions: 1. Please call and schedule a follow-up appointment with your PCP (DAGO Matthews) in 3-5 days - Your bloodwork showed mild anemia. Please discuss further evaluation, including a colonoscopy, with your PCP 2. Please call and schedule a follow-up appointment with Neurology (Dr. Ryder) in 5-7 days - Your CT scan of your back showed multiple narrowed/bulging discs. Please discuss with Dr. Ryder at your upcoming visit. Please follow-up with your PCP for medication refills/adjustments Diet: AHA Activity: Fall precautions Followup: ANN MATTHEWS [Primary Care Provider] - Reggie Ryder MD [ASSOCIATE-ACTIVE - CAN ADMIT] - Time spent managing pt's care (in minutes): 25
[2023-04-02 16:16] VITALS: BP 160/75; TEMP 97.3
== END 2023-04-02 18:46 | DRG 65 ==
LOC: ER 10:09 → ERHOLD 13:05 → 4TH 15:55 → OBSVTOIN 16:33
PROVIDERS: ADMIT Hospitalist; ATTEND Internal Medicine
DX: I63.89 Other cerebral infarction (principal); G81.91 Hemiplegia, unspecified affecting right dominant side; I69.354 Hemiplegia and hemiparesis following cerebral infarction affecting left non-dominant side; R29.701 NIHSS score 1; E11.40 Type 2 diabetes mellitus with diabetic neuropathy, unspecified; D64.9 Anemia, unspecified; E78.00 Pure hypercholesterolemia, unspecified; E66.9 Obesity, unspecified; I48.91 Unspecified atrial fibrillation; I10 Essential (primary) hypertension; F41.9 Anxiety disorder, unspecified; K21.9 Gastro-esophageal reflux disease without esophagitis; M51.37 Other intervertebral disc degeneration, lumbosacral region; Z68.35 Body mass index [BMI] 35.0-35.9, adult; N20.0 Calculus of kidney; R20.2 Paresthesia of skin
CPT/HCPCS: 36415; 70450; 70551; 72125; 72131; 80048; 80053; 80061; 82947; 83036; 83735; 84100; 84484; 85025; 92610; 93005; 93306; 93880; 97110; 97116; 97161; 97165; 97530; 99285; G0378; J1650; J2405; J3475; J7030

== ENCOUNTER 2023-03-30 13:24 | Inpatient (IN) | payer OTHER ==
[2023-04-02] MEDS ORDERED: ACETAMINOPHEN 500 MG TAB PO PRN (19:12)
[2023-04-02] MEDS ORDERED: BISACODYL 10 MG RECTAL SUPP PR PRN (19:26)
[2023-04-02] MEDS ORDERED: DOCUSATE NA/SENNA CONC 1 TAB PO PRN (19:26)
[2023-04-02] MEDS ORDERED: CALCIUM CARBONATE CHEW 500MG TAB PO PRN (19:26)
[2023-04-02] MEDS ORDERED: CYCLOBENZAPRINE 10 MG TAB PO PRN (19:26)
[2023-04-02] MEDS ORDERED: BISACODYL E.C. 5 MG TAB PO PRN (19:26)
[2023-04-02] MEDS ORDERED: SIMETHICONE 80 MG CHEWABLE TAB PO PRN (19:26)
[2023-04-02] MEDS ORDERED: POLYETHYL GLY 3350 17 GM/DOSE PO PRN (19:26)
[2023-04-02] MEDS ORDERED: MAGNESIUM HYDROXIDE 8% 30 ML PO PRN (19:26)
[2023-04-02] MEDS ORDERED: ONDANSETRON 4 MG (ODT) TAB PO PRN (19:26)
[2023-04-02] MEDS: LOSARTAN POTASSIUM 50 MG TABLET PO SCH (20:55)
[2023-04-02] MEDS: HYDROCODONE/APAP 5/325 MG TAB PO PRN (20:55)
[2023-04-02] MEDS: GABAPENTIN 300 MG CAP PO SCH (20:55)
[2023-04-02] MEDS: ATORVASTATIN 80 MG TAB PO SCH (20:56)
[2023-04-02] MEDS: INSULIN GLARGINE 100 UNIT/ML SQ SCH (20:56)
[2023-04-02] MEDS: AMLODIPINE 5 MG TAB PO SCH (20:56)
[2023-04-02] MEDS: hydrOXYzine HCL 25 MG TAB PO SCH (20:56)
[2023-04-02] MEDS ORDERED: GABAPENTIN 300 MG CAP PO SCH (21:00)
[2023-04-02] MEDS ORDERED: hydrOXYzine HCL 25 MG TAB PO SCH (21:00)
[2023-04-02] MEDS ORDERED: INSULIN GLARGINE 100 UNIT/ML SQ SCH (21:00)
[2023-04-02] MEDS ORDERED: GLUCAGON 1 MG/VIAL IM PRN (22:40)
[2023-04-02] MEDS ORDERED: D50W 25 GM/50 ML SYRINGE IV PRN (22:40)
[2023-04-02] MEDS ORDERED: D10W 125 ML IV PRN (22:46)
[2023-04-02 22:56] LABS: Urine Bacteria <20 /HPF (<20); Urine Bilirubin NEGATIVE (Negative); Urine Blood Negative (Negative); Urine Clarity Clear (Clear); Urine Color Light-Yellow (Yellow); Urine Crystals Unidentified Few /HPF (None Seen); Urine Glucose NEGATIVE (Negative); Urine Mucus Slight /HPF (None Seen); Urine Protein 1+ (Negative); Urine RBC <5 /HPF (None Seen); Urine Urobilinogen Normal (Normal)
[2023-04-03 04:51] LABS: Absolute Lymphocytes (CBC) 3.4 K/uL (0.7-4.9); Lymphocytes % 36.8 % (15.3-44.8); MCV 87.4 fL (80-100); MPV 7.4 fL (7.6-11.3); Platelets 253 thou/uL (152-406); RBC Red Blood Cell Count 4.35 M/uL (4.33-5.43)
[2023-04-03] MEDS: PANTOPRAZOLE 40MG TABLET PO SCH (05:03)
[2023-04-03] MEDS: METOPROLOL TAR 50 MG TAB PO SCH ×2 (05:03→17:04)
[2023-04-03 05:24] LABS: Albumin 3.2 g/dL (3.4-5.0); Magnesium 1.8 mg/dL (1.6-2.4); Potassium 4.6 mEq/L (3.5-5.1); Prealbumin 19.2 mg/dL (20-40)
[2023-04-03] MEDS: INSULIN REGULAR (HUMAN) 100 UNIT/ML SQ SCH ×4 (07:16→20:05)
[2023-04-03] MEDS: GABAPENTIN 300 MG CAP PO SCH ×3 (07:30→20:05)
[2023-04-03] MEDS: METFORMIN HCL 500 MG TAB PO SCH ×2 (07:30→17:04)
[2023-04-03] MEDS: LOSARTAN POTASSIUM 50 MG TABLET PO SCH ×2 (07:31→20:05)
[2023-04-03] MEDS: FLUOXETINE 20 MG CAP PO SCH (07:31)
[2023-04-03] MEDS: CLOPIDOGREL 75 MG TABLET PO SCH (07:31)
[2023-04-03] MEDS: ASPIRIN EC 81 MG TAB PO SCH (07:31)
[2023-04-03] MEDS: THIAMINE HCL 100 MG TABLET PO SCH (07:32)
[2023-04-03] MEDS: FOLIC ACID 1 MG TABLET PO SCH (07:32)
[2023-04-03] MEDS: hydrOXYzine HCL 25 MG TAB PO SCH ×4 (07:32→20:05)
[2023-04-03] MEDS: LIDOCAINE 4% PATCH TOP SCH ×2 (08:00→09:50)
[2023-04-03] MEDS: HYDROCODONE/APAP 5/325 MG TAB PO PRN ×2 (08:05→15:34)
[2023-04-03] MEDS: AMLODIPINE 5 MG TAB PO SCH ×2 (09:49→20:05)
[2023-04-03] MEDS: METHYL SALICYLATE/MENTHOL 3 OZ TUBE TOP PRN ×2 (11:21→20:04)
[2023-04-03] MEDS: ENOXAPARIN 40 MG/0.4 ML SQ SCH (17:04)
[2023-04-03] MEDS: INSULIN GLARGINE 100 UNIT/ML SQ SCH (20:04)
[2023-04-03] MEDS: ATORVASTATIN 80 MG TAB PO SCH (20:05)
--- NOTE | 2023-04-04 02:00 | HP ---
Date of Admission: 04/02/2023 Time Of Service: 2 p.m. Chief Complaint: "I had a stroke and weaker walking." History Of Present Illness: Mr. Almonte is a 57-year-old right-handed patient with history o f hypertension, neuropathy, depression, anxiety, prior right thalamic stroke with left-sided weakness , who comes in with paresthesias and more weakness of the left side of a couple of weeks duration whe n he was admitted to [facility] on 03/27/2023. His presentation was immediately precipitate d by a fall where again he lost coordination. His workup including a brain MRI did reveal a left bas al ganglia acute infarct measuring 13 x 15 mm, and because of that, he has had significant difficulty with mobilization, ambulation despite some preserved strength following the stroke. Given the patie nt's uncontrolled diabetes mellitus, hypertension, and need for adjusting his stroke risk factors, th e patient spent about 6 days in the acute care floor. He did also become somewhat debilitated follow ing that extended stay in addition to his incoordination related to the stroke. He was evaluated by the physical therapy and occupational therapy service and determined that he was functioning at a muc h lower level than his ability where he was independent previously prior to this stroke. He was ther efore determined to be appropriate candidate for inpatient rehabilitation and was admitted [facility] for physical, occupational, and as needed speech therapy. Past Medical History: As noted above. Allergies: IODINE. Medications: Tylenol 500 mg every 6 hours as needed, Norvasc 5 mg twice daily, aspirin 81 mg daily, Lipitor 80 mg at bedtime, Plavix 75 mg daily, Flexeril 10 mg 3 times daily as needed, Lovenox 40 mg s ubcutaneously daily, Prozac 40 mg daily, folic acid 1 mg daily, gabapentin 600 mg 3 times daily, Norc o as needed 5/325 every 6 hours. He is on insulin sliding scale, but also Semglee insulin 26 units a t bedtime. Cozaar 50 mg twice daily, melatonin 3 mg at bedtime as needed, Glucophage 1000 mg twice d aily, Lopressor 50 mg twice daily, simethicone 80 mg every 6 hours as needed, Senokot-S 2 at bedtime, Protonix 40 mg daily. Laboratory Studies: White blood cell count 9.6, hemoglobin 13.1, platelets 253. Sodium 138, potassi um 4.6, chloride 104, carbon dioxide 31, BUN 17, creatinine 0.81, glucose ranged from 122 to 194, julianne cium 9.0, magnesium 1.8, albumin 3.2, prealbumin 19.2. Urinalysis is normal. He did have urine toxi cology screen unremarkable. X-ray imaging as noted. Brain MRI on 03/27/2023 identified a 15 x 13 mm acute CVA in the posterior left basal ganglia. Lumbar spine CT scan on 03/27/2023 showed no acute o sseous abnormality or traumatic subluxation. There was canal stenosis and neuroforaminal narrowing, moderate to severe bilaterally at L5-S1 and [id number] canal stenosis at L4-5. Echocardiogram on 03/28/2023 showed ejection fraction 53% with a normal study. Review of Systems: Mr. Almonte does report some back pain for which he is on multiple medications. Some difficulty sleep ing and some myalgias and arthralgias and muscle spasms, for which he has medications including the m uscle relaxant. Next, he denies in terms of the review of systems any diarrhea, any gastrointestinal or genitourinary issues. No active psychiatric issues or other positives on systems review. Physical Examination: Vital Signs: Blood pressure 132/83, pulse 80, respiratory rate 16, temperature 97.0, oxygen saturati on 99% on room air. General: Mr. Almonte is resting comfortably in bed, beginning to get ready for physical therapy. HEENT: He has poor dentition. Otherwise, he is normocephalic, atraumatic. He does have an obese marisol dy habitus. Neurologic: His cranial nerve exam shows no obvious focal deficits despite the stroke. His neurolog ical examination does show some incoordination and weakness in the left upper and lower extremities. He does have an ataxic wide-based unsteady gait. Decreased sensation in left compared to right side upper and lower extremities. Otherwise, has obese abdomen. No significant edema in the extremities . Current Level Of Functioning: Currently independent for eating, oral hygiene. Setup assistance for toilet hygiene, bathing, upper body dressing. Moderate assist for lower body dressing and donning an d doffing shoes. Rolling [id number] moderate assistance. Sitting to stand and sitting to lying m oderate assistance. Toileting moderate assistance. Ambulation moderate assistance. He did require moderate assistance to walk 120 feet with Rollator. Rehab And Medical Assessment And Plan: Mr. Almonte is admitted to the rehabilitation unit with an imp airment category of 01 stroke. His impairment group code is 01.2, right body involvement and left br ain. His etiologic diagnosis is posterior left basal ganglia stroke. His comorbidities include prior stroke, decrease in physical functioning, debility, diabetes mellitus , hypertension, obesity, right-sided hemiparesis. Plan: 1.He will have physical, occupational, and speech therapy for 3-1/2 hours, 5 of 7 days. 2.He will have continued all of his comorbid condition medications including aspirin and Plavix for stroke risk reduction. He will have Lipitor for dyslipidemia, [place] as needed for pain, gabapentin a lso for his neuropathic pain. Continue Atarax for any allergic reaction, melatonin for insomnia. Fo r his diabetes, continue his Semglee insulin and Glucophage. For DVT prophylaxis, continue Lovenox i njections. Continue simethicone for gas. Continue with Senokot-S for constipation and thiamine for any risk of alcohol related withdrawal symptoms, which patient has no significant evidence of that go ing on at this point. Impact Of Comorbidities: His prior stroke and his current stroke. They are working together to make it difficult for him to recover very easily, although he does have preserved strength and so with hi s incoordination from basal ganglia stroke, he should be able to do very well as he has power, but wi ll then require refinement of coordination, precision and timing in movements such as gait and balanc e coordination will continue to improve, which he is actually beginning to do as a therapist is kellee chamorro with him. Blood sugars to be managed to control blood pressures also. Continue again for his dys lipidemia management. Continue management of back pain given the stenosis as mentioned above. Rehab Specific Plan: 1.Mr. Almonte will have physical, occupational, speech therapy as needed for 3-1/2 hours, 5 of 7 days . 2.He will have fci throughout the day to address all his pain needs, medications, and as sessments of vital signs, sleep issues, and risk of infection and blood draws as appropriate. 3.He will have physician evaluation and management on a daily basis to manage all of his comorbid co nditions and his rehab needs. Mr. Almonte has a good understanding of his admission and his discharge process in the rehabilitation unit. He has a potential to do very well and will require likely physical, occupational, and speech therapy. In addition, if need be services from the cardiology service, respiratory service, nutritio n service will be consulted. Given his complex medical condition and risk of further medical complic ations, rehabilitation cannot be safely or effectively provided at a lower level facility such as [facility]. Barriers To Discharge: Currently working on blood sugars and correcting goals; however, that can be overcome as we work hard with him, checking on blood sugars daily. Next also management of his blood pressure, which is a risk factor for stroke and his dyslipidemia. He does have poor dentition and i s at risk of infection there. We will have Speech Therapy to work with him oral hygiene and other mi tigating factors as he has had a stroke, he is also at risk for aspiration pneumonia and they will wo rk with him there. Estimated Length Of Stay: About 10 to 12 days. Disposition: Home with family. Prognosis: Good. Rehabilitation Goals: 1.Become independent with all of his speech and swallowing. 2.Independent with upper and lower body dressing, transferring, toileting, showering. 3.Independently ambulating 500 feet with a rolling walker. 4.Independently going up and down 20 steps. 5.Independent with all cognitive functioning. 6.All his medical management will be optimized. The above goals were reviewed with the patient and he is in agreement. By signing this document, I acknowledge that I have personally performed a full physical examination on Mr. Liu Almonte no later than 24 hours after his admission to the inpatient rehabilitation facili and I determined that he is able to tolerate the above course of treatment at an intensive level f or reasonable period of time. A detailed individualized plan of care for him will be completed by aviva jamison day 4 based on the preadmission screen, history and physical, and therapy evaluations. LOAN/DRE Voice ID: [id number]
[2023-04-04] MEDS: PANTOPRAZOLE 40MG TABLET PO SCH (05:26)
[2023-04-04] MEDS: METOPROLOL TAR 50 MG TAB PO SCH ×2 (05:27→17:01)
[2023-04-04] MEDS: INSULIN REGULAR (HUMAN) 100 UNIT/ML SQ SCH ×4 (07:30→19:03)
[2023-04-04] MEDS: METHYL SALICYLATE/MENTHOL 3 OZ TUBE TOP PRN (07:33)
[2023-04-04] MEDS: HYDROCODONE/APAP 5/325 MG TAB PO PRN ×3 (07:33→22:01)
[2023-04-04] MEDS: GABAPENTIN 300 MG CAP PO SCH ×3 (07:37→19:03)
[2023-04-04] MEDS: METFORMIN HCL 500 MG TAB PO SCH ×2 (07:37→17:00)
[2023-04-04] MEDS: FOLIC ACID 1 MG TABLET PO SCH (07:38)
[2023-04-04] MEDS: hydrOXYzine HCL 25 MG TAB PO SCH ×4 (07:38→19:03)
[2023-04-04] MEDS: FLUOXETINE 20 MG CAP PO SCH (07:38)
[2023-04-04] MEDS: THIAMINE HCL 100 MG TABLET PO SCH (07:38)
[2023-04-04] MEDS: LOSARTAN POTASSIUM 50 MG TABLET PO SCH ×2 (07:38→19:03)
[2023-04-04] MEDS: ASPIRIN EC 81 MG TAB PO SCH (07:38)
[2023-04-04] MEDS: CLOPIDOGREL 75 MG TABLET PO SCH (07:39)
[2023-04-04] MEDS: AMLODIPINE 5 MG TAB PO SCH ×2 (10:16→19:02)
[2023-04-04] MEDS: ENOXAPARIN 40 MG/0.4 ML SQ SCH (17:00)
[2023-04-04] MEDS: ATORVASTATIN 80 MG TAB PO SCH (19:03)
[2023-04-04] MEDS: INSULIN GLARGINE 100 UNIT/ML SQ SCH (19:04)
[2023-04-04] MEDS ORDERED: LOPERAMIDE HCL 2 MG CAPSULE PO PRN (21:50)
[2023-04-05 03:55] LABS: Absolute Lymphocytes (CBC) 3.7 K/uL (0.7-4.9); Hematocrit 38.3 % (39.6-49.0); Lymphocytes % 33.2 % (15.3-44.8); MCV 87.4 fL (80-100); Platelets 263 thou/uL (152-406); RBC Red Blood Cell Count 4.38 M/uL (4.33-5.43)
[2023-04-05 04:11] LABS: Albumin 3.3 g/dL (3.4-5.0); Magnesium 1.7 mg/dL (1.6-2.4); Potassium 3.9 mEq/L (3.5-5.1); Prealbumin 20.7 mg/dL (20-40)
[2023-04-05] MEDS: METOPROLOL TAR 50 MG TAB PO SCH ×2 (05:33→17:18)
[2023-04-05] MEDS: PANTOPRAZOLE 40MG TABLET PO SCH (06:34)
[2023-04-05] MEDS: METHYL SALICYLATE/MENTHOL 3 OZ TUBE TOP PRN (07:20)
[2023-04-05] MEDS: INSULIN REGULAR (HUMAN) 100 UNIT/ML SQ SCH ×4 (07:20→19:58)
[2023-04-05] MEDS: FLUOXETINE 20 MG CAP PO SCH (07:21)
[2023-04-05] MEDS: METFORMIN HCL 500 MG TAB PO SCH ×2 (07:21→17:17)
[2023-04-05] MEDS: ASPIRIN EC 81 MG TAB PO SCH (07:21)
[2023-04-05] MEDS: GABAPENTIN 300 MG CAP PO SCH ×3 (07:21→19:57)
[2023-04-05] MEDS: LOSARTAN POTASSIUM 50 MG TABLET PO SCH ×2 (07:21→19:57)
[2023-04-05] MEDS: hydrOXYzine HCL 25 MG TAB PO SCH ×4 (07:22→19:57)
[2023-04-05] MEDS: THIAMINE HCL 100 MG TABLET PO SCH (07:22)
[2023-04-05] MEDS: FOLIC ACID 1 MG TABLET PO SCH (07:22)
[2023-04-05] MEDS: CLOPIDOGREL 75 MG TABLET PO SCH (07:22)
[2023-04-05] MEDS: HYDROCODONE/APAP 5/325 MG TAB PO PRN ×2 (07:43→17:18)
[2023-04-05] MEDS: AMLODIPINE 5 MG TAB PO SCH ×2 (08:59→19:57)
[2023-04-05] MEDS: ENOXAPARIN 40 MG/0.4 ML SQ SCH (17:17)
[2023-04-05] MEDS: INSULIN GLARGINE 100 UNIT/ML SQ SCH (19:56)
[2023-04-05] MEDS: ATORVASTATIN 80 MG TAB PO SCH (19:57)
--- NOTE | 2023-04-05 22:42 | PN ---
Date of Progress Note: 04/05/2023 [id number] progress note visit. Time Of Service: 1:00 p.m. Subjective: Mr. Almonte is resting in his room. He denies any significant new problems. He does hav e some pain in his lower back, which is ongoing, and there are analgesic-type medications from topica ls, neuromodulators, and the narcotic medications used sparingly that are managing his pain. His big issue is a stroke affecting his coordination, gait and balance, and he says he is actually making so me strides with that. Review of Systems: Again, some back pain. Otherwise, no fevers, chills. There are mild myalgias and some arthralgias. No rash. No significant headaches. No genitourinary or gastrointestinal issues. No active dermato logical issues. Physical Examination: Vital Signs: Blood pressure 152/88, pulse of 74, respiratory rate 18, temperature 97.1, oxygen satur ation 97%. Weight 206 pounds. Height 5 feet 4 inches. BMI 35.4. General: Mr. Almonte is resting comfortably in his bed. HEENT: He has very poor dentition. Otherwise, he is normocephalic and atraumatic. Sclerae are anic teric. Oropharynx is pink and moist. Abdomen: Obese, soft. Extremities: Show no significant edema, cyanosis, or clubbing. Neurological: Otherwise, neurologically, he has some dysmetria with involvement of his right upper a nd lower extremities due to his stroke and some mild decrease in strength as well. His gait is ataxi c, tends to fall towards the right. Laboratory Studies: White blood cell count did go up from 9.3 on the 10th to 11.1, today. Hemoglobi n is stable at 13.1, platelets normal at 263. Blood glucose ranged from 105 to 182. Sodium, potassi um, chloride all normal. Carbon dioxide normal. BUN slightly elevated to 20, creatinine normal at 0 .76, prealbumin normal at 20.3, albumin slightly low at 3.3, magnesium 1.7, and calcium 8.5. Urinaly sis is unremarkable except 1+ total protein. X-ray/imaging: No x-rays or imaging. Medications: Tylenol Extra Strength 500 mg every 6 hours; [place] 5/325 every 6 hours as needed; Norva sc 5 mg twice daily; aspirin 81 mg daily; Lipitor 80 mg at bedtime; Dulcolax 10 mg per rectum for con stipation as needed; Tums 500 mg four times daily; Plavix 75 mg daily; Flexeril 10 mg three times сергей ly; Lovenox 40 mg subcutaneously daily; Prozac 40 mg daily; folic acid 1 mg daily; gabapentin 600 mg three times daily; Atarax 25 mg four times daily; Semglee insulin 23 units at bedtime; Imodium 2 mg e very 4 hours as needed; Cozaar 50 mg twice daily; milk of magnesia 30 mL daily as needed for constipa tion; melatonin 3 mg at bedtime; Glucophage 1000 mg twice daily; Lopressor 50 mg twice daily; Zofran 4 mg every six hours as needed; thiamine 100 mg daily; simethicone 80 mg every six hours as needed. Current Functional Status: Today, with physical therapy, he did ambulate 250 feet, another 150 feet with standby assistance using a rolling walker. He ascended and descended 15 steps with contact guar d assistance using bilateral handrails. With Occupational Therapy, independent with edge of bed to w heelchair and stand pivot transfer x2. Self-propel a wheelchair from room to elevator with supervisi on. He did have some fatigue during his session. In the afternoon, he ambulated about 250 feet thre e times, 100 feet twice, and 320 feet with a rolling walker and contact guard assistance and was mini mum assistance on the last 320 feet. With his occupational therapy, again going from bathroom to albertina m with a Rollator, is independent. He is not receiving speech therapy as he is doing very well witho ut issues of swallowing or cognitive deficits. Progress Towards Rehabilitation Goals: Mr. Almonte is making excellent progress toward his goals of b ecoming independent with upper body dressing, transferring, toileting, showering, ambulating 250 feet with modified independence to independence and up and down 15 steps with modified independence to in dependence. In addition, he will continue to perform cognitive functioning independently. Assessment: Mr. Almonte is a 57-year-old patient in the rehabilitation unit with a stroke, left brain and right body involvement and his left basal ganglia. He has diabetes mellitus, dyslipidemia, hype rtension, and class II obesity and right-sided hemiparesis. He has difficulty with sleep and insomni a and has chronic lumbar radiculopathy and dyslipidemia. Plan: 1.He will have physical and occupational therapy for 3 hours, 5 out of 7 days. 2.He will continue [place], gabapentin 600 mg three times a day for his lumbar radicular pain. 3.Continue Glucophage, a mild insulin sliding scale, and Semglee insulin 26 units at bedtime for ghazala betes mellitus. 4.Prozac 40 mg daily for depression. 5.Lovenox 40 mg subcutaneously daily for DVT prophylaxis. 6.Flexeril will be continued for muscle spasms. 7.Plavix 75 mg daily along with aspirin 81 mg daily for stroke risk reduction. 8.Lipitor for dyslipidemia. 9.Amlodipine 5 mg twice daily for hypertension along with Lopressor 50 mg twice daily. 10.Continue thiamine 100 mg daily for any form of withdrawal from potential alcohol use. Comorbidities That Continue To Impact The Rehabilitation Process: Currently, his multiple comorbids are stably managed and do not negatively impact his rehabilitation. LOAN/DRE Voice ID: [id number] Report ID: [id number]
[2023-04-06] MEDS: METOPROLOL TAR 50 MG TAB PO SCH ×2 (05:08→16:56)
[2023-04-06] MEDS: PANTOPRAZOLE 40MG TABLET PO SCH (05:46)
[2023-04-06] MEDS: INSULIN REGULAR (HUMAN) 100 UNIT/ML SQ SCH ×4 (07:20→19:45)
[2023-04-06] MEDS: THIAMINE HCL 100 MG TABLET PO SCH (07:21)
[2023-04-06] MEDS: ASPIRIN EC 81 MG TAB PO SCH (07:21)
[2023-04-06] MEDS: METFORMIN HCL 500 MG TAB PO SCH ×2 (07:21→16:57)
[2023-04-06] MEDS: LOSARTAN POTASSIUM 50 MG TABLET PO SCH ×2 (07:21→19:43)
[2023-04-06] MEDS: METHYL SALICYLATE/MENTHOL 3 OZ TUBE TOP PRN (07:21)
[2023-04-06] MEDS: FLUOXETINE 20 MG CAP PO SCH (07:22)
[2023-04-06] MEDS: FOLIC ACID 1 MG TABLET PO SCH (07:22)
[2023-04-06] MEDS: GABAPENTIN 300 MG CAP PO SCH ×3 (07:22→19:44)
[2023-04-06] MEDS: hydrOXYzine HCL 25 MG TAB PO SCH ×4 (07:22→19:44)
[2023-04-06] MEDS: CLOPIDOGREL 75 MG TABLET PO SCH (07:22)
[2023-04-06] MEDS: HYDROCODONE/APAP 5/325 MG TAB PO PRN ×2 (07:23→17:11)
[2023-04-06] MEDS: AMLODIPINE 5 MG TAB PO SCH ×2 (09:49→19:43)
--- NOTE | 2023-04-06 13:42 | P.RH.PN ---
Estimated Length of Stay: 9 Expected Discharge Date: 04/09/23 Discharge Disposition Plan: Home Family Support: Yes [employer] Goal: Mobility, Transfers, Self Care Vital Signs: Last Vital Signs Temp 97.4 F 04/06/23 08:00 Pulse 79 04/06/23 09:49 Resp 18 04/06/23 08:23 BP 136/60 04/06/23 09:49 Pulse Ox 96 04/06/23 08:23 Laboratory: Laboratory Last Values WBC 11.10 thou/uL (4.3-10.9) H 04/05/23 03:21 RBC 4.38 M/uL (4.33-5.43) 04/05/23 03:21 Hgb 13.1 g/dL (13.6-17.9) L 04/05/23 03:21 Hct 38.3 % (39.6-49.0) L 04/05/23 03:21 MCV 87.4 fL (80-100) 04/05/23 03:21 MCH 29.8 pg (27.0-35.0) 04/05/23 03:21 MCHC 34.1 g/dL (32.0-36.0) 04/05/23 03:21 RDW 12.7 % (12.1-15.2) 04/05/23 03:21 Plt Count 263 thou/uL (152-406) 04/05/23 03:21 MPV 8.0 fL (7.6-11.3) 04/05/23 03:21 Neutrophils % 57.5 % (41.7-73.7) 04/05/23 03:21 Lymphocytes % 33.2 % (15.3-44.8) 04/05/23 03:21 Monocytes % 6.6 % (3.3-12.3) 04/05/23 03:21 Eosinophils % 2.0 % (0-4.4) 04/05/23 03:21 Basophils % 0.7 % (0-1.3) 04/05/23 03:21 Absolute Neutrophils 6.4 K/uL (1.8-8.0) 04/05/23 03:21 Absolute Lymphocytes 3.7 K/uL (0.7-4.9) 04/05/23 03:21 Absolute Monocytes 0.7 K/uL (0.1-1.3) 04/05/23 03:21 Absolute Eosinophils 0.2 K/uL (0-0.5) 04/05/23 03:21 Absolute Basophils 0.1 K/uL (0-0.5) 04/05/23 03:21 Sodium 137 mEq/L (136-145) 04/05/23 03:21 Potassium 3.9 mEq/L (3.5-5.1) 04/05/23 03:21 Chloride 104 mEq/L (98-107) 04/05/23 03:21 Carbon Dioxide 27 mEq/L (21-32) 04/05/23 03:21 Anion Gap 9.9 mEq/L (5.0-15.0) 04/05/23 03:21 BUN 20 mg/dL (7-18) H 04/05/23 03:21 Creatinine 0.76 mg/dL (0.70-1.30) 04/05/23 03:21 Est GFR (CKD-EPI) 104 ml/min (=/>90) 04/05/23 03:21 Glucose 145 mg/dL (74-106) H 04/05/23 03:21 POC Glucose 143 mg/dL (65-120) H 04/06/23 11:33 Calcium 8.5 mg/dL (8.5-10.1) 04/05/23 03:21 Magnesium 1.7 mg/dL (1.6-2.4) 04/05/23 03:21 Albumin 3.3 g/dL (3.4-5.0) L 04/05/23 03:21 Prealbumin 20.7 mg/dL (20-40) 04/05/23 03:21 Urine Color Light-yellow (Yellow) 04/02/23 22:25 Urine Clarity Clear (Clear) 04/02/23 22:25 Urine pH 6.0 (5.0-7.0) 04/02/23 22:25 Ur Specific [place] 1.020 (1.005-1.030) 04/02/23 22:25 Glucose (UA)(Auto) Negative (Negative) 04/02/23 22:25 Urine Ketones Negative (Negative) 04/02/23 22:25 Urine Blood Negative (Negative) 04/02/23 22:25 Urine Nitrite Negative (Negative) 04/02/23 22:25 Urine Bilirubin Negative (Negative) 04/02/23 22:25 Urine Urobilinogen Normal (Normal) 04/02/23 22:25 Ur Leukocyte Esterase Negative [place]/uL (Negative) 04/02/23 22:25 Urine RBC <5 /HPF (None Seen) 04/02/23 22:25 Urine WBC <5 /HPF (<5) 04/02/23 22:25 Ur Squamous Epith Cells <5 /HPF (None Seen) 04/02/23 22:25 U Non-Squamous Epi Cells <5 /HPF (None Seen) 04/02/23 22:25 Unidentified Crystals Few /HPF (None Seen) 04/02/23 22:25 Urine Bacteria <20 /HPF (<20) 04/02/23 22:25 Hyaline Casts 0-5 /LPF (None Seen) 04/02/23 22:25 Urine Mucus Slight /HPF (None Seen) 04/02/23 22:25 Urine Culture Reflexed Not needed 04/02/23 22:25 Urine Total Protein 1+ (Negative) H 04/02/23 22:25 Weight: 206 lb Wound Present: No Closed Surgical Incision Present: No Negative Pressure Wound Therapy Present: No Physician Update: Labs reviewed and are stable. Making good progress recovering his coordination, strength and endurance. 250' with SBA using rollator, up and down 15 steps. He will be discharged next Sunday. Summary: Patient's care plan and detention goals have been reviewed and revised as necessary. Please see the Rehabilitation Signature page for all necessary signatures.
[2023-04-06] MEDS: ENOXAPARIN 40 MG/0.4 ML SQ SCH (16:56)
[2023-04-06] MEDS: ATORVASTATIN 80 MG TAB PO SCH (19:44)
[2023-04-06] MEDS: INSULIN GLARGINE 100 UNIT/ML SQ SCH (20:19)
[2023-04-06] MEDS: MELATONIN 3 MG TABLET PO PRN (20:19)
[2023-04-06] MEDS: clonazePAM 0.5 MG TAB PO PRN (21:39)
[2023-04-07] MEDS: METOPROLOL TAR 50 MG TAB PO SCH ×2 (05:11→17:22)
[2023-04-07] MEDS: HYDROCODONE/APAP 5/325 MG TAB PO PRN ×3 (05:11→17:02)
[2023-04-07] MEDS: PANTOPRAZOLE 40MG TABLET PO SCH (05:11)
[2023-04-07] MEDS: CLOPIDOGREL 75 MG TABLET PO SCH (07:20)
[2023-04-07] MEDS: METHYL SALICYLATE/MENTHOL 3 OZ TUBE TOP PRN ×2 (07:20→21:07)
[2023-04-07] MEDS: ASPIRIN EC 81 MG TAB PO SCH (07:20)
[2023-04-07] MEDS: LOSARTAN POTASSIUM 50 MG TABLET PO SCH ×2 (07:20→21:07)
[2023-04-07] MEDS: GABAPENTIN 300 MG CAP PO SCH ×4 (07:20→21:08)
[2023-04-07] MEDS: FLUOXETINE 20 MG CAP PO SCH (07:21)
[2023-04-07] MEDS: hydrOXYzine HCL 25 MG TAB PO SCH ×4 (07:21→21:08)
[2023-04-07] MEDS: FOLIC ACID 1 MG TABLET PO SCH (07:21)
[2023-04-07] MEDS: METFORMIN HCL 500 MG TAB PO SCH ×2 (07:21→17:04)
[2023-04-07] MEDS: THIAMINE HCL 100 MG TABLET PO SCH (07:21)
[2023-04-07] MEDS: INSULIN REGULAR (HUMAN) 100 UNIT/ML SQ SCH ×4 (07:23→21:00)
[2023-04-07] MEDS: AMLODIPINE 5 MG TAB PO SCH ×2 (09:41→21:07)
[2023-04-07] MEDS: ENOXAPARIN 40 MG/0.4 ML SQ SCH (17:04)
[2023-04-07] MEDS: INSULIN GLARGINE 100 UNIT/ML SQ SCH (21:06)
[2023-04-07] MEDS: MELATONIN 3 MG TABLET PO PRN (21:07)
[2023-04-07] MEDS: ATORVASTATIN 80 MG TAB PO SCH (21:07)
[2023-04-08] MEDS: HYDROCODONE/APAP 5/325 MG TAB PO PRN ×2 (01:23→08:55)
[2023-04-08] MEDS: PANTOPRAZOLE 40MG TABLET PO SCH (05:35)
[2023-04-08] MEDS: METOPROLOL TAR 50 MG TAB PO SCH ×2 (05:35→17:36)
[2023-04-08] MEDS: INSULIN REGULAR (HUMAN) 100 UNIT/ML SQ SCH ×4 (07:00→20:04)
[2023-04-08] MEDS: GABAPENTIN 300 MG CAP PO SCH ×3 (08:50→20:03)
[2023-04-08] MEDS: FLUOXETINE 20 MG CAP PO SCH (08:51)
[2023-04-08] MEDS: CLOPIDOGREL 75 MG TABLET PO SCH (08:51)
[2023-04-08] MEDS: LOSARTAN POTASSIUM 50 MG TABLET PO SCH ×2 (08:52→20:04)
[2023-04-08] MEDS: FOLIC ACID 1 MG TABLET PO SCH (08:52)
[2023-04-08] MEDS: THIAMINE HCL 100 MG TABLET PO SCH (08:52)
[2023-04-08] MEDS: METFORMIN HCL 500 MG TAB PO SCH ×2 (08:52→17:19)
[2023-04-08] MEDS: hydrOXYzine HCL 25 MG TAB PO SCH ×4 (08:53→20:04)
[2023-04-08] MEDS: AMLODIPINE 5 MG TAB PO SCH ×2 (08:53→20:03)
[2023-04-08] MEDS: ASPIRIN EC 81 MG TAB PO SCH (08:54)
[2023-04-08] MEDS: ENOXAPARIN 40 MG/0.4 ML SQ SCH (17:18)
[2023-04-08] MEDS: METHYL SALICYLATE/MENTHOL 3 OZ TUBE TOP PRN (20:03)
[2023-04-08] MEDS: INSULIN GLARGINE 100 UNIT/ML SQ SCH (20:03)
[2023-04-08] MEDS: ATORVASTATIN 80 MG TAB PO SCH (20:03)
[2023-04-08] MEDS: MELATONIN 3 MG TABLET PO PRN (20:04)
[2023-04-08] MEDS: clonazePAM 0.5 MG TAB PO PRN (20:24)
--- NOTE | 2023-04-08 21:31 | PN ---
Date of Progress Note: 04/08/2023 Time Of Service: 4:30 p.m. Subjective: Mr. Almonte is resting in bed. He did say he was a little unhappy about his therapy on F riday, because the therapist asked him to get up from the floor, but he could not hold onto the sofa or couch. He said that exhausted him and at that point, he felt that he was becoming even weaker and thought he may have had another stroke. The nurses did evaluate him and thought he was anxious and he did receive some antianxiety medications. His symptoms did resolve and he returned back to his [facility] within a few hours. At the time of my evaluation, he did not have those symptoms, but he was not very happy that he felt the stress and anxiety perhaps triggered those events. Review of Systems: No fevers, chills, nausea, vomiting, myalgias, arthralgias, rash, headache, weight change. Does have chronic back pain and is worried about going home and requiring some pain medications to go home. Physical Examination: Vital Signs: Blood pressure 124/62, pulse of 78, respiratory rate 16, temperature 97.3, oxygen satur ation 97%. General: Mr. Almonte is sitting inside the bed. HEENT: He has very poor dentition as noted. Otherwise, normocephalic, atraumatic. Sclerae anicteri c. Oropharynx pink, moist. Neck: Supple. Chest: Clear. Heart: Regular. Neurological: His strength in the right side is slightly weaker with incoordination. He does have a left basal ganglia stroke which more impacted coordination and strength. Assessment: He has diabetes mellitus, dyslipidemia, hypertension, class 2 obesity and again the righ t-sided hemiparesis which is improving. Also, insomnia, and significant chronic lumbar radicular juan jose n. Plan: 1.Continue physical and occupational therapy for 3 hours a day, 5 out of 7 days. 2.Pain is mitigated by neuromodulator, gabapentin along with [place] and a pain patch as needed. 3.For his diabetes mellitus, Semglee insulin continued along with Glucophage. 4.For depression, Prozac. 5.For DVT prophylaxis, Lovenox 40 mg subcutaneously daily, was switched to Eliquis 2.5 mg daily. 6.Flexeril for muscle spasms. 7.For stroke risk reduction, continue aspirin 81 mg and Plavix 75 mg daily. 8.Continue Lipitor for dyslipidemia. 9.For antihypertension medications, he is on Lopressor, amlodipine. He also has thiamine for alcoho l withdrawal, which is very unlikely at this point. Comorbidities That Continue To Impact The Rehabilitation Process: At this point, he does have signif icant pain in the back and is mitigated by multiple medication modalities. He was a little bit about therapy, but is now doing much better and that is not negatively impacting his rehabilita tion. LOAN/DRE Voice ID: [id number] Report ID: [id number]
[2023-04-09] MEDS: METOPROLOL TAR 50 MG TAB PO SCH ×2 (05:29→17:27)
[2023-04-09] MEDS: PANTOPRAZOLE 40MG TABLET PO SCH (05:29)
[2023-04-09] MEDS: INSULIN REGULAR (HUMAN) 100 UNIT/ML SQ SCH ×4 (07:30→20:31)
[2023-04-09] MEDS: HYDROCODONE/APAP 5/325 MG TAB PO PRN ×2 (07:50→19:30)
[2023-04-09] MEDS: METHYL SALICYLATE/MENTHOL 3 OZ TUBE TOP PRN (07:51)
[2023-04-09] MEDS: hydrOXYzine HCL 25 MG TAB PO SCH ×4 (07:51→19:30)
[2023-04-09] MEDS: GABAPENTIN 300 MG CAP PO SCH ×3 (07:52→19:30)
[2023-04-09] MEDS: LOSARTAN POTASSIUM 50 MG TABLET PO SCH ×2 (07:52→19:30)
[2023-04-09] MEDS: CLOPIDOGREL 75 MG TABLET PO SCH (07:52)
[2023-04-09] MEDS: FLUOXETINE 20 MG CAP PO SCH (07:52)
[2023-04-09] MEDS: FOLIC ACID 1 MG TABLET PO SCH (07:52)
[2023-04-09] MEDS: THIAMINE HCL 100 MG TABLET PO SCH (07:52)
[2023-04-09] MEDS: ASPIRIN EC 81 MG TAB PO SCH (07:53)
[2023-04-09] MEDS: METFORMIN HCL 500 MG TAB PO SCH ×2 (07:53→17:27)
[2023-04-09] MEDS: AMLODIPINE 5 MG TAB PO SCH ×2 (10:46→19:30)
[2023-04-09] MEDS: ENOXAPARIN 40 MG/0.4 ML SQ SCH (17:27)
[2023-04-09] MEDS: ATORVASTATIN 80 MG TAB PO SCH (19:30)
[2023-04-09] MEDS: MELATONIN 3 MG TABLET PO PRN (19:32)
[2023-04-09] MEDS: INSULIN GLARGINE 100 UNIT/ML SQ SCH (20:31)
--- NOTE | 2023-04-09 23:55 | PN ---
Date of Progress Note: 04/09/2023 Time Of Service: 01:35 p.m. Subjective: Mr. Almonte is resting in his bed. He had a much better day today than yesterday. As no denise, he had some issues trying to get up off the floor. No new complaints. Review of Systems: No fevers, chills, nausea, vomiting, myalgias, arthralgias, still had incoordination related to strok e. Physical Examination: Vital Signs: Blood pressure 121/74, pulse 79, respiratory rate of 16, temperature 97.2, oxygen satur ation 94% on room air. General: Mr. Almotne again is resting in bed. He is happy to begin, be ready for discharge in the mo rning, and continue outpatient physical therapy. He has incoordination in upper and lower extremitie s and ataxic gait. Laboratory Studies: Blood sugars ranged from 99-133. X-ray/imaging: No new x-rays or imaging. Medications: Medications have been reviewed and remained unchanged. Current Functional Status: Today, he ambulated 350 feet twice and 250 feet once with independence. He ascended and descended 20 steps with bilateral handrails independently. Xuh-da-jpuna done indepen dently. With occupational therapy, he mobilized from bed to chair to do toileting. He did bathing, toilet hygiene, lower and upper body dressing all independently. Did laundry all independently. Progress Towards Rehabilitation Goals: Mr. Almonte has met all of his rehabilitation goals of becomin g independent with upper and lower body dressing, transferring, toileting, showering, mobilizing 250 feet, up and down 20 steps with modified independence. Also cognitive functioning done with modified independence. Assessment And Plan: Mr. Almonte is a 57-year-old patient in the rehabilitation unit with a right abdoul ed mild hemiparesis after his stroke in the left brain. He has diabetes, dyslipidemia, hypertension, has obesity and lumbar radiculopathy, on chronic pain medications. He has done very well and is man dy for discharge to do outpatient physical therapy. Plan: 1.Continue with physical and occupational therapy until discharge in the morning. 2.Continue with all of his medications including gabapentin, [place]. Continue with his diabetes ly itus medication including Semglee and Glucophage. Continue with DVT prophylaxis while in hospital, daphne polo is Eliquis 2.5 mg twice daily. Continue with Flexeril for muscle spasms and again discharge in the morning. Comorbidities That Continue To Impact Rehabilitation: All his comorbidities are stably managed and d o not negatively impact his rehabilitation. MICAELA Voice ID: [id number] Report ID: [id number]
[2023-04-10] MEDS: METOPROLOL TAR 50 MG TAB PO SCH (05:49)
[2023-04-10] MEDS: PANTOPRAZOLE 40MG TABLET PO SCH (05:50)
[2023-04-10] MEDS: INSULIN REGULAR (HUMAN) 100 UNIT/ML SQ SCH ×2 (07:30→11:30)
[2023-04-10 07:34] VITALS: TEMP 96
[2023-04-10] MEDS: METHYL SALICYLATE/MENTHOL 3 OZ TUBE TOP PRN (07:49)
[2023-04-10] MEDS: GABAPENTIN 300 MG CAP PO SCH (07:49)
[2023-04-10] MEDS: FLUOXETINE 20 MG CAP PO SCH (07:49)
[2023-04-10] MEDS: METFORMIN HCL 500 MG TAB PO SCH (07:49)
[2023-04-10] MEDS: CLOPIDOGREL 75 MG TABLET PO SCH (07:49)
[2023-04-10] MEDS: FOLIC ACID 1 MG TABLET PO SCH (07:50)
[2023-04-10] MEDS: hydrOXYzine HCL 25 MG TAB PO SCH (07:50)
[2023-04-10] MEDS: ASPIRIN EC 81 MG TAB PO SCH (07:50)
[2023-04-10] MEDS: THIAMINE HCL 100 MG TABLET PO SCH (07:50)
[2023-04-10] MEDS: LOSARTAN POTASSIUM 50 MG TABLET PO SCH (07:50)
[2023-04-10] MEDS: HYDROCODONE/APAP 5/325 MG TAB PO PRN (08:15)
[2023-04-10 10:48] VITALS: BP 135/76
[2023-04-10] MEDS: AMLODIPINE 5 MG TAB PO SCH (10:48)
== END 2023-04-10 11:50 | disposition home or self-care (01) | DRG 57 ==
LOC: 5TH 04-02 18:45
PROVIDERS: ADMIT Psychiatry & Neurology Neurology with Special Qualifications in Child Neurology; ATTEND Psychiatry & Neurology Neurology with Special Qualifications in Child Neurology
DX: I69.351 Hemiplegia and hemiparesis following cerebral infarction affecting right dominant side (principal); M79.10 Myalgia, unspecified site; R53.81 Other malaise; I10 Essential (primary) hypertension; E78.5 Hyperlipidemia, unspecified; E11.65 Type 2 diabetes mellitus with hyperglycemia; G62.9 Polyneuropathy, unspecified; F32.A Depression, unspecified; F41.9 Anxiety disorder, unspecified; M25.50 Pain in unspecified joint; E66.9 Obesity, unspecified; G47.00 Insomnia, unspecified; M54.16 Radiculopathy, lumbar region; Z68.35 Body mass index [BMI] 35.0-35.9, adult
CPT/HCPCS: 36415; 80048; 81001; 82040; 82947; 83735; 84134; 85025; 87086; 87088; 97110; 97112; 97116; 97162; 97165; 97530; 97542; J1650; J2001

== ENCOUNTER 2023-09-25 15:57 | Observation (INO) | payer OTHER ==
--- NOTE | 2023-09-25 16:48 | RAD REPORT ---
EXAM DESCRIPTION: CT - Head Brain Wo Cont - 09/25/2023 4:38 pm CLINICAL HISTORY: STROKE ALERT Headache, drowsiness, CVA symptomology COMPARISON: Ct Stroke Brain Wo Cont dated 03/20/2023; Head Brain Wo Cont dated 11/26/2022 TECHNIQUE: All CT scans are performed using dose optimization technique as appropriate and may inclu de automated exposure control or mA/KV adjustment according to patient size. FINDINGS: No intracranial hemorrhage, hydrocephalus or extra-axial fluid collection.No areas of brai n edema or evidence of midline shift. The paranasal sinuses and mastoids are clear. The calvarium is intact. IMPRESSION: No acute intracranial abnormality. If there is continued clinical concern for CVA, MR i maging of the brain would be recommended.
--- NOTE | 2023-09-25 16:52 | RAD REPORT ---
EXAM DESCRIPTION: RAD - Chest Single View - 09/25/2023 4:41 pm CLINICAL HISTORY: cva Chest pain. COMPARISON: Chest Single View dated 03/20/2023; Chest Single View dated 11/10/2022; Chest Pa And Lat ( 2 Views) dated 02/16/2021 FINDINGS: Portable technique limits examination quality. The lungs are grossly clear. The heart is normal in size. No displaced fractures. IMPRESSION: No acute intrathoracic process suspected.
[2023-09-25 17:27] LABS: Absolute Basophils 0.1 K/uL (0-0.5); Absolute Eosinophils 0.1 K/uL (0-0.5); Absolute Lymphocytes (CBC) 2.6 K/uL (0.7-4.9); Absolute Monocytes 0.8 K/uL (0.1-1.3); Basophils % 0.5 % (0-1.3); Eosinophils % 1.2 % (0-4.4); Hematocrit 40.5 % (39.6-49.0); Hemoglobin 13.9 g/dL (13.6-17.9); MCH 29.3 pg (27.0-35.0); MCHC 34.3 g/dL (32.0-36.0); MCV 85.6 fL (80-100); MPV 7.7 fL (7.6-11.3); Monocytes % 7.4 % (3.3-12.3); Neutrophils % 65.9 % (41.7-73.7); Platelets 257 thou/uL (152-406); RBC Red Blood Cell Count 4.73 M/uL (4.33-5.43); Red Cell Distribution Width 14.6 % (12.1-15.2)
[2023-09-25 17:35] LABS: PT Prothrombin Time 11.5 SECONDS (9.5-12.5); Protime INR 1.05
[2023-09-25 17:45] LABS: ALT/SGPT 23 U/L (16-61); AST/SGOT 11 U/L (15-37); Albumin 3.2 g/dL (3.4-5.0); Albumin/Globulin Ratio 0.8 (1.1-1.8); Alkaline Phosphatase 93 U/L (45-117); Anion Gap 7.9 mEq/L (5.0-15.0); BUN Blood Urea Nitrogen 11 mg/dL (7-18); Bicarbonate 25 mEq/L (21-32); Bilirubin Total 0.2 mg/dL (0.2-1.0); Globulin 3.9 g/dL (2.3-3.5); Glomerular Filtration Rate 111 ml/min (=/>90); Glucose Level 209 mg/dL (74-106); Magnesium 1.6 mg/dL (1.6-2.4); Potassium 3.9 mEq/L (3.5-5.1); Protein, Total 7.1 g/dL (6.4-8.2); Sodium Level 134 mEq/L (136-145)
[2023-09-25 17:51] LABS: Bilirubin Direct < 0.1 mg/dL (0-0.2); Bilirubin Indirect, Calculated ND mg/dL (0.2-0.8); Troponin High Sensitivity < 3.0 pg/mL (<58.9)
[2023-09-25] MEDS ORDERED: ONDANSETRON 4 MG/2 ML VIAL IV PRN (19:50)
[2023-09-25] MEDS ORDERED: ACETAMINOPHEN 500 MG TAB PO PRN (20:13)
[2023-09-25] MEDS ORDERED: CYCLOBENZAPRINE 10 MG TAB PO PRN (20:13)
--- NOTE | 2023-09-25 20:17 | ER ---
Nurse's Notes [facility] Name: Liu Almonte Age: 58 yrs Sex: Male : 1965 Arrival Date: 09/25/2023 Time: 15:57 Bed 20 Private MD: Diagnosis: Slurred speech;Weakness Presentation: 09/24 16:00 Initial Sepsis Screen: Does the patient meet any 2 criteria? No. Patient's initial me1 sepsis screen is negative. Does the patient have a suspected source of infection? No. Patient's initial sepsis screen is negative. Risk Assessment: Do you want to hurt yourself or someone else? Patient reports no desire to harm self or others. Onset of symptoms was September 25, 2023. 16:00 Acuity: CAROLINA 3 me1 16:06 Chief complaint: EMS states: toned out to rehab facility as patient has had several me1 falls in the recent past. Rehab staff report slurred speech. No slurred speech noted by EMS. BGL 300. Coronavirus screen: Vaccine status: Patient reports being unvaccinated. Ebola Screen: No symptoms or risks identified at this time. 16:06 Method Of Arrival: EMS: [facility] me1 Triage Assessment: 16:10 General: Appears comfortable, well groomed, well developed, well nourished, Behavior is me1 calm, cooperative, appropriate for age. Pain: Denies pain. Neuro: Level of Consciousness is awake, alert, obeys commands, Oriented to person, place, time, situation, Appropriate for age Production Underwriter are weak on left Weakness in left hand(s) arm(s) leg(s) foot/feet Gait is unsteady, Speech is normal, Facial symmetry appears normal, Pupils are PERRLA, Neuro: Facial droop on left. Cardiovascular: Capillary refill < 3 seconds Patient's skin is warm and dry. Respiratory: Airway is patent Respiratory effort is even, unlabored, Respiratory pattern is regular, symmetrical. GI: No signs and/or symptoms were reported involving the gastrointestinal system. : No signs and/or symptoms were reported regarding the genitourinary system. Derm: Skin is intact, is healthy with good turgor, Skin is pink, warm \\T\\ dry. Musculoskeletal: Reports weakness in left arm and left leg from previous cva. 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 - Infectious Disease History:: Denies. - Social history:: Smoking status: Patient/guardian denies using tobacco, but has a distant history of tobacco abuse. - Family history:: not pertinent. Screenin:05 [facility] ED Fall Risk Assessment (Adult) History of falling in the last 3 months, rs5 including since admission No falls in past 3 months (0 pts) Confusion or Disorientation No (0 pts) Intoxicated or Sedated No (0 pts) Impaired Gait Yes (1 pt) Mobility Assist Device Used Yes (1 pt) Altered Elimination No (0 pt) Score/Fall Risk Level 0 - 2 = Low Risk Oriented to surroundings, Maintained a safe environment. 16:05 Abuse screen: Denies threats or abuse. Nutritional screening: No deficits noted. rs5 Tuberculosis screening: No symptoms or risk factors identified. 17:02 Warren Swallow Protocol Exclusion Criteria: Exclusion Criteria Result: Proceed Brief rs5 Cognitive Screen What is your name? Normal, Where are you right now? Normal, What year is it? Normal. Oral Mechanism Examination Facial Symmetry: Normal, Motion: Normal, Lip Closure: Normal, Oral Mechanism Result: Normal. 3 oz Water Swallow Challenge: Pt able to drink all water without stopping, coughing, choking or throat clearing: Yes Result: PASS. Assessment: 16:05 General: Appears in no apparent distress. comfortable, Behavior is calm, cooperative. rs5 Pain: Denies pain. Neuro: Level of Consciousness is awake, alert, obeys commands, Oriented to person, place, time, situation, Production Underwriter are weak on left Weakness in left arm(s) leg(s) Speech is normal, Facial symmetry appears normal, Pupils are PERRLA, Pupil Size: 3 mm Intact Pt states "I've had strokes before and I have left sided weakness from them. I am back to my normal self right now but last night I was slurring my words". 16:05 Cardiovascular: Patient's skin is warm and dry. Rhythm is regular. Respiratory: Airway rs5 is patent Respiratory effort is even, unlabored, Respiratory pattern is regular, symmetrical. GI: Abdomen is round non-distended, Abd is soft and non tender X 4 quads. : No signs and/or symptoms were reported regarding the genitourinary system. EENT: No signs and/or symptoms were reported regarding the EENT system. Derm: Skin is intact, Skin is dry, Skin is normal. Musculoskeletal: Circulation, motion, and sensation intact. 17:01 Reassessment: No changes from previously documented assessment. rs5 17:49 Reassessment: Patient and/or family updated on plan of care and expected duration. Pain rs5 level reassessed. Patient is alert, oriented x 3, equal unlabored respirations, skin warm/dry/pink. 18:38 Reassessment: No changes from previously documented assessment. rs5 19:36 Reassessment: Patient and/or family updated on plan of care and expected duration. Pain tm6 level reassessed. Patient is alert, oriented x 3, equal unlabored respirations, skin warm/dry/pink. Patient states feeling better. Vital Signs: 16:00 BP 130 / 77; Pulse 93; Resp 16; Pulse Ox 99% on R/A; me1 17:49 BP 128 / 79; Pulse 88; Resp 18; Pulse Ox 99% on R/A; rs5 19:36 BP 138 / 91; Pulse 82; Pulse Ox 96% on R/A; Pain 0/10; tm6 19:36 Pain Scale: Adult tm6 NIH Stroke Scale Scores: 16:05 NIHSS Score: 0 rs5 17:10 NIHSS Score: 0 rs5 ED Course: 16:02 Patient arrived in ED. ec2 16:04 Dominik Cooper MD is Attending Physician. rt 16:05 Patient has correct armband on for positive identification. Placed in gown. Bed in low rs5 position. Call light in reach. Side rails up X2. 16:06 Olena Vera, PAULINA is Primary Nurse. me1 16:10 Triage completed. me1 16:10 Arm band placed on Patient placed in an exam room. me1 16:40 Head Brain Wo Cont In Process Unspecified. EDMS 16:43 Stroke CXR 1 View In Process Unspecified. EDMS 17:49 No provider procedures requiring assistance completed. rs5 20:16 Grabiel Nogueira MD is Hospitalizing Provider. rt 20:20 Provided Education on: need for admit. tm6 20:20 Patient admitted, IV remains in place. tm6 Administered Medications: No medications were administered Medication: 17:49 VIS not applicable for this client. rs5 Outcome: 20:16 Decision to Hospitalize by Provider. rt 20:20 Admitted to ER Hold. Please see [facility] for further documentation. tm6 20:20 Condition: stable 20:20 Instructed on the need for admit, 09/25 14:16 Patient left the ED. kc6 NIH Stroke Scale - NIH Stroke Score Date: 09/25/2023 Time: 16:05 Total Score = 0 10. Dysarthria (speech clarity - read or repeat words) - 0(Normal) 11. Extinction and Inattention (visual/tactile/auditory/spatial/personal) - 0(No abnormality) 1a. Level of Consciousness (LOC) - 0(Alert) 1b. Level of Consciousness (LOC) (Month \\T\\ Age) - 0(Both) 1c. LOC Commands (Open \\T\\ Closes Eyes/Adult Literacy Teacher) - 0(Both) 2. Best Gaze (Lateral Gaze Paresis) - 0(Normal) 3. Visual Field Loss - 0(No visual loss) 4. Facial Palsy - 0(Normal) 5a. Left Arm: Motor (10-second hold) - 0(No drift) 5b. Right Arm: Motor (10-second hold) - 0(No drift) 6a. Left Leg: Motor (5-second hold - always test supine) - 0(No drift) 6b. Right Leg: Motor (5-second hold - always test supine) - 0(No drift) 7. Limb Ataxia (finger/nose \\T\\ heel/flores - test with eyes open) - 0(Absent) 8. Sensory Loss (pinprick arms/legs/face) - 0(Normal) 9. Best Language: Aphasia (description/naming/reading) - 0(No aphasia) Initials: rs5 NIH Stroke Scale - NIH Stroke Score Date: 09/25/2023 Time: 17:10 Total Score = 0 10. Dysarthria (speech clarity - read or repeat words) - 0(Normal) 11. Extinction and Inattention (visual/tactile/auditory/spatial/personal) - 0(No abnormality) 1a. Level of Consciousness (LOC) - 0(Alert) 1b. Level of Consciousness (LOC) (Month \\T\\ Age) - 0(Both) 1c. LOC Commands (Open \\T\\ Closes Eyes/Adult Literacy Teacher) - 0(Both) 2. Best Gaze (Lateral Gaze Paresis) - 0(Normal) 3. Visual Field Loss - 0(No visual loss) 4. Facial Palsy - 0(Normal) 5a. Left Arm: Motor (10-second hold) - 0(No drift) 5b. Right Arm: Motor (10-second hold) - 0(No drift) 6a. Left Leg: Motor (5-second hold - always test supine) - 0(No drift) 6b. Right Leg: Motor (5-second hold - always test supine) - 0(No drift) 7. Limb Ataxia (finger/nose \\T\\ heel/flores - test with eyes open) - 0(Absent) 8. Sensory Loss (pinprick arms/legs/face) - 0(Normal) 9. Best Language: Aphasia (description/naming/reading) - 0(No aphasia) Initials: rs5 Signatures: Dispatcher [employer] EDCodie Miranda RN RN kc6 Dominik Cooper MD MD rt Casey Eaton RN RN rs5 Olena Vera RN RN me1 Carloz Lynn MD MD ec2 Kam Hopson RN RN tm6
--- NOTE | 2023-09-25 20:17 | EDPHYS ---
Physician Documentation [facility] Name: Liu Almonte Age: 58 yrs Sex: Male : 1965 Arrival Date: 09/25/2023 Time: 15:57 Bed 20 Private MD: ED Physician Dominik Cooper HPI: 09/24 17:04 This 58 yrs old Male presents to ER via EMS with complaints of Weakness. rt 17:04 Patient presents to the ED with reported weakness, speech disturbance as well as rt difficulty with his gait starting yesterday. Patient does have a history of prior strokes with residual left-sided deficits, usually able to ambulate with her walker. Denies other acute complaints at this time, symptoms are moderate in severity, no other aggravating or alleviating factors.. 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 - Infectious Disease History:: Denies. - Social history:: Smoking status: Patient/guardian denies using tobacco, but has a distant history of tobacco abuse. - Family history:: not pertinent. ROS: 17:04 Constitutional: Negative for fever, chills, and weight loss, Cardiovascular: Negative rt for chest pain, palpitations, and edema, Respiratory: Negative for shortness of breath, cough, wheezing, and pleuritic chest pain, Abdomen/GI: Negative for abdominal pain, nausea, vomiting, diarrhea, and constipation, MS/Extremity: Negative for injury and deformity, Skin: Negative for injury, rash, and discoloration, 17:04 Neuro: Positive for speech changes, weakness, Exam: 17:04 Constitutional: This is a well developed, well nourished patient who is awake, alert, rt and in no acute distress. Head/Face: Normocephalic, atraumatic. Chest/axilla: Normal chest wall appearance and motion. Nontender with no deformity. No lesions are appreciated. Cardiovascular: Regular rate and rhythm with a normal S1 and S2. No gallops, murmurs, or rubs. Normal PMI, no JVD. No pulse deficits. Respiratory: Lungs have equal breath sounds bilaterally, clear to auscultation and percussion. No rales, rhonchi or wheezes noted. No increased work of breathing, no retractions or nasal flaring. Abdomen/GI: Soft, non-tender, with normal bowel sounds. No distension or tympany. No guarding or rebound. No evidence of tenderness throughout. Skin: Warm, dry with normal turgor. Normal color with no rashes, no lesions, and no evidence of cellulitis. MS/ Extremity: Pulses equal, no cyanosis. Neurovascular intact. Full, normal range of motion. Psych: Awake, alert, with orientation to person, place and time. Behavior, mood, and affect are within normal limits. 17:04 Neuro: Speech normal, slight left-sided facial droop, minimal drift on left upper extremity, strength and sensation otherwise intact, no other cranial nerve deficits, Vital Signs: 16:00 BP 130 / 77; Pulse 93; Resp 16; Pulse Ox 99% on R/A; me1 17:49 BP 128 / 79; Pulse 88; Resp 18; Pulse Ox 99% on R/A; rs5 19:36 BP 138 / 91; Pulse 82; Pulse Ox 96% on R/A; Pain 0/10; tm6 19:36 Pain Scale: Adult tm6 NIH Stroke Scale Scores: 16:05 NIHSS Score: 0 rs5 17:10 NIHSS Score: 0 rs5 MDM: 16:04 Patient medically screened. rt 20:33 Differential Diagnosis CVA, TIA, electrolyte disturbance. Data reviewed: vital signs, rt nurses notes, lab test result(s), EKG, radiologic studies. Consideration of Admission/Observation Patient was admitted/placed on observation. Management of patient was discussed with the following: Hospitalist: Agrees to admit. Independent interpretation of the following test(s) in the Emergency Department CT Scan: My interpretation is No intracranial hemorrhage seen on interpretation of CT scan images. Care significantly affected by the following chronic conditions: Previous stroke. Counseling: I had a detailed discussion with the patient and/or guardian regarding the historical points, exam findings, and any diagnostic results supporting the discharge/admit diagnosis, lab results, radiology results, the need for further work-up and treatment in the hospital. 09/24 16:18 Order name: Basic Metabolic Panel; Complete Time: 18:38 rt 09/24 16:18 Order name: CBC with Diff; Complete Time: 18:38 rt 09/24 16:18 Order name: Hepatic Function; Complete Time: 18:38 rt 09/24 16:18 Order name: High Sensitivity Troponin; Complete Time: 18:38 rt 09/24 16:18 Order name: Magnesium; Complete Time: 18:38 rt 09/24 16:18 Order name: Protime (+inr); Complete Time: 18:38 rt 09/24 16:18 Order name: Ptt, Activated; Complete Time: 18:38 rt 09/24 19:54 Order name: Urinalysis w/ reflexes EDMS 09/24 19:54 Order name: CBC with Automated Diff EDMS 09/24 19:54 Order name: CBC with Automated Diff EDMS 09/24 19:54 Order name: Comprehensive Metabolic Panel EDMS 09/24 19:54 Order name: Comprehensive Metabolic Panel EDMS 09/24 23:07 Order name: RPR EDMS 09/24 23:18 Order name: Glucose, Ancillary Testing EDMS 09/24 23:37 Order name: Vitamin D, 25 (OH), TOTAL EDMS 09/25 00:02 Order name: Vitamin B12 Level EDMS 09/25 01:06 Order name: Miscellaneous Test Lab EDMS 09/25 07:30 Order name: Glucose, Ancillary Testing EDMS 09/25 07:37 Order name: Phosphorus EDMS 09/25 12:49 Order name: Glucose, Ancillary Testing EDMS 09/24 16:18 Order name: Stroke CXR 1 View; Complete Time: 16:55 rt 09/24 16:27 Order name: Head Brain Wo Cont; Complete Time: 16:55 EDMS 09/25 09:12 Order name: MRI EDMS 09/24 16:18 Order name: Accucheck; Complete Time: 17:53 rt 09/24 16:18 Order name: Cardiac monitoring; Complete Time: 17:53 rt 09/24 16:18 Order name: EKG - Nurse/Tech; Complete Time: 17:53 rt 09/24 16:18 Order name: IV Saline Lock; Complete Time: 17:53 rt 09/24 16:18 Order name: Labs collected and sent; Complete Time: 17:53 rt 09/24 16:18 Order name: NPO; Complete Time: 17:53 rt 04/02 16:18 Order name: O2 Per Protocol; Complete Time: 17:53 rt 09/24 16:18 Order name: O2 Sat Monitoring; Complete Time: 17:53 rt 09/24 16:18 Order name: Stroke Swallow Screen; Complete Time: 17:53 rt Administered Medications: No medications were administered Disposition Summary: 09/25/23 20:16 Hospitalization Ordered Notes: Hospitalization Status: Observation rt Provider: Grabiel Nogueira rt Condition: Stable rt Problem: new rt Symptoms: are unchanged rt Bed/Room Type: Standard rt Location: [facility] ER HOLD(09/26/23 14:02) kb3 Room Assignment: ERHOLD-(09/26/23 14:02) kb3 Diagnosis - Slurred speech rt - Weakness rt Forms: - Medication Reconciliation Form rt - SBAR form rt - Leadership Thank You Letter rt NIH Stroke Scale - NIH Stroke Score Date: 09/25/2023 Time: 16:05 Total Score = 0 10. Dysarthria (speech clarity - read or repeat words) - 0(Normal) 11. Extinction and Inattention (visual/tactile/auditory/spatial/personal) - 0(No abnormality) 1a. Level of Consciousness (LOC) - 0(Alert) 1b. Level of Consciousness (LOC) (Month \T\ Age) - 0(Both) 1c. LOC Commands (Open \T\ Closes Eyes/Mds Nurse) - 0(Both) 2. Best Gaze (Lateral Gaze Paresis) - 0(Normal) 3. Visual Field Loss - 0(No visual loss) 4. Facial Palsy - 0(Normal) 5a. Left Arm: Motor (10-second hold) - 0(No drift) 5b. Right Arm: Motor (10-second hold) - 0(No drift) 6a. Left Leg: Motor (5-second hold - always test supine) - 0(No drift) 6b. Right Leg: Motor (5-second hold - always test supine) - 0(No drift) 7. Limb Ataxia (finger/nose \T\ heel/flores - test with eyes open) - 0(Absent) 8. Sensory Loss (pinprick arms/legs/face) - 0(Normal) 9. Best Language: Aphasia (description/naming/reading) - 0(No aphasia) Initials: rs5 NIH Stroke Scale - NIH Stroke Score Date: 09/25/2023 Time: 17:10 Total Score = 0 10. Dysarthria (speech clarity - read or repeat words) - 0(Normal) 11. Extinction and Inattention (visual/tactile/auditory/spatial/personal) - 0(No abnormality) 1a. Level of Consciousness (LOC) - 0(Alert) 1b. Level of Consciousness (LOC) (Month \T\ Age) - 0(Both) 1c. LOC Commands (Open \T\ Closes Eyes/Mds Nurse) - 0(Both) 2. Best Gaze (Lateral Gaze Paresis) - 0(Normal) 3. Visual Field Loss - 0(No visual loss) 4. Facial Palsy - 0(Normal) 5a. Left Arm: Motor (10-second hold) - 0(No drift) 5b. Right Arm: Motor (10-second hold) - 0(No drift) 6a. Left Leg: Motor (5-second hold - always test supine) - 0(No drift) 6b. Right Leg: Motor (5-second hold - always test supine) - 0(No drift) 7. Limb Ataxia (finger/nose \T\ heel/flores - test with eyes open) - 0(Absent) 8. Sensory Loss (pinprick arms/legs/face) - 0(Normal) 9. Best Language: Aphasia (description/naming/reading) - 0(No aphasia) Initials: rs5 Signatures: Dispatcher [employer] EDMS Cristy Florence Cindy, RN RN Janet Garcia, RN RN kb3 Dominik Cooper MD MD rt Olena Vera RN RN me1 Corrections: (The following items were deleted from the chart) 16:18 16:18 Neck Angio+CT.RAD.BRZ ordered. EDMS EDMS 16:18 16:18 CT-STROKE BRAIN W/O CONTRAST+CT.RAD.BRZ ordered. EDMS EDMS 16:18 16:18 Chest Single View+RAD.RAD.BRZ ordered. EDMS EDMS 16:27 16:18 Head Angio+CT.RAD.BRZ ordered. EDMS EDMS 21:00 20:16 Telemetry/MedSurg (observation) rt cg 21:00 20:16 rt cg 09/25 10:55 09/24 21:00 [facility] ER HOLD cg bd 09/25 10:55 09/24 21:00 ERHOLD- cg bd 09/25 11:22 10:55 406 bd bd 14: 10:55 Telemetry/MedSurg (observation) bd kb3 14: 11: bd kb3
--- NOTE | 2023-09-25 20:21 | P.HP ---
Certification for Inpatient Patient admitted to: Inpatient With expected LOS: >2 Midnights Practitioner: I am a practitioner with admitting privileges, knowledge of patient current condition, hospital course, and medical plan of care. Services: Services provided to patient in accordance with Admission requirements found in Title 42 Section 412.3 of the Code of Federal Regulations Patient History Date of Service: 09/25/23 Reason for admission: CVA History of Present Illness: 58-year-old right-handed patient with history of hypertension, neuropathy, depression, anxiety, prior right thalamic stroke with left-sided weakness, DM who comes in with paresthesias and speech disturbance, difficulty in ambulation with started yesterday and has been progressively worsening and was brought to ER. Patient denies any chest pain or shortness of breath. No palpitations. No fever or chills. No sick contacts. No nausea vomiting or diarrhea. Patient was also seen in the ER and had a code stroke was called had a CT of the brain which did not show any acute changes Patient to be admitted for further management ; Allergies iodine Allergy (Verified 01/26/23 14:56) Hives/Rash Home medications list reviewed: Yes Home Medications: Acetaminophen [Tylenol Extra Strength] 500 mg PO Q6H PRN 11/22/22 Amlodipine Besylate [Norvasc] 5 mg PO BID 11/22/22 Aspirin [Aspirin EC 81 MG] 81 mg PO DAILY 11/22/22 Atorvastatin Calcium [Lipitor] 80 mg PO BEDTIME 11/22/22 Clopidogrel Bisulfate [Plavix*] 75 mg PO DAILY 11/22/22 Cyclobenzaprine [Flexeril*] 10 mg PO TID PRN 11/22/22 Gabapentin 300 mg PO TID 11/22/22 Lidocaine 4% Patch [Lidoderm 5% Patch*] 1 patch TD DAILY 11/22/22 Sennosides/Docusate Sodium [Senna-S 8.6-50 mg Tablet] 1 each PO BEDTIME 11/22/22 Simethicone [Mylicon*] 80 mg PO Q6H PRN 11/22/22 Thiamine Mononitrate (Vit B1) [Vitamin B-1] 100 mg PO DAILY 11/22/22 hydrOXYzine HCL [Atarax*] 25 mg PO TID PRN 11/22/22 Calcium Carbonate [Tums Regular*] 500 mg PO QID 04/02/23 Fluoxetine HCl [Prozac] 40 mg PO DAILY 04/02/23 Folic Acid 1 mg PO DAILY #1 04/02/23 Hydrocodone 5/APAP 325 [Christmas 5/325*] 1 tab PO Q6H PRN 04/02/23 Insulin Glargine,Hum.rec.anlog [Semglee] 23 unit SQ BEDTIME 04/02/23 Losartan Potassium [Cozaar*] 50 mg PO BID 04/02/23 Metformin HCl 1,000 mg PO BIDAC 04/02/23 Methyl Matt/Menthol [Thera-Gesic*] 90 appl TOP QID PRN 04/02/23 Metoprolol Tartrate [Lopressor*] 50 mg PO BID 6AM 6PM tab 04/02/23 - Past Medical/Surgical History Diabetic: Yes Past Medical History: Reviewed- Non-Contributory -: DM -: HTN -: NEUROPATHY -: ANXIETY -: DEPRESSION -: CVA Past Surgical History: Reviewed- Non-Contributory -: BILATERAL KNEE SURGERY -: LT ANKLE SX - Family History Family History: Reviewed- Non-Contributory - Social History Smoking Status: Never smoker Alcohol use: No CD- Drugs: Yes Caffeine use: Yes Review of Systems 10-point ROS is otherwise unremarkable Physical Examination - Vital Signs Temperature: 98.2 F Blood Pressure: 138/78 Pulse: 78 Respirations: 18 Pulse Ox (%): 98 - Physical Exam General: Alert, In no apparent distress, Oriented x3, Cooperative HEENT: Atraumatic, Normocephalic Neck: Supple, No Thyromegaly Respiratory: Clear to auscultation bilaterally, Normal air movement Cardiovascular: Regular rate/rhythm, Normal S1 S2, No murmurs Capillary refill: <2 Seconds Gastrointestinal: Soft and benign, W/out hepatosplenomegaly Musculoskeletal: No clubbing, No swelling, No contractures Integumentary: No rashes, No breakdown Neurological: Normal speech, Abnormal gait Lymphatics: No axilla or inguinal lymphadenopathy - Studies Laboratory Data (last 24 hrs) 09/25/23 09/25/23 09/25/23 17:19 17:19 17:19 WBC 10.60 Hgb 13.9 Hct 40.5 Plt Count 257 PT 11.5 INR 1.05 APTT 28.0 Sodium 134 L Potassium 3.9 BUN 11 Creatinine 0.60 L Glucose 209 H Magnesium 1.6 Total Bilirubin 0.2 AST 11 L ALT 23 Alkaline Phosphatase 93 Imagings Data: CT FINDINGS: No intracranial hemorrhage, hydrocephalus or extra-axial fluid collection.No areas of brain edema or evidence of midline shift. The paranasal sinuses and mastoids are clear. The calvarium is intact. IMPRESSION: No acute intracranial abnormality. If there is continued clinical concern for CVA, MR imaging of the brain would be recommended Assessment and Plan - Problems (Diagnosis) (1) Acute CVA (cerebrovascular accident) Current Visit: No Status: Acute Plan: CVA/TIA Has baseline focal weakness left side Numbness of left-sided body Started on aspirin and statin Continue Plavix CT findings noted MRI brain ordered Monitor neuro vital signs Monitor under telemetry Stroke workup PT OT evaluation (2) Diabetes mellitus type 2 in obese Current Visit: No Status: Chronic Plan: Insulin sliding scale Accu-Chek before every meal and at bedtime Will get an A1c in a.m. Monitor closely under telemetry (3) HTN (hypertension) Current Visit: No Status: Chronic Plan: Hypertension Antihypertensives titrated Continue home medications and titrate as needed (4) Combined hyperlipidemia Current Visit: Yes Status: Chronic Plan: Hyperlipidemia Continue statin Discharge Plan: Home Plan to discharge in: 48 Hours - Advance Directives Does patient have a Living Will: No Does patient have a Durable POA for Healthcare: No - Code Status/Comfort Care Code Status: Full Code Time Spent Managing Pts Care (In Minutes): 54
[2023-09-25] MEDS: AMLODIPINE 5 MG TAB PO SCH (21:00)
[2023-09-25] MEDS: INSULIN REGULAR (HUMAN) 100 UNIT/ML SQ SCH (21:00)
[2023-09-25] MEDS: CALCIUM CARBONATE CHEW 500MG TAB PO SCH (21:00)
[2023-09-25] MEDS: GABAPENTIN 300 MG CAP PO SCH (22:58)
[2023-09-25] MEDS: NA CHLORIDE 0.9% 1,000 ML IV SCH (23:00)
[2023-09-25 23:07] LABS: RPR Titer ND
[2023-09-25] MEDS ORDERED: GABAPENTIN 300 MG CAP ONE (23:33)
[2023-09-25] MEDS ORDERED: ATORVASTATIN 40 MG TAB ONE (23:33)
[2023-09-25] MEDS ORDERED: AMLODIPINE 5 MG TAB ONE (23:33)
[2023-09-25] MEDS ORDERED: INSULIN REGULAR (HUMAN) 100 UNIT/ML ONE (23:34)
[2023-09-25] MEDS ORDERED: NA CHLORIDE 0.9% 1,000 ML ONE (23:34)
[2023-09-25] MEDS: ATORVASTATIN 40 MG TAB PO SCH (23:46)
[2023-09-26] MEDS ORDERED: ACETAMINOPHEN 160 MG/5 ML UCUP ONE (04:44)
[2023-09-26] MEDS ORDERED: CEFTRIAXONE 500 MG/VIAL ONE (04:44)
[2023-09-26] MEDS ORDERED: IBUPROFEN 100 MG/5 ML UCUP ONE (04:44)
[2023-09-26] MEDS ORDERED: DIPHENHYDRAMINE 12.5MG/5ML LIQ ONE (04:44)
[2023-09-26] MEDS ORDERED: ACETAMINOPHEN 500 MG TAB ONE (04:45)
[2023-09-26] MEDS: ACETAMINOPHEN 500 MG TAB PO PRN (04:46)
[2023-09-26 05:17] LABS: Absolute Basophils 0.1 K/uL (0-0.5); Absolute Eosinophils 0.2 K/uL (0-0.5); Absolute Lymphocytes (CBC) 2.5 K/uL (0.7-4.9); Absolute Monocytes 0.9 K/uL (0.1-1.3); Absolute Neutrophil 6.6 K/uL (1.8-8.0); Basophils % 0.5 % (0-1.3); Eosinophils % 2.2 % (0-4.4); Hematocrit 41.9 % (39.6-49.0); Hemoglobin 13.8 g/dL (13.6-17.9); Lymphocytes % 24.3 % (15.3-44.8); MCH 28.7 pg (27.0-35.0); MCHC 32.9 g/dL (32.0-36.0); MCV 87.2 fL (80-100); Monocytes % 8.7 % (3.3-12.3); Neutrophils % 64.3 % (41.7-73.7); Platelets 256 thou/uL (152-406); RBC Red Blood Cell Count 4.81 M/uL (4.33-5.43); Red Cell Distribution Width 14.6 % (12.1-15.2)
[2023-09-26 05:24] VITALS: BMI 36.8
[2023-09-26 05:35] LABS: Albumin 3.1 g/dL (3.4-5.0); Albumin/Globulin Ratio 0.8 (1.1-1.8); Bilirubin Total 0.3 mg/dL (0.2-1.0); Globulin 3.9 g/dL (2.3-3.5)
[2023-09-26 05:58] LABS: RPR (Rapid Plasma Reagin) NON-REACT (NON-REACT)
[2023-09-26 07:37] LABS: Phosphorus 3.8 mg/dL (2.5-4.9)
[2023-09-26] MEDS: CALCIUM CARBONATE CHEW 500MG TAB PO SCH (09:00)
[2023-09-26] MEDS: ASPIRIN EC 81 MG TAB PO SCH (09:00)
[2023-09-26] MEDS: CLOPIDOGREL 75 MG TABLET PO SCH (09:00)
[2023-09-26] MEDS: ENOXAPARIN 40 MG/0.4 ML SQ SCH (09:00)
[2023-09-26] MEDS: FLUOXETINE 20 MG CAP PO SCH (09:00)
[2023-09-26] MEDS ORDERED: FLUOXETINE 20 MG CAP PO SCH (09:00)
[2023-09-26] MEDS ORDERED: AMLODIPINE 5 MG TAB ONE (09:07)
[2023-09-26] MEDS ORDERED: CLOPIDOGREL 75 MG TABLET ONE (09:07)
[2023-09-26] MEDS ORDERED: GABAPENTIN 300 MG CAP ONE (09:07)
[2023-09-26] MEDS ORDERED: INSULIN REGULAR (HUMAN) 100 UNIT/ML ONE (09:08)
[2023-09-26] MEDS ORDERED: ENOXAPARIN 40 MG/0.4 ML SQ ONE (09:08)
[2023-09-26] MEDS ORDERED: ASPIRIN EC 81 MG TAB PO ONE (09:08)
--- NOTE | 2023-09-26 09:12 | RAD REPORT ---
EXAM DESCRIPTION: MRI - Brain Wo Cont - 09/26/2023 8:54 am CLINICAL HISTORY: CVA Headache, drowsiness COMPARISON: Head Brain Wo Cont dated 09/25/2023 TECHNIQUE: Multi-sequence, multiplanar MR imaging of the brain was performed without contrast. FINDINGS: No intracranial hemorrhage, hydrocephalus or extra-axial fluid collections.Areas of FLAIR hyperintensity are seen in the periventricular white matter. Although this is a nonspecific finding, may be related to chronic microvascular ischemia. No edema or shift of midline structures. No finding s to suspect brain mass. DWI is negative for acute CVA. Midline structures are normally formed. Mastoid air cells and paranasal sinuses are clear. IMPRESSION: Negative for acute CVA or other acute intracranial finding.
[2023-09-26 11:16] LABS: Specific Gravity 1.023 (1.005-1.030); Sqamous Epithelial <5 /HPF (None Seen); Urine Bacteria None Seen /HPF (<20); Urine Bilirubin NEGATIVE (Negative); Urine Blood Negative (Negative); Urine Clarity Extremely Turbid (Clear); Urine Color Yellow (Yellow); Urine Culture Reflex Order NOT NEEDED; Urine Glucose TRACE (Negative); Urine Ketones NEGATIVE (Negative); Urine Microscopic Reflex YN ORDER UMIC; Urine Mucus 2+ /HPF (None Seen); Urine Nitrite NEGATIVE (Negative); Urine Protein 2+ (Negative); Urine RBC <5 /HPF (None Seen); Urine Urobilinogen Normal (Normal); Urine WBC <5 /HPF (<5); Urine Yeast (Budding) Trace /HPF (None Seen)
--- NOTE | 2023-09-26 14:15 | P.DS ---
Admission Date: 09/25/23 Discharge Date: 09/26/23 Disposition: ROUTINE DISCHARGE Discharge Condition: FAIR Reason for Admission: CVA - Problems (1) TIA (transient ischemic attack) Current Visit: Yes Status: Acute (2) History of CVA (cerebrovascular accident) Current Visit: Yes Status: Acute (3) Diabetes mellitus type 2 in obese Current Visit: No Status: Chronic (4) HTN (hypertension) Current Visit: No Status: Chronic Brief History of Present Illness: 58-year-old right-handed patient with history of hypertension, neuropathy, depression, anxiety, prior right thalamic stroke with left-sided weakness, DM presented to the emergency department with paresthesias and speech disturbance, difficulty in ambulation of 1 day duration. Patient was also seen in the ER and had a code stroke was called. CT of the brain done did not show any acute changes Patient was hospitalized for further management Hospital Course: Patient was placed under observation on the medical floor. Patient stated his neurologic [id number] paresthesia from his previous stroke is at baseline. MRI of the brain did not show any acute stroke. Acute CVA ruled out. Patient's symptoms probably secondary to TIA. Patient is on aspirin, Plavix and statin which are continued on discharge. Vital Signs/Physical Exam: Temp Pulse Resp BP Pulse Ox 98.2 F 76 19 150/74 H 99 09/26/23 12:00 09/26/23 12:00 09/26/23 12:00 09/26/23 12:00 09/26/23 12:00 General: Alert, In no apparent distress, Oriented x3 HEENT: Normocephalic, PERRLA, Mucous membr. moist/pink, Sclerae nonicteric Neck: Supple, JVD not distended Respiratory: Clear to auscultation bilaterally, Normal air movement Cardiovascular: No edema, Regular rate/rhythm, Normal S1 S2 Gastrointestinal: Normal bowel sounds, Soft and benign, Non-distended, No tenderness Musculoskeletal: No swelling Integumentary: No rashes, No cyanosis Neurological: Normal strength at 5/5 x4 extr Laboratory Data at Discharge: WBC 10.20 thou/uL (4.3-10.9) 09/26/23 04:34 Hgb 13.8 g/dL (13.6-17.9) 09/26/23 04:34 Hct 41.9 % (39.6-49.0) 09/26/23 04:34 Plt Count 256 thou/uL (152-406) 09/26/23 04:34 PT 11.5 SECONDS (9.5-12.5) 09/25/23 17:19 INR 1.05 09/25/23 17:19 APTT 28.0 SECONDS (24.3-36.9) 09/25/23 17:19 Sodium 139 mEq/L (136-145) D 09/26/23 04:34 Potassium 4.0 mEq/L (3.5-5.1) 09/26/23 04:34 BUN 13 mg/dL (7-18) 09/26/23 04:34 Creatinine 0.52 mg/dL (0.70-1.30) L 09/26/23 04:34 Glucose 123 mg/dL (74-106) H 09/26/23 04:34 Phosphorus Cancelled 09/26/23 07:21 Magnesium 1.6 mg/dL (1.6-2.4) 09/25/23 17:19 Total Bilirubin 0.3 mg/dL (0.2-1.0) 09/26/23 04:34 AST 12 U/L (15-37) L 09/26/23 04:34 ALT 22 U/L (16-61) 09/26/23 04:34 Alkaline Phosphatase 80 U/L (45-117) 09/26/23 04:34 Home Medications: Acetaminophen [Tylenol Extra Strength] 500 mg PO Q6H PRN 11/22/22 Amlodipine Besylate [Norvasc] 5 mg PO BID 11/22/22 Aspirin [Aspirin EC 81 MG] 81 mg PO DAILY 11/22/22 Atorvastatin Calcium [Lipitor] 80 mg PO BEDTIME 11/22/22 Clopidogrel Bisulfate [Plavix*] 75 mg PO DAILY 11/22/22 Cyclobenzaprine [Flexeril*] 10 mg PO TID PRN 11/22/22 Gabapentin 300 mg PO TID 11/22/22 Lidocaine 4% Patch [Lidoderm 5% Patch*] 1 patch TD DAILY 11/22/22 Sennosides/Docusate Sodium [Senna-S 8.6-50 mg Tablet] 1 each PO BEDTIME 11/22/22 Simethicone [Mylicon*] 80 mg PO Q6H PRN 11/22/22 Thiamine Mononitrate (Vit B1) [Vitamin B-1] 100 mg PO DAILY 11/22/22 Calcium Carbonate [Tums Regular*] 500 mg PO QID 04/02/23 Fluoxetine HCl [Prozac] 40 mg PO DAILY 04/02/23 Folic Acid 1 mg PO DAILY #1 04/02/23 Hydrocodone 5/APAP 325 [[place] 5/325*] 1 tab PO Q6H PRN 04/02/23 Insulin Glargine,Hum.rec.anlog [Semglee] 23 unit SQ BEDTIME 04/02/23 Losartan Potassium [Cozaar*] 50 mg PO BID 04/02/23 Metformin HCl 1,000 mg PO BIDAC 04/02/23 Metoprolol Tartrate [Lopressor*] 50 mg PO BID 6AM 6PM tab 04/02/23 Diet: AHA Activity: Ad aida Followup: ANN MATTHEWS [Primary Care Provider] - Time spent managing pt's care (in minutes): 28
[2023-09-26 14:18] VITALS: BP 150/74; TEMP 98.2
[2023-09-26 14:52] VITALS: O2SAT 96
--- NOTE | 2023-09-27 07:34 | ECHO ---
HEIGHT: 5 ft 4 in WEIGHT: 215 lb 0 oz DATE OF STUDY: 09/26/[address]: Valeriy Nogueira DO 2-DIMENSIONAL: YES M.MODE: YES DOPPLER: YES COLOR FLOW: YES TDS: PORTABLE: YES DEFINITY: BUBBLE STUDY: DIAGNOSIS: DIZZY/ LIGHT HEADED CARDIAC HISTORY: CATHERIZATION: SURGERY: PROSTHETIC VALVE: PACEMAKER: MEASUREMENTS (cm) DIASTOLIC (NORMALS) SYSTOLIC (NORMALS) IVSd 0.9 (0.6-1.2) LA Diam 3.7 (1.9-4.0) LVEF 61% LVIDd 3.2 (3.5-5.7) LVIDs 2.2 (2.0-3.5) %FS 31% LVPWd 1.0 (0.6-1.2) Ao Diam 2.9 (2.0-3.7) 2 DIMENSIONAL ASSESSMENT: RIGHT ATRIUM: NORMAL LEFT ATRIUM: NORMAL RIGHT VENTRICLE: NORMAL LEFT VENTRICLE: NORMAL TRICUSPID VALVE: NORMAL MITRAL VALVE: NORMAL PULMONIC VALVE: NORMAL AORTIC VALVE: NORMAL PERICARDIAL EFFUSION: NONE AORTIC ROOT: NORMAL LEFT VENTRICULAR WALL MOTION: NORMAL DOPPLER/COLOR FLOW: NORMAL COMMENTS: 1. NORMAL LEFT VENTRICULAR SYSTOLIC FUCNTION, EJECTION FRACTION 60 %, NORMAL WALL MOTION 2. NORMAL DIASTOLIC FUCNTION TECHNOLOGIST: MARBIN VOGEL
== END 2023-09-26 14:16 | disposition home or self-care (01) ==
LOC: ER 15:57 → INTOOBSV 19:50 → ERHOLD 19:50 → 4TH 09-26 10:57
PROVIDERS: ADMIT Family Medicine; ATTEND Internal Medicine
DX: G45.9 Transient cerebral ischemic attack, unspecified (principal); I69.354 Hemiplegia and hemiparesis following cerebral infarction affecting left non-dominant side; E66.9 Obesity, unspecified; I10 Essential (primary) hypertension; E78.2 Mixed hyperlipidemia; F41.9 Anxiety disorder, unspecified; F32.A Depression, unspecified; E11.40 Type 2 diabetes mellitus with diabetic neuropathy, unspecified; Z88.9 Allergy status to unspecified drugs, medicaments and biological substances
CPT/HCPCS: 93306; 85025 ×2; 81001; 80048; 36415; 83735; 84100; 85610; 82947 ×3; 80076; 86592; 85730; 84484; 82607; 80053; 81241; 81240; 82306; 83090; 85300; 85302; 85305; 85306; 86021 ×2; 86147 ×2; 84165; 70450; 71045; 70551; J1815 ×2; Q0163; J1650; J7030; G0378

== ENCOUNTER 2024-09-07 15:59 | Emergency (ER) | payer OTHER ==
[2024-09-07] MEDS ORDERED: ACETAMINOPHEN 500 MG TAB ONE (16:32)
[2024-09-07] MEDS ORDERED: ONDANSETRON 4 MG (ODT) TAB ONE (16:33)
[2024-09-07 17:12] LABS: Influenza A Ag Negative; Influenza B Ag Negative
[2024-09-07 17:13] LABS: SARS-CoV-2 Antigen Rapid Res Negative (Negative)
--- NOTE | 2024-09-07 17:55 | EDPHYS ---
Physician Documentation [facility] Name: Liu Almonte Age: 59 yrs Sex: Male : 1965 Arrival Date: 09/07/2024 Time: 15:59 Bed 15 Private MD: ED Physician Jorge Evans HPI: 09/07 17:48 This 59 yrs old Male presents to ER via Ambulatory with complaints of Flu bo1 Symptoms, Anxiety, Blurred Vision, Back Pain. 17:48 The patient presents with pain that is chronic, with no known mechanism of injury. bo1 Onset: The symptoms/episode began/occurred gradually. Associated signs and symptoms: Pertinent positives: fever, Cheeks hurt, "flu-like sxs". The problem was sustained without known cause, But was exposed with room mate - 2 weeks ago with "Covid-19" confirmed by testing. The patient has experienced a previous episode, and the symptoms today are exactly the same, Causing "anxiety and panic attacks.". Historical: - Allergies: 16:26 Iodine; kj2 - PMHx: 16:26 Anxiety; CVA-11/10/2022 with left sided deficit (Tib/Fib SX Left); DM; kj2 Hypercholesterolemia; Hypertensive disorder; Left Ankle; stroke; Tib/Fib SX Left; - Immunization history:: Adult Immunizations unknown. - Infectious Disease History:: Denies. - Social history:: Smoking status: unknown. ROS: 17:49 Constitutional: Negative for weight loss bo1 17:49 Constitutional: Positive for chills, fever, 17:49 ENT: Positive for sinus congestion, sinus pain, 17:49 Neck: Negative for pain with movement, pain at rest, 17:49 Cardiovascular: Negative for chest pain, 17:49 Respiratory: Positive for cough, Non- productive, 17:49 Abdomen/GI: Positive for nausea, Negative for abdominal pain, vomiting, diarrhea, 17:49 MS/extremity: Negative for pain, swelling, warmth, 17:49 Skin: Negative for lesions, 17:49 Psych: Positive for anxiety, 17:49 All other systems are negative, 17:53 Abdomen/GI: Negative for bo1 Exam: 17:51 Constitutional: This is a well developed, well nourished patient who is awake, alert, bo1 and in no acute distress. 17:51 Constitutional: The patient appears in no acute distress, alert, awake, comfortable, non-toxic, 17:51 Head/face: Exam is negative for acute changes, 17:51 ENT: Exam is negative for acute changes, TM's: are normal, 17:51 Neck: External neck: is normal, no acute changes, ROM/movement: is normal, no acute changes, 17:51 Cardiovascular: Rate: normal, Pulses: no pulse deficits are appreciated, 17:51 Respiratory: the patient does not display signs of respiratory distress, Respirations: normal, no acute changes, Breath sounds: are clear throughout, 17:51 Skin: no rash present. 17:51 Neuro: Exam negative for acute changes, focal neuro deficits, 17:51 Psych: Behavior/mood is pleasant, cooperative, Affect is calm, Oriented to person, place, time, Vital Signs: 16:23 BP 175 / 95; Pulse 96; Resp 20; Temp 98.6; Pulse Ox 96% ; Weight 99.79 kg; Height 5 ft. kj2 4 in. ; 17:30 BP 138 / 125; Pulse 89; Resp 18; Pulse Ox 93% ; kj2 18:34 BP 136 / 90; Pulse 78; Resp 20; Temp 98.4; Pulse Ox 95% on R/A; kj2 16:23 Body Mass Index 37.76 (99.79 kg, 162.56 cm) kj2 MDM: 16:04 Medical Screening Exam initiated bo1 17:52 Differential diagnosis: Viral illness. Data reviewed: vital signs, lab test result(s). bo1 I considered the following discharge prescriptions or medication management in the emergency department Medications were administered in the Emergency Department. See MAR. ED course: Pt is improved. Possible non Covid or flu illness. Treat symptoms with Rx. 09/07 16:30 Order name: COVID-19 Ag + Flu A+B Ag; Complete Time: 17:25 bo1 Administered Medications: 16:43 Drug: Ondansetron Oral Disintegrating Tablet Oral Disintegrating Tablet 8 mg PO once; kj2 may repeat once in 8-12 hours Route: PO; 18:36 Follow up: Response: No adverse reaction kj2 16:43 Drug: Acetaminophen PO 1000 mg PO once Route: PO; kj2 18:36 Follow up: Response: No adverse reaction kj2 Disposition Summary: 09/07/24 17:55 Discharge Ordered Notes: Location: Home bo1 Problem: new bo1 Symptoms: have improved bo1 Condition: Stable bo1 Diagnosis - Viral infection, unspecified bo1 - Nausea bo1 - Other acute sinusitis bo1 Followup: bo1 - With: Private Physician - When: Upon discharge from the Emergency Department - Reason: Recheck today's complaints, Continuance of care Discharge Instructions: - Discharge Summary Sheet bo1 - Nausea, Adult bo1 - Sinusitis, Adult bo1 Forms: - Medication Reconciliation Form bo1 - Antibiotic Education bo1 - Prescription Opioid Use bo1 - Patient Portal Instructions bo1 - Leadership Thank You Letter bo1 Prescriptions: - azithromycin 250 mg Oral tablet - take 1 dose pack ORAL route as directed on dose pack Take 500 mg per dose pack bo1 on day #1: Then take 250 mg once daily for 4 days; 1 Kit; Refills: 0, Product Selection Permitted - ondansetron 8 mg Oral Tablet,disintegrating - take 1 tablet ORAL route every 8 hours; 15 tablet; Refills: 0, Product bo1 Selection Permitted Signatures: Dispatcher [employer] EDMS Jorge Evans MD MD bo1 Idalia Quiles RN RN kj2 Corrections: (The following items were deleted from the chart) 17:53 17:49 Abdomen/GI: Negative for abdominal pain, nausea and vomiting, bo1 bo1
--- NOTE | 2024-09-07 17:55 | ER ---
Nurse's Notes [facility] Name: Liu Almonte Age: 59 yrs Sex: Male : 1965 Arrival Date: 09/07/2024 Time: 15:59 Bed 15 Private MD: Diagnosis: Viral infection, unspecified;Nausea;Other acute sinusitis Presentation: 09/07 16:23 Chief complaint: Patient states: headache, eyes sore, nausea, weakness, anxiety. kj2 Coronavirus screen: Client denies travel out of the [place] in the last 14 days. Ebola Screen: No symptoms or risks identified at this time. Initial Sepsis Screen: Does the patient meet any 2 criteria? No. Patient's initial sepsis screen is negative. Does the patient have a suspected source of infection? No. Patient's initial sepsis screen is negative. Risk Assessment: Do you want to hurt yourself or someone else? Patient reports no desire to harm self or others. Onset of symptoms was September 07, 2024. 16:23 Method Of Arrival: Ambulatory kj2 16:23 Acuity: [place] 3 kj2 Triage Assessment: 16:26 General: Appears in no apparent distress. uncomfortable, Behavior is calm, cooperative. kj2 Pain: Complains of pain in head, eyes, stomach Pain currently is 6 out of 10 on a pain scale. Neuro: Level of Consciousness is awake, alert, obeys commands, Oriented to person, place, time, situation. Cardiovascular: Patient's skin is warm and dry. Respiratory: Airway is patent Respiratory effort is even, unlabored. GI: Reports nausea. 16:27 : No signs and/or symptoms were reported regarding the genitourinary system. kj2 Musculoskeletal: back pain. Historical: - Allergies: 16:26 Iodine; kj2 - PMHx: 16:26 Anxiety; CVA-11/10/2022 with left sided deficit (Tib/Fib SX Left); DM; kj2 Hypercholesterolemia; Hypertensive disorder; Left Ankle; stroke; Tib/Fib SX Left; - Immunization history:: Adult Immunizations unknown. - Infectious Disease History:: Denies. - Social history:: Smoking status: unknown. Screenin:28 [facility] ED Fall Risk Assessment (Adult) History of falling in the last 3 months, kj2 including since admission No falls in past 3 months (0 pts) Confusion or Disorientation No (0 pts) Intoxicated or Sedated No (0 pts) Impaired Gait No (0 pts) Mobility Assist Device Used No (0 pt) Altered Elimination No (0 pt) Score/Fall Risk Level 0 - 2 = Low Risk Maintained a safe environment, Hourly rounding (assess needs \T\ fall precautionary measures) done. Abuse screen: Denies threats or abuse. Denies injuries from another. Nutritional screening: No deficits noted. Tuberculosis screening: No symptoms or risk factors identified. Assessment: 16:28 General: see triage assessment. kj2 17:29 Reassessment: Patient appears in no apparent distress at this time. Patient and/or kj2 family updated on plan of care and expected duration. Pain level reassessed. Patient is alert, oriented x 3, equal unlabored respirations, skin warm/dry/pink. 18:34 Reassessment: Patient appears in no apparent distress at this time. Patient and/or kj2 family updated on plan of care and expected duration. Pain level reassessed. Patient is alert, oriented x 3, equal unlabored respirations, skin warm/dry/pink. Vital Signs: 16:23 BP 175 / 95; Pulse 96; Resp 20; Temp 98.6; Pulse Ox 96% ; Weight 99.79 kg; Height 5 ft. kj2 4 in. ; 17:30 BP 138 / 125; Pulse 89; Resp 18; Pulse Ox 93% ; kj2 18:34 BP 136 / 90; Pulse 78; Resp 20; Temp 98.4; Pulse Ox 95% on R/A; kj2 16:23 Body Mass Index 37.76 (99.79 kg, 162.56 cm) kj2 ED Course: 16:03 Patient arrived in ED. al6 16:04 Jorge Evans MD is Attending Physician. bo1 16:04 Idalia Quiles, PAULINA is Primary Nurse. kj2 16:26 Triage completed. kj2 16:29 Arm band placed on Patient placed in an exam room, on a stretcher. kj2 16:29 Patient has correct armband on for positive identification. Bed in low position. Call kj2 light in reach. Side rails up X 1. Provided Education on: call light. 16:43 COVID-19 Ag + Flu A+B Ag Sent. kj2 18:35 No provider procedures requiring assistance completed. Patient did not have IV access kj2 during this emergency room visit. Administered Medications: 16:43 Drug: Ondansetron Oral Disintegrating Tablet Oral Disintegrating Tablet 8 mg PO once; kj2 may repeat once in 8-12 hours Route: PO; 18:36 Follow up: Response: No adverse reaction kj2 16:43 Drug: Acetaminophen PO 1000 mg PO once Route: PO; kj2 18:36 Follow up: Response: No adverse reaction kj2 Medication: 16:29 VIS not applicable for this client. kj2 Outcome: 17:55 Discharge ordered by . laura 18:35 Discharged to home ambulatory, kj2 18:35 Condition: stable 18:35 Discharge instructions given to patient, Instructed on discharge instructions, follow up and referral plans. Demonstrated understanding of instructions, follow-up care, 18:44 Patient left the ED. kj2 Signatures: Jorge Evans MD MD bo1 Idalia Quiles, RN RN kj2 Rachel Ivey6
[2024-09-07 18:51] VITALS: BP 136/90; TEMP 98.4; O2SAT 95
== END 2024-09-07 18:44 | disposition home or self-care (01) ==
LOC: ER 15:59
DX: B34.9 Viral infection, unspecified (principal); J01.80 Other acute sinusitis; R11.0 Nausea; Z11.52 Encounter for screening for COVID-19
CPT/HCPCS: 36415; 99283; 87428; Q0162